=== PATIENT | female | born 1945 | race Caucasian/White ===

== ENCOUNTER 2017-07-29 21:57 | Inpatient (IN) | payer MEDICARE, OTHER ==
[~2017-07-29] VITALS: Ht 162.6 cm; Wt 73.0 kg
[~2017-07-29 21:57] MED LIST: BACT2OIN TOP; HUMALOG 70/30 SQ; SULF-154 PO
[2017-07-29 21:59] VITALS: BP 147/80; PULSE 62; RESP 18
[2017-07-29 22:10] VITALS: O2SAT 94
[2017-07-29 22:11] VITALS: TEMP 97
[2017-07-29] MEDS ORDERED: DEXT 5%-NACL 0.9% 1000 ML INJ 1,000 ML IV SCH (22:16)
--- NOTE | 2017-07-29 22:16 | PD ---
HPI Chief Complaint: Respiratory Distress Time Seen by Provider: 22:07 Travel History International Travel<30 days: No Contact w/Intl Traveler<30days: No Traveled to known affect area: No History of Present Illness HPI The patient is a 72 year old female who presents to the [facility] emergency department with a history of having a decreased level of consciousness at her local half-way prior to arrival. The patient on ambulance services arrival was noted to have an O2 saturation on nasal cannula in the 60s, rales audible bilaterally, and a blood sugar of 20. IV access was obtained and the patient was given D10 IV, the patient's blood sugar came up to 173. The patient's level of consciousness improved. The patient was placed on CPAP and her oxygenation improved into the 90s. No Lasix was administered prior to arrival. 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 The patient on arrival is awake and alert. The patient denies having any chest pain or shortness of breath currently. The patient reports that she has had a diminished appetite. She reports that her insulin was administered today, however she is unsure of the time. She denies having any abdominal pain, nausea, vomiting, or diarrhea. The patient was briefly placed on oximetry well CPAP was changed to BiPAP and was noted to have a room air oxygen in the upper 70s. She denies having any worsening lower extremity edema. She denies having any known fevers. The patient reports that she has had a nonproductive cough and congestion over the last 2 days. I review systems otherwise she denies having any neck pain, urinary symptoms, or new neurologic symptoms. 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 Cardiovascular Problems: Yes Diabetes: Yes ?: Not Menopausal: Yes Past Surgical History Narrative Surgical The patient's past surgical history is significant for three-vessel coronary artery bypass grafting. Cholecystectomy: Yes Social History Alcohol Use: No Tobacco Use: No Substance Use: No Allergies-Medications (Allergen,Severity, Reaction): Coded Allergies: No Known Allergies (Verified , 07/29/17) Reported Meds & Prescriptions Reported Meds & Active Scripts Active Reported [Skin Cream] TP BID Tylenol (Acetaminophen) 325 Mg Tab 650 Mg PO Q6H PRN Tussin Cough Liq (Dextromethorphan HBr) 15 Mg/5 Ml Syp 10 Ml PO Q8H PRN Humalog Inj (Insulin Human Lispro) 1,000 Unit/10 Ml Vial 4-10 Units SQ QID Max dose at bedtime:( )units; sugars < 70,(0)units; sugars 150-199,(2)units; sugars 200-249,(4)units; sugars 250-299,(7)units; sugars 300-349,(10)units; sugars more than 349,(12)units. Humalog Inj (Insulin Human Lispro) 1,000 Unit/10 Ml Vial 4-10 Units SQ ACHS Max dose at bedtime:( )units; sugars < 70,(0)units; sugars 150-199,(2)units; sugars 200-249,(4)units; sugars 250-299,(7)units; sugars 300-349,(10)units; sugars more than 349,(12)units. Duoneb (Ipratropium-Albuterol Neb) 0.5-2.5 Mg/3 Ml Neb 1 Nebule INH Q6HR NEB Carvedilol 12.5 Mg Tab 12.5 Mg PO BID Losartan (Losartan Potassium) 25 Mg Tab 25 Mg PO DAILY Lasix (Furosemide) 20 Mg Tab 20 Mg PO DAILY Lantus Inj (Insulin Glargine) 1,000 Unit/10 Ml Vial 40 Units SQ DAILY Famotidine 20 Mg Tab 20 Mg PO HS Docusate Sodium 100 Mg Cap 100 Mg PO HS Atorvastatin (Atorvastatin Calcium) 40 Mg Tab 40 Mg PO HS Aspirin Low Dose (Aspirin) 81 Mg Chew 81 Mg CHEW DAILY Amlodipine (Amlodipine Besylate) 2.5 Mg Tab 2.5 Mg PO DAILY Review of Systems Except as stated in HPI: all other systems reviewed are Neg General / Constitutional: No: Fever Eyes: No: Visual changes HENT: Positive: Congestion, No: Headaches Cardiovascular: No: Chest Pain or Discomfort Respiratory: Positive: Cough, Shortness of Breath Gastrointestinal: Positive: Loss of Appetite, No: Nausea, Vomiting, Diarrhea, Abdominal Pain Genitourinary: No: Dysuria Musculoskeletal: No: Pain Skin: No Rash Neurologic: Positive: Change in Mentation, No: Weakness, Focal Abnormalities, Slurred Speech, Sensory Disturbance Psychiatric: No: Depression Endocrine: No: Polydipsia Hematologic/Lymphatic: No: Easy Bruising Physical Exam Narrative General: The patient is a well-developed well-nourished female, in no acute distress, intermittent productive sounding cough on examination. Head and Neck exam: Head is normocephalic atraumatic. Eyes: EOMI, pupils are equal round and reactive to light. Nose: Midline septum with pink mucous membranes Mouth: Dentition unremarkable. Moist mucus membranes. Posterior oropharynx is not erythematous. No tonsillar hypertrophy. Uvula midline. Airway patent. Neck: No palpable lymphadenopathy. No nuchal rigidity. No thyromegaly. Cardiovascular: Regular rate and rhythm without murmurs, gallops, or rubs. No pulse deficit to the extremities on simultaneous auscultation and palpation of her radial artery. Lungs: The patient is noted to have crackles in bilateral bases, soft expiratory wheezes audible posteriorly, crackles audible anteriorly. No accessory muscle use. No paroxysmal abdominal breathing. Abdomen: Soft, without tenderness to palpation in all 4 quadrants of the abdomen. No guarding, rebound, or rigidity. Normal bowel sounds are audible. No tenderness on palpation of McBurney's point. Negative Londono's sign. Extremities: No clubbing, cyanosis, or edema. 2+ pulses in all 4 extremities. No calf tenderness on palpation. Back: No spinous process tenderness to palpation. No costovertebral angle tenderness to palpation. Neurologic Exam: Grossly nonfocal. Skin Exam: No rash noted. Intact skin that is warm and dry. Data Data Last Documented VS Vital Signs Date Time Temp Pulse Resp B/P (MAP) Pulse Ox O2 Delivery O2 Flow Rate FiO2 07/29/17 23:49 93 Nasal Cannula 4.00 07/29/17 23:46 63 20 124/59 (80) 07/29/17 22:13 100 07/29/17 22:11 97.0 Orders Orders Resp Request For Service (07/29/17 22:07) Electrocardiogram (07/29/17 22:07) Complete Blood Count With Diff (07/29/17 22:07) Comprehensive Metabolic Panel (07/29/17 22:07) Creatine Kinase (Cpk) (07/29/17 22:07) Ckmb (Isoenzyme) Profile (07/29/17 22:07) Troponin I (07/29/17 22:07) B-Type Natriuretic Peptide (07/29/17 22:07) Prothrombin Time / Inr (Pt) (07/29/17:) Act Partial Throm Time (Ptt) (07/29/17 22:07) Arterial Blood Gas (Abg) (07/29/17 22:07) C-Reactive Protein (Crp) (07/29/17 22:07) Lipase (07/29/17:) Urinalysis - C+S If Indicated (07/29/17 22:) Magnesium (Mg) (07/29/17 22:07) Chest, Single Ap (07/29/17:) Iv Access Insert/Monitor (07/29/17:) Ecg Monitoring (07/29/17:) Oximetry (07/29/17:) Urinary Catheter Insert/Apply (07/29/17:) Bedside Glucose Q15M (07/29/17 22:16) Hypoglycemia 70 Mg/Dl Or < (07/29/17 22:16) Dextrose 50% In [place] (Vial) Inj (D50w (Vi (07/29/17 22:30) Dext 5%-Nacl 0.9% 1000 Ml Inj (D5w-Ns 10 (07/29/17 22:16) Furosemide Inj (Lasix Inj) (07/29/17 22:30) Sodium Chloride 0.9% Flush (Ns Flush) (07/29/17 22:30) Methylprednisolone So Succ Inj (Solumedr (07/29/17 22:30) Albuterol-Ipratropium Neb (Duoneb Neb) (07/29/17 22:30) Lactic Acid Sepsis Protocol (07/29/17 22:17) Blood Culture (07/29/17 22:17) Urine Culture (07/29/17 22:15) Dextrose 50% In [place] (Syr) Inj (D50w (Syr (07/29/17 23:05) CKMB (07/29/17 22:15) CKMB% (07/29/17 22:15) Ceftriaxone Inj (Rocephin Inj) (07/30/17 00:00) Azithromycin Inj (Zithromax Inj) (07/30/17 00:00) Admit Order (Ed Use Only) (07/30/17 00:08) Labs Laboratory Tests Test 07/29/17 22:15 07/29/17 22:19 07/29/17 22:25 White Blood Count 13.8 TH/MM3 Red Blood Count 4.20 MIL/MM3 Hemoglobin 12.5 GM/DL Hematocrit 38.3 % Mean Corpuscular Volume 91.3 FL Mean Corpuscular Hemoglobin 29.9 PG Mean Corpuscular Hemoglobin Concent 32.7 % Red Cell Distribution Width 14.4 % Platelet Count 176 TH/MM3 Mean Platelet Volume 8.5 FL Neutrophils (%) (Auto) 83.7 % Lymphocytes (%) (Auto) 8.1 % Monocytes (%) (Auto) 6.4 % Eosinophils (%) (Auto) 1.5 % Basophils (%) (Auto) 0.3 % Neutrophils # (Auto) 11.6 TH/MM3 Lymphocytes # (Auto) 1.1 TH/MM3 Monocytes # (Auto) 0.9 TH/MM3 Eosinophils # (Auto) 0.2 TH/MM3 Basophils # (Auto) 0.0 TH/MM3 CBC Comment DIFF FINAL Differential Comment Prothrombin Time 9.7 SEC Prothromb Time International Ratio 0.9 RATIO Activated Partial Thromboplast Time 21.3 SEC Urine Color LIGHT-YELLOW Urine Turbidity CLEAR Urine pH 5.0 Urine Specific [place] 1.009 Urine Protein 30 mg/dL Urine Glucose (UA) TRACE mg/dL Urine Ketones NEG mg/dL Urine Occult Blood NEG Urine Nitrite NEG Urine Bilirubin NEG Urine Urobilinogen LESS THAN 2.0 MG/DL Urine Leukocyte Esterase NEG Urine RBC 1 /hpf Urine WBC LESS THAN 1 /hpf Urine Squamous Epithelial Cells <1 /hpf Urine Bacteria MANY /hpf Urine Hyaline Casts 3 /lpf Urine Mucus FEW /lpf Microscopic Urinalysis Comment CULTURE INDICATED Blood Urea Nitrogen 38 MG/DL Creatinine 1.77 MG/DL Random Glucose 58 MG/DL Total Protein 7.1 GM/DL Albumin 2.7 GM/DL Calcium Level 9.1 MG/DL Magnesium Level 2.4 MG/DL Alkaline Phosphatase 102 U/L Aspartate Amino Transf (AST/SGOT) 40 U/L Alanine Aminotransferase (ALT/SGPT) 26 U/L Total Bilirubin 0.6 MG/DL Sodium Level 141 MEQ/L Potassium Level 4.5 MEQ/L Chloride Level 109 MEQ/L Carbon Dioxide Level 26.5 MEQ/L Anion Gap 6 MEQ/L Estimat Glomerular Filtration Rate 28 ML/MIN Total Creatine Kinase 155 U/L Creatine Kinase MB 1.4 NG/ML Troponin I LESS THAN 0.02 NG/ML C-Reactive Protein 6.98 MG/DL B-Type Natriuretic Peptide 510 PG/ML Lipase 128 U/L Blood Gas Puncture Site LT RADIAL Blood Gas Patient Temperature 98.6 Blood Gas HCO3 26 mmol/L Blood Gas Base Excess 2.4 mmol/L Blood Gas Oxygen Saturation 94 % Arterial Blood pH 7.44 Arterial Blood Partial Pressure CO2 39 mmHg Arterial Blood Partial Pressure O2 76 mmHG Arterial Blood Oxygen Content 15.6 Vol % Arterial Blood Carboxyhemoglobin 1.0 % Arterial Blood Methemoglobin 0.7 % Blood Gas Hemoglobin 11.7 G/DL Oxygen Delivery Device BiPAP Blood Gas Ventilator Setting IPAP 12/EPAP 6 Blood Gas Inspired Oxygen 50 % Lactic Acid Level 1.5 mmol/L [facility] Medical Decision Making Medical Screen Exam Complete: Yes Emergency Medical Condition: Yes Medical Record Reviewed: Yes Interpretation(s) Last Impressions Chest X-Ray 07/29/172206 Signed Impressions: Service Date/Time: Saturday, July 29, 2017 22:54 - CONCLUSION: 1. Patchy basilar airspace disease without significant effusion. Postop CABG and pacer lead placement. Meliton Jones MD Differential Diagnosis Congestive heart failure exacerbation, versus pneumonia, versus poor respiratory effort related to hypoglycemia and metabolic encephalopathy, versus acute coronary syndrome Narrative Course During the course of the patients emergency department visit, the patients history, examination, and differential diagnosis were reviewed with the patient. The patient had the patient was placed on a monitoring analyst with oximetry and blood pressure monitoring. An ECG was done on arrival. The patient's ECG reveals an electronic atrial paced rhythm heart rate of 63, no acute ST segment elevation or depression is noted. QRS duration is 100 ms, QTC 446 ms. IV access obtained and blood work sent for analysis. The patient was placed on BiPAP by respiratory therapy. An ABG will be done. The patient was initially provided DuoNeb 3, Lasix 40 mg IV. A Velasquez catheter will be placed to gravity. The patient's laboratory studies were reviewed and remarkable for white count of 13.8, hemoglobin 12.5, platelets 176 with 83.7 neutrophils, lymphocytes 8.1, CMP is remarkable for chloride of 109, BUN 38, creatinine 1.77, glucose 58. The patient did have a drop in her blood sugar again during initial evaluation. The patient was given 1 amp of D50. The patient was started on D5 normal saline IV fluid drip. To be K was 155, troponin I less than 0.02, C-reactive protein was 6.98 and given the patient's elevated white blood cell count the patient was treated for possible pneumonia with Rocephin 1 g IV, azithromycin 500 IV, BNP is remarkable for being elevated at 510 suggesting a component of fluid overload and pulmonary edema, albumin 2.7, lipase 128, lactic acid 1.5, PT 9.7, PTT 21.3, urinalysis shows 30 protein many bacteria, culture indicated. Radiologic studies were reviewed and remarkable for a chest x-ray that shows patchy bibasilar airspace disease without significant effusion, postop CABG and pacer lead placement. The patients results were discussed with the patient, including the plan of care. I explained that further testing and/ or monitoring is indicated based on the patients history, examination, and/ or laboratory findings. Therefore, I recommended admission for additional evaluation. The patient expressed understanding and was agreeable with this plan. The patient was admitted to the hospital in guarded condition and [facility] Critical Care Narrative Aggregate critical care time was 35 minutes. Time to perform other separately billable procedures was not included in the critical care time. My time did not include minutes spent treating any other patients simultaneously or on activities that did not directly contribute to the patient's treatment. The services I provided to this patient were to treat and/or prevent clinically significant deterioration that could result in: Hypoxemic encephalopathy, versus respiratory failure, versus cardiovascular collapse from sepsis. I provided critical care services requiring my management, as noted below: Chart data review, documentation time, medication orders and management, vital sign assessments/reviewing monitor data, ordering and reviewing lab tests, ordering and interpreting/reviewing x-rays and diagnostic studies, care of the patient and discussion of the patient with the admitting physicians. Sepsis Criteria SIRS Criteria (2 or more): WBC > 64124, < 4000 or > 10% bands Physician Communication Physician Communication The patient's case was discussed with Dr. Amador who did agree to admit the patient for further evaluation and treatment at this time. Diagnosis Primary Impression: CHF exacerbation Qualified Codes: I50.9 - Heart failure, unspecified Additional Impressions: Hypoglycemia UTI (urinary tract infection) Qualified Codes: N39.0 - Urinary tract infection, site not specified Hypoxemia Admitting Information Admitting Physician Requests: it Mirian Lares MD Jul 29, 2017 22:16
[2017-07-29] MEDS ORDERED: FUROSEMIDE 40 MG/4 ML VIAL IV PUSH ONE (22:30)
[2017-07-29] MEDS ORDERED: methylPREDNISolone SOD SUCC 125 MG/2 ML VIAL IVP ONE (22:30)
[2017-07-29] MEDS ORDERED: SODIUM CHLORIDE 0.9% FLUSH 10 ML FLUSH IVF PRN (22:30)
[2017-07-29] MEDS ORDERED: DEXTROSE 50% IN WATER 50 ML VIAL(D50) IV PRN (22:30)
[2017-07-29 22:35] LABS: BACTERIA, URINE MANY /hpf; BLOOD, URINE NEG (NEG); COMMENT (UR) CULTURE INDICATED; CULTURE IF INDICATED CULTURE INDICATED; GLUCOSE,URINE TRACE mg/dL (NEG); HYALINE CAST, URINE 3 /lpf (RARE); KETONE, URINE NEG (NEG); MUCUS URINE FEW /lpf (OCC); NITRITE,URINE NEG (NEG); SQUAMOUS EPITHELIAL CELL URINE <1 /hpf (0-5); URINE COLOR LIGHT-YELLOW (YELLW/STRAW)
[2017-07-29 22:37] LABS: AUTOMATED NEUTROPHIL # 11.6 TH/MM3 (1.8-7.7); BASOPHIL % 0.3 % (0.0-2.0); EOSINOPHIL # 0.2 TH/MM3 (0-0.4); EOSINOPHIL % 1.5 % (0.0-4.0); HEMATOCRIT 38.3 % (35.0-46.0); HEMO FLAGS DIFF FINAL; LYMPH % 8.1 % (9.0-44.0); LYMPHOCYTE # 1.1 TH/MM3 (1.0-4.8); MEAN CELL VOLUME 91.3 FL (80.0-100.0); MEAN CORPUSCULAR HEMOGLOBIN 29.9 PG (27.0-34.0); MEAN CORPUSCULAR HGB CONC 32.7 % (32.0-36.0); MONO % 6.4 % (0.0-8.0); NEUT % 83.7 % (16.0-70.0); PLATELET COUNT 176 TH/MM3 (150-450); RED CELL DISTRIBUTION WIDTH 14.4 % (11.6-17.2); WHITE BLOOD COUNT 13.8 TH/MM3 (4.0-11.0)
[2017-07-29 22:39] LABS: BLOOD GAS BASE EXCESS 2.4 mmol/L (-2-2); BLOOD GAS HCO3 26 mmol/L (22-26); BLOOD GAS METHEMOGLOBIN 0.7 % (0-2); BLOOD GAS O2 HGB SATURATION 94 % (90-100); BLOOD GAS OXYGEN CONTENT 15.6 Vol % (12.0-20.0); BLOOD GAS PCO2 39 mmHg (38-42); BLOOD GAS PO2 76 mmHG (61-120); BLOOD GAS TOTAL HGB 11.7 G/DL (12.0-16.0); CRITICAL VALUE NO; TEMP CORR TO 98.6
[2017-07-29 22:40] LABS: DRAW SITE LT RADIAL; FIO2 50 %; NUMBER OF ARTERIAL PUNCTURES 1; OXYGEN DEVICE BiPAP; STAT YES; ULNAR PULSE PRESENT; VENT SETTINGS IPAP 12/EPAP 6
[2017-07-29 22:49] LABS: APTT (PATIENT) 21.3 SEC (24.3-30.1); INTERNATIONAL NORMALIZED RATIO 0.9 RATIO; PROTHROMBIN TIME - PATIENT 9.7 SEC (9.8-11.6)
[2017-07-29] MEDS ORDERED: LANTUS2P SQ (22:56)
[2017-07-29] MEDS ORDERED: ATOR40TA16 PO (22:56)
[2017-07-29] MEDS ORDERED: AMLO2.5T PO (22:56)
[2017-07-29] MEDS ORDERED: FURO1TAB62 PO (22:56)
[2017-07-29] MEDS ORDERED: ASPI81CH37 CHEW (22:56)
[2017-07-29] MEDS ORDERED: LOSA25TA PO (22:56)
[2017-07-29] MEDS ORDERED: DOCU100C PO (22:56)
[2017-07-29] MEDS ORDERED: FAMO20TA2 PO (22:56)
[2017-07-29] MEDS: RESP: ALBUTEROL 2.5 MG/IPRATROPIUM 0.5 MG NEB (SCH) INH ×2 (22:58→22:59)
[2017-07-29] MEDS ORDERED: IPRASOL INH (22:59)
[2017-07-29] MEDS ORDERED: CARV12.52 PO (22:59)
[2017-07-29] MEDS ORDERED: DEXTROSE 50% IN WATER 50 ML SYRINGE ONE (23:05)
[2017-07-29 23:10] LABS: ALKALINE PHOSPHATASE 102 U/L (45-117); ALT (GPT) 26 U/L (10-53); ANION GAP 6 MEQ/L (5-15); AST (GOT) 40 U/L (15-37); BICARBONATE 26.5 MEQ/L (21.0-32.0); BLOOD UREA NITROGEN 38 MG/DL (7-18); CHLORIDE 109 MEQ/L (98-107); CREATINE KINASE 155 U/L (26-192); GLOMERULAR FILTRATION RATE 28 ML/MIN (>89); MAGNESIUM 2.4 MG/DL (1.5-2.5); SODIUM (NA) 141 MEQ/L (136-145); TOTAL BILIRUBIN ADULT 0.6 MG/DL (0.2-1.0)
[2017-07-29 23:11] LABS: POTASSIUM 4.5 MEQ/L (3.5-5.1)
--- NOTE | 2017-07-29 23:17 | RADRPT ---
EXAM DATE/TIME: 07/29/2017 22:54 [place] COMPARISON: No previous studies available for comparison. INDICATIONS : Shortness of breath. MEDICAL HISTORY : Congestive heart failure. Hypertension Hypercholesterolemia. GERD. SURGICAL HISTORY : Pacemaker. CABG. ENCOUNTER: Initial ACUITY: 1 day PAIN SCORE: Non-responsive. LOCATION: Bilateral chest FINDINGS: There is a single airspace disease at the lung bases. No effusion. No pneumothorax. Heart size within normal limits. Postop CABG and pacer lead placement. CONCLUSION: 1. Patchy basilar airspace disease without significant effusion. Postop CABG and pacer lead placement . Meliton Jones MD on July 29, 2017 at 23:14 Board Certified Radiologist. This report was verified electronically.
[2017-07-29 23:23] LABS: CKMB 1.4 NG/ML (0.5-3.6)
[2017-07-29 23:46] VITALS: BP 124/59; PULSE 63; RESP 20; O2SAT 91
[2017-07-29 23:49] VITALS: O2SAT 93
[2017-07-30] VITALS (29 sets, daily range): BP systolic 125–154; BP diastolic 58–88; PULSE 60–87; RESP 18–20; TEMP 97.8–101.7; O2SAT 63–97
[2017-07-30] MEDS ORDERED: cefTRIAXone INJ 1,000 MG in SODIUM CHLORIDE 0.9% INJ 100 ML IV ONE ×2
[2017-07-30] MEDS ORDERED: AZITHROMYCIN INJ 500 MG in SODIUM CHLOR 0.9% 250 ML INJ 250 ML IV ONE ×2
[2017-07-30] MEDS ORDERED: GLUCAGON 1 MG/ML VIAL OTHER PRN ×2 (00:15→13:45)
[2017-07-30] MEDS ORDERED: NALOXONE HCL 0.4 MG/ML AMP IV PRN (00:15)
[2017-07-30] MEDS ORDERED: RESP: ALBUTEROL 2.5 MG/IPRATROPIUM 0.5 MG NEB (PRN) NEB (00:15)
[2017-07-30] MEDS ORDERED: SODIUM CHLORIDE 0.9% FLUSH 10 ML FLUSH IV FLUSH PRN (00:15)
[2017-07-30] MEDS ORDERED: DEXTROSE 50% IN WATER 50 ML VIAL(D50) IV PRN ×2 (00:15→13:45)
[2017-07-30] MEDS ORDERED: TYLE325T PO (00:21)
[2017-07-30] MEDS ORDERED: TUSS15SY PO (00:21)
[2017-07-30] MEDS ORDERED: HUMALOG SQ ×2 (00:21)
[2017-07-30] MEDS ORDERED: SKIN CREAM TP (00:21)
[2017-07-30] MEDS ORDERED: DEXTROSE 10% INJ 500 ML IV SCH (00:30)
--- NOTE | 2017-07-30 01:02 | HHI.HP ---
HPI Service [facility] Primary Care Physician No Primary Care Physician Admission Diagnosis hypoglycemia, chf exacerbation, pneumonia Diagnoses: Travel History International Travel<30 Days: No Contact w/Intl Traveler <30 Da: No Traveled to Known Affected Are: No History of Present Illness History from patient, ER physician communication, and review of alf notes. Patient reported that she actually does not remember anything. She does not know why she is in hospital. She thinks that she might have passed out. Per EMS communication and ER communication, patient was brought in from the alf because of altered mental status/unresponsiveness. Patient was found to have blood sugars in the 20s upon EMS arrival. She was also in respiratory distress for which they had to put her on nebulizer treatments and on BiPAP upon transport. By the time patient arrives ER, patient's blood sugars were improving initially. Patient also reports of one week of coughing. She denies shortness of breath associated with it. Also denies fever. She states that her cough was productive of whitish phlegm and that it has changed her voice. She denies any nausea or vomiting. Denies diarrhea. Denies any chest pains or abdominal pains. Denies any history of burning or pain on urination. She states that she is diabetic and takes pills. She also takes some insulin as needed. In the emergency room, patient's workup revealed elevated BNP for which Lasix 40 mg IV was given as well. She was then placed on Velasquez catheter and currently the Velasquez bag has 1400 cc of urine. Patient was also off BiPAP by the time I see her. She was saturating about 95% on 2 L nasal cannula I then after this Lasix treatment. Review of Systems Except as stated in HPI: all other systems reviewed are Neg Past Family Social History Past Medical History htn dm chf ppm Past Surgical History ppm Allergies: Coded Allergies: No Known Allergies (Verified , 07/29/17) Family History mother- dm Social History denies smoking/ etoh abuse/ drug abuse Physical Exam Vital Signs Vital Signs Date Time Temp Pulse Resp B/P (MAP) Pulse Ox O2 Delivery O2 Flow Rate FiO2 07/29/17 23:49 93 Nasal Cannula 4.00 9/11/17 23:46 63 20 124/59 (80) 91 Nasal Cannula 4.00 07/29/17 22:13 BiPAP 100 07/29/17 22:11 97.0 07/29/17 22:10 94 100 07/29/17 21:59 62 18 147/80 (102) Physical Exam GENERAL: This is a well-nourished, well-developed patient, in no apparent distress. SKIN: No rashes, ecchymoses or lesions. Cool and dry. HEAD: Atraumatic. Normocephalic. No temporal or scalp tenderness. EYES: . No scleral icterus. No injection or drainage. ENT: Nose without bleeding, purulent drainage or septal hematoma. Airway patent. NECK: Trachea midline. No JVD CARDIO: no JVD, regular rate and rhythm, no murmur appreciated RESPIRATORY: Clear to auscultation. Breath sounds equal bilaterally. No wheezes , rales, or rhonchi. GASTROINTESTINAL: Abdomen soft, non-tender, nondistended. No guarding. MUSCULOSKELETAL: Extremities without clubbing, cyanosis, or edema. . No calf tenderness. NEUROLOGICAL: Awake and alert. Motor and sensory grossly within normal limits. Normal speech. Laboratory Laboratory Tests Test 07/29/17 22:15 07/29/17 22:19 07/29/17 22:25 White Blood Count 13.8 Red Blood Count 4.20 Hemoglobin 12.5 Hematocrit 38.3 Mean Corpuscular Volume 91.3 Mean Corpuscular Hemoglobin 29.9 Mean Corpuscular Hemoglobin Concent 32.7 Red Cell Distribution Width 14.4 Platelet Count 176 Mean Platelet Volume 8.5 Neutrophils (%) (Auto) 83.7 Lymphocytes (%) (Auto) 8.1 Monocytes (%) (Auto) 6.4 Eosinophils (%) (Auto) 1.5 Basophils (%) (Auto) 0.3 Neutrophils # (Auto) 11.6 Lymphocytes # (Auto) 1.1 Monocytes # (Auto) 0.9 Eosinophils # (Auto) 0.2 Basophils # (Auto) 0.0 CBC Comment DIFF FINAL Differential Comment Prothrombin Time 9.7 Prothromb Time International Ratio 0.9 Activated Partial Thromboplast Time 21.3 Urine Color LIGHT-YELLOW Urine Turbidity CLEAR Urine pH 5.0 Urine Specific [place] 1.009 Urine Protein 30 Urine Glucose (UA) TRACE Urine Ketones NEG Urine Occult Blood NEG Urine Nitrite NEG Urine Bilirubin NEG Urine Urobilinogen LESS THAN 2.0 Urine Leukocyte Esterase NEG Urine RBC 1 Urine WBC LESS THAN 1 Urine Squamous Epithelial Cells <1 Urine Bacteria MANY Urine Hyaline Casts 3 Urine Mucus FEW Microscopic Urinalysis Comment CULTURE INDICATED Blood Urea Nitrogen 38 Creatinine 1.77 Random Glucose 58 Total Protein 7.1 Albumin 2.7 Calcium Level 9.1 Magnesium Level 2.4 Alkaline Phosphatase 102 Aspartate Amino Transf (AST/SGOT) 40 Alanine Aminotransferase (ALT/SGPT) 26 Total Bilirubin 0.6 Sodium Level 141 Potassium Level 4.5 Chloride Level 109 Carbon Dioxide Level 26.5 Anion Gap 6 Estimat Glomerular Filtration Rate 28 Total Creatine Kinase 155 Creatine Kinase MB 1.4 Troponin I LESS THAN 0.02 C-Reactive Protein 6.98 B-Type Natriuretic Peptide 510 Lipase 128 Blood Gas Puncture Site LT RADIAL Blood Gas Patient Temperature 98.6 Blood Gas HCO3 26 Blood Gas Base Excess 2.4 Blood Gas Oxygen Saturation 94 Arterial Blood pH 7.44 Arterial Blood Partial Pressure CO2 39 Arterial Blood Partial Pressure O2 76 Arterial Blood Oxygen Content 15.6 Arterial Blood Carboxyhemoglobin 1.0 Arterial Blood Methemoglobin 0.7 Blood Gas Hemoglobin 11.7 Oxygen Delivery Device BiPAP Blood Gas Ventilator Setting IPAP 12/EPAP 6 Blood Gas Inspired Oxygen 50 Lactic Acid Level 1.5 Date/Time Source Procedure Growth Status 07/29/17 22:33 Blood Peripheral Aerobic Blood Culture Pending Received 07/29/17 22:33 Blood Peripheral Anaerobic Blood Culture Pending Received 07/29/17 22:15 Urine Clean Catch Urine Culture Pending Worksheet Result Diagram: 07/29/17221407/29/172214 Imaging Last 48 hours Impressions Chest X-Ray 07/29/172206 Signed Impressions: Service Date/Time: Saturday, July 29, 2017 22:54 - CONCLUSION: 1. Patchy basilar airspace disease without significant effusion. Postop CABG and pacer lead placement. Meliton Jones MD Caprini VTE Risk Assessment Caprini VTE Risk Assessment: Mod/High Risk (score >= 2) Caprini Risk Assessment Model Point Value = 1 Point Value = 2 Point Value = 3 Point Value = 5 Age 41-60 Minor surgery BMI > 25 kg/m2 Swollen legs Varicose veins or History of unexplained or recurrent spontaneous Oral contraceptives or hormone replacement Sepsis (< 1 month) Serious lung disease, including pneumonia (< 1 month) Abnormal pulmonary function Acute myocardial infarction Congestive heart failure (< 1 month) History of inflammatory bowel disease Medical patient at bed rest Age 61-74 Arthroscopic surgery Major open surgery (> 45 min) Laparoscopic surgery (> 45 min) Malignancy Confined to bed (> 72 hours) Immobilizing plaster cast Central venous access Age >= 75 History of VTE Family history of VTE Factor V Leiden Prothrombin [id number] Lupus anticoagulant Anticardiolipin antibodies Elevated serum homocysteine Heparin-induced thrombocytopenia Other congenital or acquired thrombophilia Stroke (< 1 month) Elective arthroplasty Hip, pelvis, or leg fracture Acute spinal cord injury (< 1 month) Prophylaxis Regimen Total Risk Factor Score Risk Level Prophylaxis Regimen 0-1 Low Early ambulation 2 Moderate Order ONE of the following: *Sequential Compression Device (SCD) *Heparin 5000 units SQ BID 3-4 Higher Order ONE of the following medications: *Heparin 5000 units SQ TID *Enoxaparin/Lovenox 40 mg SQ daily (WT < 150 kg, CrCl > 30 mL/min) *Enoxaparin/Lovenox 30 mg SQ daily (WT < 150 kg, CrCl > 10-29 mL/min) *Enoxaparin/Lovenox 30 mg SQ BID (WT < 150 kg, CrCl > 30 mL/min) AND/OR *Sequential Compression Device (SCD) 5 or more Highest Order ONE of the following medications: *Heparin 5000 units SQ TID (Preferred with Epidurals) *Enoxaparin/Lovenox 40 mg SQ daily (WT < 150 kg, CrCl > 30 mL/min) *Enoxaparin/Lovenox 30 mg SQ daily (WT < 150 kg, CrCl > 10-29 mL/min) *Enoxaparin/Lovenox 30 mg SQ BID (WT < 150 kg, CrCl > 30 mL/min) AND *Sequential Compression Device (SCD) Assessment and Plan Assessment and Plan Impression: Unresponsiveness- secondary to severe life-threatening hypoglycemia Acute on chronic CHF exacerbation Leukocytosis with left shift Acute renal failure- secondary to previous labs from 2008. UTI. Plan: Patient was initially placed on D5 IV fluids. However given that she does have CHF exacerbation, and her blood sugars somewhat continued to drop despite administration of D5, I have switched her to D10 at 42 cc per hour. Fingersticks every 3 hours. We'll follow culture results. We'll monitor for evidence of infection as the cause of persistent hypoglycemia. Watch for fluid overload. Start patient on Lasix 40 mg IV every 12 hours. Patient received 1 dose in ER. Give another Lasix 40 mg IV 1 dose now. Serial cardiac enzymes and EKGs. We'll follow culture results. For now, would continue Rocephin. Resume home meds. DVT Prophylaxiswith heparin. GI prophylaxis on pantoprazole. Code Status DNR status to [facility]. Per alf. Discussed Condition With Patient, nursing staff, ER physician Physician Certification 2 Midnight Certification Type: Admission for Inpatient Services Order for Inpatient Services The services are ordered in accordance with Medicare regulations or non- Medicare payer requirements, as applicable. In the case of services not specified as inpatient-only, they are appropriately provided as inpatient services in accordance with the 2-midnight benchmark. Estimated LOS (days): 3 days is the estimated time the patient will need to remain in the hospital, assuming treatment plan goals are met and no additional complications. Post-Hospital Plan: SNF Chester Amador MD Jul 30, 2017 01:02
[2017-07-30] MEDS: RESP: ALBUTEROL 2.5 MG/IPRATROPIUM 0.5 MG NEB (SCH) NEB ×4 (04:00→21:36)
[2017-07-30] MEDS: SODIUM CHLORIDE 0.9% FLUSH 10 ML FLUSH IV FLUSH SCH ×2 (08:18→21:00)
[2017-07-30] MEDS ORDERED: FUROSEMIDE 40 MG/4 ML VIAL IV PUSH ONE (11:15)
--- NOTE | 2017-07-30 13:40 | HHI.PR ---
Subjective Remarks Follow up hypoglycemia, CHF. Patient is sleepy, but awakens and answers a few questions. Denies dyspnea, chest pain. Objective Vitals Vital Signs Date Time Temp Pulse Resp B/P (MAP) Pulse Ox O2 Delivery O2 Flow Rate FiO2 07/30/17 12:00 62 07/30/17 11:30 101.7 77 18 149/71 (97) 89 07/30/17 11:00 72 07/30/17 10:00 68 07/30/17 09:40 92 Nasal Cannula 5.00 07/30/17 09:00 62 07/30/17 08:00 62 07/30/17 07:45 100.1 76 18 132/67 (88) 87 07/30/17 07:00 65 07/30/17 06:00 62 07/30/17 05:00 80 07/30/17 03:00 75 07/30/17 03:00 97.8 75 18 154/88 (110) 93 07/30/17 02:25 07/30/17 01:27 61 20 125/58 (80) 90 Nasal Cannula 6.00 07/29/17 23:49 93 Nasal Cannula 4.00 07/29/17 23:46 63 20 124/59 (80) 91 Nasal Cannula 4.00 07/29/17 22:13 BiPAP 100 07/29/17 22:11 97.0 07/29/17 22:10 94 100 07/29/17 21:59 62 18 147/80 (102) I/O 07/29/17 07/29/17 07/29/17 07/30/17 07/30/17 07/30/17 07:00 15:00 23:00 07:00 15:00 23:00 Intake Total 549 ml Output Total 600 ml 450 ml Balance -600 ml 99 ml Intake Oral 0 ml IV Total 549 ml Output Urine Total 600 ml 450 ml # Bowel Movements 0 Result Diagram: 07/29/17221407/29/172214 Imaging Last Impressions Chest X-Ray 07/29/172206 Signed Impressions: Service Date/Time: Saturday, July 29, 2017 22:54 - CONCLUSION: 1. Patchy basilar airspace disease without significant effusion. Postop CABG and pacer lead placement. Meliton Jones MD Objective Remarks General: Elderly female in no acute distress. Heart: Regular rate and rhythm. No murmur. Lungs: Clear to auscultation bilaterally. No wheezes, rales, or rhonchi. Breathing is nonlabored. Abdomen: Soft, nontender, nondistended. Extremities: No lower extremity edema. Psych: Sleeping, but awakens and answers questions. Procedures None Urinary Catheter: Yes Assessment to: Continue Velasquez insert reason: Measure Accurate Output Vascular Central Line Catheter: No A/P Problem List: (1) Chronic systolic CHF (congestive heart failure) ICD Code: I50.22 - Chronic systolic (congestive) heart failure (2) CHF exacerbation ICD Code: I50.9 - Heart failure, unspecified (3) Hypoglycemia ICD Code: E16.2 - Hypoglycemia, unspecified (4) UTI (urinary tract infection) ICD Code: N39.0 - Urinary tract infection, site not specified (5) Acute renal failure ICD Code: N17.9 - Acute kidney failure, unspecified Assessment and Plan 1. Unresponsiveness: Secondary to severe hypoglycemia: Glucose has improved. Adjust IV fluids. Add sliding scale insulin coverage. 2. Acute exacerbation of chronic systolic congestive heart failure: Continue diuresis with Lasix. Caution with IV fluids. Check serial cardiac enzymes and EKGs, which are negative so far 3. UTI: Continue antibiotics. 4. Acute renal failure: Monitor BUN and creatinine. 5. DVT prophylaxis: Heparin. 6. GI prophylaxis: Protonix. 7. CODE STATUS: DO NOT RESUSCITATE. Vincenzo Vazquez MD Jul 30, 2017 13:40
[2017-07-30] MEDS ORDERED: DEXT 5%-NACL 0.9% 1000 ML INJ 1,000 ML IV SCH (13:45)
--- NOTE | 2017-07-30 14:07 | EKG ---
Date Performed: 07/29/2017 Time Performed: 22:03:57 PTAGE: 72 years EKG: ELECTRONIC ATRIAL PACEMAKER POSSIBLE INFERIOR MYOCARDIAL INFARCTION ABNORMAL RHYTHM ECG NO PREVIOUS TRACING DOCTOR: Letitia Rai Interpretating Date/Time 07/30/2017 14:05:42
[2017-07-30] MEDS: INSULIN ASPART SUPPLEMENTAL SCALE SQ SCH ×2 (16:00→21:18)
[2017-07-30] MEDS: ACETAMINOPHEN 500 MG CPLT PO PRN (16:25)
[2017-07-30] MEDS: FUROSEMIDE 40 MG/4 ML VIAL IV PUSH SCH (16:52)
[2017-07-30] MEDS: cefTRIAXone INJ 1,000 MG in SODIUM CHLORIDE 0.9% INJ 100 ML IV SCH (21:06)
[2017-07-31] VITALS (30 sets, daily range): BP systolic 121–142; BP diastolic 48–68; PULSE 60–87; RESP 18–20; TEMP 98.2–99.5; O2SAT 88–93
[2017-07-31] MEDS: RESP: ALBUTEROL 2.5 MG/IPRATROPIUM 0.5 MG NEB (SCH) NEB ×3 (03:42→21:39)
[2017-07-31 05:53] LABS: AUTOMATED NEUTROPHIL # 18.5 TH/MM3 (1.8-7.7); BASOPHIL % 0.1 % (0.0-2.0); HEMATOCRIT 30.5 % (35.0-46.0); HEMO FLAGS DIFF FINAL; LYMPH % 2.7 % (9.0-44.0); LYMPHOCYTE # 0.5 TH/MM3 (1.0-4.8); MEAN CELL VOLUME 89.8 FL (80.0-100.0); MEAN CORPUSCULAR HGB CONC 33.5 % (32.0-36.0); MONO % 3.5 % (0.0-8.0); NEUT % 93.7 % (16.0-70.0); PLATELET COUNT 159 TH/MM3 (150-450); RED CELL DISTRIBUTION WIDTH 14.3 % (11.6-17.2); WHITE BLOOD COUNT 19.8 TH/MM3 (4.0-11.0)
[2017-07-31] MEDS: INSULIN ASPART SUPPLEMENTAL SCALE SQ SCH ×5 (06:14→21:00)
[2017-07-31 06:39] LABS: BICARBONATE 26.5 MEQ/L (21.0-32.0); POTASSIUM 3.6 MEQ/L (3.5-5.1)
[2017-07-31] MEDS: SODIUM CHLORIDE 0.9% FLUSH 10 ML FLUSH IV FLUSH SCH ×2 (09:00→21:00)
[2017-07-31] MEDS: AZITHROMYCIN 250 MG TAB PO SCH (09:00)
[2017-07-31] MEDS: FUROSEMIDE 40 MG/4 ML VIAL IV PUSH SCH ×2 (09:00→17:15)
[2017-07-31] MEDS ORDERED: NS + KCL 20 MEQ INJ 1,000 ML IV SCH (09:45)
--- NOTE | 2017-07-31 09:58 | HHI.PR ---
Subjective Remarks Follow up pneumonia, CHF. States that she feels better today. She is much more alert. Denies chest pain or dyspnea. No nausea or vomiting. She does have a cough still. Objective Vitals Vital Signs Date Time Temp Pulse Resp B/P (MAP) Pulse Ox O2 Delivery O2 Flow Rate FiO2 07/31/17 07:34 99.5 62 18 121/48 (72) 90 07/31/17 06:00 81 07/31/17 05:00 60 07/31/17 04:00 67 07/31/17 03:43 98.8 78 141/67 (91) 90 07/31/17 03:07 67 07/31/17 02:00 68 07/31/17 01:00 67 07/31/17 00:00 60 07/30/17 23:24 99.3 66 135/66 (89) 92 07/30/17 23:00 67 07/30/17 22:54 60 07/30/17 21:36 92 Nasal Cannula 5.00 07/30/17 21:00 98.6 63 133/62 (85) 63 07/30/17 21:00 60 07/30/17 20:00 62 07/30/17 19:00 64 07/30/17 18:00 68 07/30/17 17:36 99.5 07/30/17 17:00 63 07/30/17 16:06 97 Nasal Cannula 5.00 07/30/17 16:00 85 07/30/17 15:20 101.0 82 18 142/69 (93) 85 07/30/17 15:00 66 07/30/17 14:00 87 07/30/17 13:00 76 07/30/17 12:00 62 07/30/17 11:30 101.7 77 18 149/71 (97) 89 07/30/17 11:00 72 07/30/17 10:00 68 I/O 07/30/17 07/30/17 07/30/17 07/31/17 07/31/17 07/31/17 07:00 15:00 23:00 07:00 15:00 23:00 Intake Total 549 ml 475 ml 240 ml 240 ml Output Total 450 ml 500 ml 500 ml Balance 99 ml 475 ml -260 ml -260 ml Intake Oral 0 ml 240 ml 240 ml IV Total 549 ml 475 ml Output Urine Total 450 ml 500 ml 500 ml # Bowel Movements 0 Result Diagram: 07/31/17 0530 07/31/17 0530 Imaging Last Impressions Chest X-Ray 07/29/172206 Signed Impressions: Service Date/Time: Saturday, July 29, 2017 22:54 - CONCLUSION: 1. Patchy basilar airspace disease without significant effusion. Postop CABG and pacer lead placement. Meliton Jones MD Objective Remarks General: Elderly female in no acute distress. Sitting up in a chair. Heart: Regular rate and rhythm. No murmur. Lungs: Scattered rhonchi. Breathing is nonlabored. Abdomen: Soft, nontender, nondistended. Extremities: No lower extremity edema. Psych: Alert, answers questions appropriately. Procedures None Urinary Catheter: Yes Assessment to: Remove Vascular Central Line Catheter: No A/P Problem List: (1) Chronic systolic CHF (congestive heart failure) ICD Code: I50.22 - Chronic systolic (congestive) heart failure (2) CHF exacerbation ICD Code: I50.9 - Heart failure, unspecified (3) Hypoglycemia ICD Code: E16.2 - Hypoglycemia, unspecified (4) UTI (urinary tract infection) ICD Code: N39.0 - Urinary tract infection, site not specified (5) Acute renal failure ICD Code: N17.9 - Acute kidney failure, unspecified Assessment and Plan 1. Unresponsiveness: Secondary to severe hypoglycemia: Glucose has improved. Adjust IV fluids. Add sliding scale insulin coverage. 2. Acute exacerbation of chronic systolic congestive heart failure: Continue diuresis with Lasix. Caution with IV fluids. Check serial cardiac enzymes and EKGs. 3. UTI: Continue antibiotics. 4. Acute renal failure: BUN and creatinine are increasing. Add gentle IV fluid hydration, using caution secondary to CHF. 5. DVT prophylaxis: Heparin. 6. GI prophylaxis: Protonix. 7. CODE STATUS: DO NOT RESUSCITATE. Vincenzo Vazquez MD Jul 31, 2017 09:58
[2017-07-31] MEDS: cefTRIAXone INJ 1,000 MG in SODIUM CHLORIDE 0.9% INJ 100 ML IV SCH (21:23)
[2017-08-01] VITALS (23 sets, daily range): BP systolic 130–157; BP diastolic 65–79; PULSE 55–76; RESP 17–22; TEMP 98.4–101.5; O2SAT 84–95
[2017-08-01] MEDS: RESP: ALBUTEROL 2.5 MG/IPRATROPIUM 0.5 MG NEB (SCH) NEB ×4 (03:10→20:32)
[2017-08-01 06:50] LABS: AUTOMATED NEUTROPHIL # 19.8 TH/MM3 (1.8-7.7); BASOPHIL % 0.1 % (0.0-2.0); EOSINOPHIL # 0.1 TH/MM3 (0-0.4); EOSINOPHIL % 0.7 % (0.0-4.0); HEMATOCRIT 29.4 % (35.0-46.0); HEMO FLAGS DIFF FINAL; LYMPH % 3.4 % (9.0-44.0); LYMPHOCYTE # 0.7 TH/MM3 (1.0-4.8); MEAN CELL VOLUME 89.7 FL (80.0-100.0); MEAN CORPUSCULAR HEMOGLOBIN 30.1 PG (27.0-34.0); MEAN CORPUSCULAR HGB CONC 33.6 % (32.0-36.0); MONO % 2.5 % (0.0-8.0); NEUT % 93.3 % (16.0-70.0); PLATELET COUNT 164 TH/MM3 (150-450); RED BLOOD COUNT 3.27 MIL/MM3 (4.00-5.30); RED CELL DISTRIBUTION WIDTH 14.4 % (11.6-17.2); WHITE BLOOD COUNT 21.2 TH/MM3 (4.0-11.0)
[2017-08-01 07:11] LABS: BICARBONATE 26.3 MEQ/L (21.0-32.0); POTASSIUM 3.5 MEQ/L (3.5-5.1)
[2017-08-01] MEDS: INSULIN ASPART SUPPLEMENTAL SCALE SQ SCH ×4 (08:00→20:35)
[2017-08-01] MEDS: FUROSEMIDE 40 MG/4 ML VIAL IV PUSH SCH ×2 (09:28→17:42)
[2017-08-01] MEDS: SODIUM CHLORIDE 0.9% FLUSH 10 ML FLUSH IV FLUSH SCH ×2 (09:29→20:35)
[2017-08-01] MEDS: AZITHROMYCIN 250 MG TAB PO SCH (09:29)
--- NOTE | 2017-08-01 10:46 | HHI.PR ---
Subjective Remarks Follow-up pneumonia, CHF. The patient denies shortness of breath or chest pain. She does have significant cough. No nausea or vomiting. Objective Vitals Vital Signs Date Time Temp Pulse Resp B/P (MAP) Pulse Ox O2 Delivery O2 Flow Rate FiO2 08/01/17 10:00 71 08/01/17 08:00 63 08/01/17 07:59 92 Nasal Cannula 5.00 08/01/17 07:15 70 21 137/65 (89) 86 08/01/17 07:15 86 Nasal Cannula 6.00 Humidified 08/01/17 07:15 70 08/01/17 06:00 72 08/01/17 05:00 64 08/01/17 04:00 64 08/01/17 03:00 70 08/01/17 03:00 99.2 67 18 151/79 (103) 92 08/01/17 02:00 65 08/01/17 01:00 64 08/01/17 00:00 64 07/31/17 23:00 81 07/31/17 23:00 99.1 70 18 142/67 (92) 90 07/31/17 22:00 66 07/31/17 21:00 60 07/31/17 20:00 74 07/31/17 19:00 98.2 69 20 139/63 (88) 92 07/31/17 19:00 64 07/31/17 18:00 63 07/31/17 17:00 65 07/31/17 16:00 68 07/31/17 15:32 93 Nasal Cannula 5.00 07/31/17 15:15 98.5 64 18 124/68 (86) 91 07/31/17 15:00 65 07/31/17 14:00 73 07/31/17 13:00 77 07/31/17 12:00 87 07/31/17 11:09 98.3 70 18 127/60 (82) 90 07/31/17 11:00 69 I/O 07/31/17 07/31/17 07/31/17 08/01/17 08/01/17 08/01/17 07:00 15:00 23:00 07:00 15:00 23:00 Intake Total 240 ml 650 ml 240 ml Output Total 500 ml 400 ml 850 ml Balance -260 ml 250 ml -610 ml Intake Oral 240 ml 650 ml 240 ml Output Urine Total 500 ml 400 ml 850 ml Result Diagram: 08/01/17 0540 08/01/17 0540 Imaging Last Impressions Chest X-Ray 07/29/172206 Signed Impressions: Service Date/Time: Saturday, July 29, 2017 22:54 - CONCLUSION: 1. Patchy basilar airspace disease without significant effusion. Postop CABG and pacer lead placement. Meliton Jones MD Objective Remarks General: Elderly female in no acute distress. Heart: Regular rate and rhythm. No murmur. Lungs: Scattered rhonchi. Breathing is nonlabored. Abdomen: Soft, nontender, nondistended. Extremities: No lower extremity edema. Psych: Alert, answers questions appropriately. Procedures None Urinary Catheter: Yes Assessment to: Remove Vascular Central Line Catheter: No A/P Problem List: (1) Chronic systolic CHF (congestive heart failure) ICD Code: I50.22 - Chronic systolic (congestive) heart failure (2) CHF exacerbation ICD Code: I50.9 - Heart failure, unspecified (3) Hypoglycemia ICD Code: E16.2 - Hypoglycemia, unspecified (4) UTI (urinary tract infection) ICD Code: N39.0 - Urinary tract infection, site not specified (5) Acute renal failure ICD Code: N17.9 - Acute kidney failure, unspecified Assessment and Plan 1. Unresponsiveness: Secondary to severe hypoglycemia. Glucose has improved. Continue sliding scale insulin coverage. 2. Acute exacerbation of chronic systolic congestive heart failure: Continue diuresis with Lasix. Caution with IV fluids. Recheck chest x-ray. 3. UTI: Continue antibiotics. 4. Acute renal failure: BUN and creatinine are stable. Monitor labs. 5. DVT prophylaxis: Heparin. 6. GI prophylaxis: Protonix. 7. Leukocytosis: WBCs increasing. Questionable pneumonia. Continue antibiotics. 8. CODE STATUS: DO NOT RESUSCITATE. Vincenzo Vazquez MD Aug 01, 2017 10:45
--- NOTE | 2017-08-01 12:45 | RADRPT ---
EXAM DATE/TIME: 08/01/2017 11:13 [place] COMPARISON: CHEST SINGLE AP, July 29, 2017, 22:54. INDICATIONS : Shortness of breath. MEDICAL HISTORY : Congestive heart failure. Hypertension Hypercholesterolemia. GERD SURGICAL HISTORY : CABG. Pacemaker. ENCOUNTER: Subsequent ACUITY: 4 - 6 days PAIN SCORE: 0/10 LOCATION: Bilateral upper chest FINDINGS: Median sternotomy wires are noted status-post cardiac surgery. A left subclavian dual lead pacemaker has its tips in the right atrium and right ventricle. No pneumothorax is noted. Bibasilar infiltra gamaliel are noted consistent with atelectasis and/or pneumonia. Clinical correlation is recommended. CONCLUSION: 1. Bibasilar infiltrates consistent with atelectasis and/or pneumonia. Clinical correlation is lupis mmended. Jack Todd MD on August 01, 2017 at 12:33 Board Certified Radiologist. This report was verified electronically.
[2017-08-01] MEDS: ACETAMINOPHEN 500 MG CPLT PO PRN (14:42)
--- NOTE | 2017-08-01 15:33 | PD.CONS ---
HPI Service Nephrology Consult Requested By Dr. Vazquez Reason for Consult Acute renal failure Primary Care Physician No Primary Care Physician History of Present Illness Patient is a 72-year-old white female with history of diabetes, hypertension, confusion is in a half-way she was found to have hypoglycemia altered mental status and she stated she thinks she passed out but did not recall the exact events, all she remembers she was told to go to the hospital, she cries frequently during the interview, she is forgetful and has underlying dementia, she did do not recall any history of kidney problems in the past, she does have a history of congestive heart failure. Review of Systems ROS Limitations: Clinical Condition Past Family Social History Allergies: Coded Allergies: No Known Allergies (Verified , 07/29/17) Past Medical History Diabetes Hypertension Congestive heart failure History of pneumonia Hypoglycemia Dementia Blindness Past Surgical History Pacemaker inserted CABG Eye surgery Reported Medications Reported Meds & Active Scripts Active Reported [Skin Cream] TP BID Tylenol (Acetaminophen) 325 Mg Tab 650 Mg PO Q6H PRN Tussin Cough Liq (Dextromethorphan HBr) 15 Mg/5 Ml Syp 10 Ml PO Q8H PRN Humalog Inj (Insulin Human Lispro) 1,000 Unit/10 Ml Vial 4-10 Units SQ QID Max dose at bedtime:( )units; sugars < 70,(0)units; sugars 150-199,(2)units; sugars 200-249,(4)units; sugars 250-299,(7)units; sugars 300-349,(10)units; sugars more than 349,(12)units. Humalog Inj (Insulin Human Lispro) 1,000 Unit/10 Ml Vial 4-10 Units SQ ACHS Max dose at bedtime:( )units; sugars < 70,(0)units; sugars 150-199,(2)units; sugars 200-249,(4)units; sugars 250-299,(7)units; sugars 300-349,(10)units; sugars more than 349,(12)units. Duoneb (Ipratropium-Albuterol Neb) 0.5-2.5 Mg/3 Ml Neb 1 Nebule INH Q6HR NEB Carvedilol 12.5 Mg Tab 12.5 Mg PO BID Losartan (Losartan Potassium) 25 Mg Tab 25 Mg PO DAILY Lasix (Furosemide) 20 Mg Tab 20 Mg PO DAILY Lantus Inj (Insulin Glargine) 1,000 Unit/10 Ml Vial 40 Units SQ DAILY Famotidine 20 Mg Tab 20 Mg PO HS Docusate Sodium 100 Mg Cap 100 Mg PO HS Atorvastatin (Atorvastatin Calcium) 40 Mg Tab 40 Mg PO HS Aspirin Low Dose (Aspirin) 81 Mg Chew 81 Mg CHEW DAILY Amlodipine (Amlodipine Besylate) 2.5 Mg Tab 2.5 Mg PO DAILY Active Ordered Medications Current Medications Medications (Trade) Dose Ordered Sig/Celi Route Start Time Stop Time Status Last Admin (NS Flush) 2 ml UNSCH PRN IV FLUSH 07/30/17 00:15 07/30/17 16:52 (NS Flush) 2 ml BID IV FLUSH 07/30/17 09:00 08/01/17 09:29 (Narcan Inj) 0.4 mg UNSCH PRN IV 07/30/17 00:15 (Duoneb Neb) 1 ampule Q6HR NEB NEB 07/30/17 04:00 08/01/17 03:10 (Duoneb Neb) 1 ampule Q2HR NEB PRN NEB 07/30/17 00:15 (Lasix Inj) 40 mg BID@09,18 IV PUSH 07/30/17 18:00 08/01/17 09:28 Ceftriaxone Sodium 1000 mg/ Sodium Chloride 100 ml @ 200 mls/hr Q24H IV 07/30/17 22:00 07/31/17 21:23 (NovoLOG SUPPLEMENTAL SCALE) 1 ACHS SLIDING SCALE SQ 07/30/17 16:00 07/31/17 21:00 (D50w (Vial) Inj) 50 ml UNSCH PRN IV 07/30/17 13:45 (Glucagon Inj) 1 mg UNSCH PRN OTHER 07/30/17 13:45 (Tylenol) 500 mg Q4H PRN PO 07/30/17 16:15 08/01/17 14:42 (Zithromax) 500 mg DAILY PO 07/31/17 09:00 08/01/17 09:29 Family History Noncontributory Social History Denies smoking or alcohol use Physical Exam Vital Signs Vital Signs Date Time Temp Pulse Resp B/P (MAP) Pulse Ox O2 Delivery O2 Flow Rate FiO2 08/01/17 15:00 101.5 63 17 154/74 (100) 85 08/01/17 15:00 63 08/01/17 14:01 64 08/01/17 13:00 61 08/01/17 12:00 64 08/01/17 11:00 99.4 65 20 130/66 (87) 84 08/01/17 11:00 72 08/01/17 10:00 71 08/01/17 08:00 63 08/01/17 07:59 92 Nasal Cannula 5.00 08/01/17 07:15 70 21 137/65 (89) 86 08/01/17 07:15 86 Nasal Cannula 6.00 Humidified 08/01/17 07:15 70 08/01/17 06:00 72 08/01/17 05:00 64 08/01/17 04:00 64 08/01/17 03:00 70 08/01/17 03:00 99.2 67 18 151/79 (103) 92 08/01/17 02:00 65 08/01/17 01:00 64 08/01/17 00:00 64 07/31/17 23:00 81 07/31/17 23:00 99.1 70 18 142/67 (92) 90 07/31/17 22:00 66 07/31/17 21:00 60 07/31/17 20:00 74 07/31/17 19:00 98.2 69 20 139/63 (88) 92 07/31/17 19:00 64 07/31/17 18:00 63 07/31/17 17:00 65 07/31/17 16:00 68 07/31/17 15:32 93 Nasal Cannula 5.00 Physical Exam GENERAL: Well-nourished, well-developed patient. SKIN: Warm and dry. HEAD: Normocephalic. EYES: Blindness NECK: Supple, trachea midline. No JVD or lymphadenopathy. CARDIOVASCULAR: S1 and S2 diminished in intensity RESPIRATORY: Breath sounds decreased in bases GASTROINTESTINAL: Abdomen soft, non-tender, nondistended. EXTREMITIES: No cyanosis, or edema. NEUROLOGICAL: Awake, alert, but confused Laboratory Laboratory Tests Test 08/01/17 05:40 White Blood Count 21.2 Red Blood Count 3.27 Hemoglobin 9.9 Hematocrit 29.4 Mean Corpuscular Volume 89.7 Mean Corpuscular Hemoglobin 30.1 Mean Corpuscular Hemoglobin Concent 33.6 Red Cell Distribution Width 14.4 Platelet Count 164 Mean Platelet Volume 8.7 Neutrophils (%) (Auto) 93.3 Lymphocytes (%) (Auto) 3.4 Monocytes (%) (Auto) 2.5 Eosinophils (%) (Auto) 0.7 Basophils (%) (Auto) 0.1 Neutrophils # (Auto) 19.8 Lymphocytes # (Auto) 0.7 Monocytes # (Auto) 0.5 Eosinophils # (Auto) 0.1 Basophils # (Auto) 0.0 CBC Comment DIFF FINAL Differential Comment Blood Urea Nitrogen 52 Creatinine 2.01 Random Glucose 128 Calcium Level 8.4 Sodium Level 143 Potassium Level 3.5 Chloride Level 107 Carbon Dioxide Level 26.3 Anion Gap 10 Estimat Glomerular Filtration Rate 24 Date/Time Source Procedure Growth Status 07/29/17 22:33 Blood Peripheral Aerobic Blood Culture - Preliminary NO GROWTH IN 3 DAYS Resulted 07/29/17 22:33 Blood Peripheral Anaerobic Blood Culture - Preliminary NO GROWTH IN 3 DAYS Resulted 07/29/17 22:15 Urine Clean Catch Urine Culture - Final Lactobacillus Species Complete Result Diagram: 08/01/17 0540 08/01/17 0540 Imaging Last 24 hours Impressions Chest X-Ray 08/01/17 0000 Signed Impressions: Service Date/Time: July 11:13 - CONCLUSION: 1. Bibasilar infiltrates consistent with atelectasis and/or pneumonia. Clinical correlation is recommended. Jack Todd MD Assessment and Plan Problem List: (1) Acute renal failure ICD Codes: N17.9 - Acute kidney failure, unspecified Plan: Creatinine trended upwards and I agree with hydration, patient appears to be dehydrated at this point Ultrasound kidney will be obtaining Continue to monitor she may have underlying chronic kidney disease as well Avoid nephrotoxic agents (2) UTI (urinary tract infection) ICD Codes: N39.0 - Urinary tract infection, site not specified Plan: Her urine culture negative (3) Chronic systolic CHF (congestive heart failure) ICD Codes: I50.22 - Chronic systolic (congestive) heart failure Plan: Echocardiogram is ordered (4) Hypoglycemia ICD Codes: E16.2 - Hypoglycemia, unspecified Plan: Continue to monitor Sam Pike MD Aug 01, 2017 15:33
[2017-08-01] MEDS ORDERED: NS + KCL 20 MEQ INJ 1,000 ML IV SCH (16:15)
[2017-08-01] MEDS: cefTRIAXone INJ 1,000 MG in SODIUM CHLORIDE 0.9% INJ 100 ML IV SCH (20:35)
[2017-08-01] MEDS: methylPREDNISolone SOD SUCC 40 MG/1 ML VIAL IV SCH (20:35)
--- NOTE | 2017-08-01 21:37 | RADRPT ---
EXAM DATE/TIME: 08/01/2017 21:11 [facility] COMPARISON: No previous studies available for comparison. INDICATIONS : Shortness of breath. RADIATION DOSE: 4.56 CTDIvol (mGy) MEDICAL HISTORY : Congestive hearrt failure. Hypertension. Diabetes mellitus type 2. SURGICAL HISTORY : CABG ENCOUNTER: Initial ACUITY: 1 day PAIN SCALE: 0/10 LOCATION: chest TECHNIQUE: Volumetric scanning of the chest was performed. Using automated exposure control and adjustment of t he mA and/or kV according to patient size, radiation dose was kept as low as reasonably achievable to obtain optimal diagnostic quality images. DICOM format image data is available electronically for r eview and comparison. Follow-up recommendations for detected pulmonary nodules are based at a minimum on nodule size and pa tient risk factors according to Fleischner Society Guidelines. FINDINGS: Right perihilar and bilateral lower lobe consolidation noted. Mild consolidative change is seen poste riorly of the lingula as well. No effusion. No pneumothorax. Previous median sternotomy with chronic-appearing nonunion. No pericardial effusion. Cardiac pacer pr esent. CONCLUSION: Right perihilar and bibasilar pneumonia. Micheal Oliva MD on August 01, 2017 at 21:34 Board Certified Radiologist. This report was verified electronically.
--- NOTE | 2017-08-01 22:06 | RADRPT ---
EXAM DATE/TIME: 08/01/2017 19:59 [facility] COMPARISON: No previous studies available for comparison. INDICATIONS : Increased BUN/creatinine. MEDICAL HISTORY : Congestive heart failure. Hypercholesterolemia. Blindness. CAD. Hypertension. GERD. Renal failure. Arthritis. Diabetes. SURGICAL HISTORY : Cholecystectomy. Pacemaker. CABG. ENCOUNTER: Initial ACUITY: 1 day PAIN SCORE: 0/10 LOCATION: Bilateral flank MEASUREMENTS: RIGHT KIDNEY: 11.1 x 5.3 x 5.6 cm LEFT KIDNEY: 10.4 x 5.2 x 5.5 cm FINDINGS: RIGHT KIDNEY: Renal cortex is normal in thickness and echotexture. 16 mm lower pole cyst. No hydronephrosis, stone , or solid mass. LEFT KIDNEY: Renal cortex is normal in thickness and echotexture. 16 mm upper pole and 18 mm lower pole cysts. No hydronephrosis, stone, or solid mass. BLADDER: Within normal limits. CONCLUSION: No acute abnormality demonstrated. Benign-appearing bilateral renal cysts. Micheal Oliva MD on August 01, 2017 at 22:02 Board Certified Radiologist. This report was verified electronically.
[2017-08-02] VITALS (17 sets, daily range): BP systolic 122–171; BP diastolic 69–89; PULSE 63–79; RESP 16–20; TEMP 97.8–98.7; O2SAT 88–97
[2017-08-02] MEDS: RESP: ALBUTEROL 2.5 MG/IPRATROPIUM 0.5 MG NEB (SCH) NEB ×4 (04:52→21:01)
[2017-08-02] MEDS: INSULIN ASPART SUPPLEMENTAL SCALE SQ SCH ×4 (08:00→21:11)
[2017-08-02 08:03] LABS: POTASSIUM 4.1 MEQ/L (3.5-5.1)
[2017-08-02 08:07] LABS: AUTOMATED NEUTROPHIL # 12.3 TH/MM3 (1.8-7.7); BASOPHIL % 0.1 % (0.0-2.0); EOSINOPHIL % 0.1 % (0.0-4.0); HEMATOCRIT 33.4 % (35.0-46.0); HEMO FLAGS DIFF FINAL; LYMPH % 3.6 % (9.0-44.0); LYMPHOCYTE # 0.5 TH/MM3 (1.0-4.8); MEAN CELL VOLUME 90.3 FL (80.0-100.0); MEAN CORPUSCULAR HEMOGLOBIN 29.9 PG (27.0-34.0); MEAN CORPUSCULAR HGB CONC 33.1 % (32.0-36.0); MONO % 0.8 % (0.0-8.0); NEUT % 95.4 % (16.0-70.0); PLATELET COUNT 167 TH/MM3 (150-450); RED CELL DISTRIBUTION WIDTH 14.4 % (11.6-17.2); WHITE BLOOD COUNT 12.9 TH/MM3 (4.0-11.0)
--- NOTE | 2017-08-02 08:24 | ECHRPT ---
Indication: CONCLUSIONS The left ventricular systolic function is aswrywbv-fl-ldmcxzl reduced with an estimated ejection fra ction in the range of 35-40%. Normal left ventricular size. Wall thickness is normal. Hypokinetic apical anterior wall. Trace mitral valve regurgitation. Trace aortic valve regurgitation. There is trace tricuspid valve regurgitation. Echolinear structure in the RV suggestive of PPM/AICD please correlate clinically Normal estimated pulmonary pressures. Mild pulmonary valve regurgitation. BP: / HR: Rhythm: Sinus MEASUREMENTS (Male / Female) Normal Values Technical Quality:Fair 2D ECHO LV Diastolic Diameter PLAX 4.6 cm 4.2 - 5.9 / 3.9 - 5.3 cm LV Systolic Diameter PLAX 3.7 cm IVS Diastolic Thickness 1.0 cm 0.6 - 1.0 / 0.6 - 0.9 cm LVPW Diastolic Thickness 1.0 cm 0.6 - 1.0 / 0.6 - 0.9 cm LV Relative Wall Thickness 0.4 RV Internal Dim ED PLAX 2.1 cm LVOT Diameter 1.5 cm LA Systolic Diameter LX 3.7 cm 3.0 - 4.0 / 2.7 - 3.8 cm LV Ejection Fraction MOD 4C 40.2 % LV Ejection Fraction 4C AL 41.4 % M-MODE Aortic Root Diameter MM 2.9 cm AV Cusp Separation MM 1.7 cm DOPPLER AV Peak Velocity 147.0 cm/s AV Peak Gradient 8.6 mmHg LVOT Peak Velocity 108.0 cm/s LVOT Peak Gradient 4.7 mmHg AV Area Cont Eq pk 1.3 cm MV Area PHT 3.9 cm Mitral E Point Velocity 97.2 cm/s Mitral A Point Velocity 77.0 cm/s Mitral E to A Ratio 1.3 LV E' Lateral Velocity 10.1 cm/s Mitral E to LV E' Lateral Ratio 9.6 LV E' Septal Velocity 5.3 cm/s Mitral E to LV E' Septal Ratio 18.5 TR Peak Velocity 202.0 cm/s TR Peak Gradient 16.3 mmHg PV Peak Velocity 85.5 cm/s PV Peak Gradient 2.9 mmHg FINDINGS LEFT VENTRICLE The left ventricular systolic function is diiksclv-ff-vajwowv reduced with an estimated ejection fra ction in the range of 35-40%. Normal left ventricular size. Wall thickness is normal. Hypokinetic apical anterior wall. RIGHT VENTRICLE Normal right ventricular size and systolic function. LEFT ATRIUM The left atrial size is normal. RIGHT ATRIUM The right atrial size is normal. ATRIAL SEPTUM Normal atrial septal thickness without atrial level shunting by limited color doppler interrogation. AORTA The aortic root and proximal ascending aorta are normal in size on limited imaging. MITRAL VALVE Trace mitral valve regurgitation. AORTIC VALVE Trace aortic valve regurgitation. TRICUSPID VALVE There is trace tricuspid valve regurgitation. Normal estimated pulmonary pressures. PULMONARY VALVE Mild pulmonary valve regurgitation. VESSELS The inferior vena cava is normal in size. PERICARDIUM No pericardial effusion. Robi Self MD (Electronically Signed) Final Date:02 August 2017 08:23
[2017-08-02] MEDS: methylPREDNISolone SOD SUCC 40 MG/1 ML VIAL IV SCH ×2 (08:51→20:44)
[2017-08-02] MEDS: FUROSEMIDE 40 MG/4 ML VIAL IV PUSH SCH ×2 (08:51→18:28)
[2017-08-02] MEDS: SODIUM CHLORIDE 0.9% FLUSH 10 ML FLUSH IV FLUSH SCH ×2 (08:52→20:44)
[2017-08-02] MEDS: AZITHROMYCIN 250 MG TAB PO SCH (08:52)
--- NOTE | 2017-08-02 10:50 | HHI.PR ---
Subjective Remarks Follow up pneumonia, CHF. Patient thinks her breathing is a little better today. Denies chest pain. No events reported by nursing. Objective Vitals Vital Signs Date Time Temp Pulse Resp B/P (MAP) Pulse Ox O2 Delivery O2 Flow Rate FiO2 08/02/17 10:05 94 Non-Rebreather 15.00 08/02/17 05:57 Venturi Mask 50 08/02/17 04:56 94 BiPAP 45 08/02/17 04:51 94 45 08/02/17 04:00 97.8 67 18 151/69 (96) 97 08/02/17 04:00 Bi-Pap 45 08/02/17 04:00 79 08/02/17 00:00 Bi-Pap 45 08/02/17 00:00 63 08/02/17 00:00 98.3 68 16 165/81 (109) 91 08/01/17 23:02 93 40 08/01/17 20:00 Venturi Mask 50 08/01/17 20:00 68 08/01/17 20:00 98.4 55 22 157/76 (103) 86 08/01/17 18:00 67 08/01/17 17:00 60 08/01/17 16:34 95 Non-Rebreather 15.00 08/01/17 16:30 95 Non-Rebreather 15.00 08/01/17 16:07 19 08/01/17 16:07 90 Venturi Mask 6.00 08/01/17 16:00 76 08/01/17 15:00 101.5 63 17 154/74 (100) 85 08/01/17 15:00 63 08/01/17 14:01 64 08/01/17 13:00 61 08/01/17 12:00 64 08/01/17 11:00 99.4 65 20 130/66 (87) 84 08/01/17 11:00 72 I/O 08/01/17 08/01/17 08/01/17 08/02/17 08/02/17 08/02/17 07:00 15:00 23:00 07:00 15:00 23:00 Intake Total 240 ml 240 ml 669 ml Output Total 850 ml 850 ml 600 ml Balance -610 ml -610 ml 69 ml Intake Oral 240 ml 240 ml 240 ml IV Total 429 ml Output Urine Total 850 ml 850 ml 600 ml # Bowel Movements 0 Result Diagram: 08/02/17 0642 08/02/17 0642 Imaging Last Impressions Chest CT 08/01/17 1916 Signed Impressions: Service Date/Time: July 21:11 - CONCLUSION: Right perihilar and bibasilar pneumonia. Micheal Oliva MD Renal Ultrasound 08/01/17 0000 Signed Impressions: Service Date/Time: July 19:59 - CONCLUSION: No acute abnormality demonstrated. Benign-appearing bilateral renal cysts. Micheal Oliva MD Chest X-Ray 08/01/17 0000 Signed Impressions: Service Date/Time: July 11:13 - CONCLUSION: 1. Bibasilar infiltrates consistent with atelectasis and/or pneumonia. Clinical correlation is recommended. Jack Todd MD Objective Remarks General: Elderly female in no acute distress. On oxygen per mask. Heart: Regular rate and rhythm. No murmur. Lungs: Scattered rhonchi. Breathing is nonlabored. Abdomen: Soft, nontender, nondistended. Extremities: No lower extremity edema. Psych: Alert, answers questions appropriately. Procedures None Urinary Catheter: No Vascular Central Line Catheter: No A/P Problem List: (1) Chronic systolic CHF (congestive heart failure) ICD Code: I50.22 - Chronic systolic (congestive) heart failure (2) CHF exacerbation ICD Code: I50.9 - Heart failure, unspecified (3) Hypoglycemia ICD Code: E16.2 - Hypoglycemia, unspecified (4) UTI (urinary tract infection) ICD Code: N39.0 - Urinary tract infection, site not specified (5) Acute renal failure ICD Code: N17.9 - Acute kidney failure, unspecified Assessment and Plan 1. Unresponsiveness: Secondary to severe hypoglycemia. Glucose has improved. Continue sliding scale insulin coverage. 2. Acute exacerbation of chronic systolic congestive heart failure: Continue diuresis with Lasix. Caution with IV fluids. 3. UTI: Continue antibiotics. 4. Acute renal failure: Creatinine slightly better today. Monitor labs. Renal ultrasound noted. Appreciate nephrology recommendations. 5. DVT prophylaxis: Heparin. 6. GI prophylaxis: Protonix. 7. Leukocytosis: WBCs improving. Likely secondary to pneumonia. Continue antibiotics. 8. CODE STATUS: DO NOT RESUSCITATE. 9. Palliative care consult pending. 10. Pneumonia: Continue antibiotics, oxygen. Appreciate pulmonology recommendations. Vincenzo Vazquez MD Aug 02, 2017 10:50
--- NOTE | 2017-08-02 12:19 | HHI.NPPN ---
Subjective History of Present Illness 72-year-old with history of confusion, pneumonia and chronic kidney disease with MARTINA Additional Remarks has been on NRBFM as o2 sats low Review of Systems General Constitutional: Fatigue Objective Data Data Vital Signs Date Time Temp Pulse Resp B/P (MAP) Pulse Ox O2 Delivery O2 Flow Rate FiO2 08/02/17 10:05 94 Non-Rebreather 15.00 08/02/17 05:57 Venturi Mask 50 08/02/17 04:56 94 BiPAP 45 08/02/17 04:51 94 45 08/02/17 04:00 97.8 67 18 151/69 (96) 97 08/02/17 04:00 Bi-Pap 45 08/02/17 04:00 79 08/02/17 00:00 Bi-Pap 45 08/02/17 00:00 63 08/02/17 00:00 98.3 68 16 165/81 (109) 91 08/01/17 23:02 93 40 08/01/17 20:00 Venturi Mask 50 08/01/17 20:00 68 08/01/17 20:00 98.4 55 22 157/76 (103) 86 08/01/17 18:00 67 08/01/17 17:00 60 08/01/17 16:34 95 Non-Rebreather 15.00 08/01/17 16:30 95 Non-Rebreather 15.00 08/01/17 16:07 19 08/01/17 16:07 90 Venturi Mask 6.00 08/01/17 16:00 76 08/01/17 15:00 101.5 63 17 154/74 (100) 85 08/01/17 15:00 63 08/01/17 14:01 64 08/01/17 13:00 61 -: 08/02/17 0642 08/02/17 0642 Microbiology 08/01/17 Aerobic Blood Culture, Received Pending 08/01/17 Anaerobic Blood Culture, Received Pending 08/01/17 Aerobic Blood Culture, Received Pending 08/01/17 Anaerobic Blood Culture, Received Pending Physical Exam General Appearance: Well Developed Neck Neck Exam: Neck Supple Pulmonary Resp Exam: Decreased Bases Cardiology CV Exam: Regular Gastrointestinal/Abdomen GI Exam: Soft, Non-Tender Extremeties Extremities Exam: No Edema Neurologic Neuro Exam: Alert Assessment/Plan Problem List: (1) Acute renal failure ICD Codes: N17.9 - Acute kidney failure, unspecified Plan: Creatinine is trending downwards ultrasound showed chronic kidney disease with bilateral renal cysts decrease IVF as SOB Lasix given possible Pneumonia on Ceftriaxone Avoid nephrotoxic Follow BMP (2) UTI (urinary tract infection) ICD Codes: N39.0 - Urinary tract infection, site not specified Plan: Her urine culture negative (3) Chronic systolic CHF (congestive heart failure) ICD Codes: I50.22 - Chronic systolic (congestive) heart failure Plan: Echocardiogram is ordered (4) Hypoglycemia ICD Codes: E16.2 - Hypoglycemia, unspecified Plan: Continue to monitor Sam Pike MD Aug 02, 2017 12:19
--- NOTE | 2017-08-02 12:54 | PD.CONS ---
Consult Service Palliative Care Consult Requested By Dr. Vazquez Primary Care Physician No Primary Care Physician Reason for Consultation a. To assist with evaluation and management of symptoms including: Cough, dyspnea, anorexia, confusion b. To assist medical decision maker(s) with: better understanding of current medical conditions; weighing benefits/burdens of medical treatment options; making medical treatment decisions. . HPI History of Present Illness This 72-year-old female brought to the [facility] emergency department from a local [facility] due to altered level of consciousness. EMS found her to have an oxygen saturation in the 60s while on nasal cannula O2, pulmonary congestion and a blood sugar of 20. This was treated in the field, patient placed on CPAP with improved oxygenation and transported to the emergency department. She has a history of coronary artery disease, diabetes mellitus, hypertension, congestive heart failure and bilateral blindness. Her oxygenation declined in the emergency room requiring a brief course of BiPAP but has now been placed on a 15 L nonrebreather mask. ED course: * Upon initial evaluation labs and UA were drawn and the patient received 40 mg of IV Lasix, Solu-Medrol, DuoNeb, ceftriaxone and azithromycin. * Laboratory: WBC 13.8, hemoglobin 12.5, hematocrit 38.3, platelets 176, sodium 141, potassium 4.5, BUN 38, creatinine 1.77, troponin less than 0.02, B natriuretic peptide 510. ABG showed pH 7.44, PCO2 39, PaO2 76, HCO3 26, base excess +2.4 on 50% BiPAP mask. * Radiology: Chest x-ray showed patchy basilar airspace disease without significant effusion with postoperative CABG changes and pacer lead placement. This is an elderly lady resting in bed on a 100% nonrebreather mask in no acute distress. She is able to answer questions and provide history. She states she is and her son, Den, makes her decisions for her. She has little memory of what occurred prior to her admission. She is pleasant and confirms that she would not want CPR or mechanical ventilation. She states she just wants to be comfortable and passed naturally. . Function/Cognitive Trajectory She had previously lived independently with the assistance of her due to her bilateral blindness, however when her passed, she came to the [facility] continual care. She is totally blind and dependent for ADLs. Her heart function has worsened over time and ejection fraction now is 35-40%. She does have an implanted pacemaker. Her diabetes is worsening causing both renal and visual difficulties. Review of Systems Constitutional: DENIES: Diaphoretic episodes, Fatigue, Fever, Weight gain, Weight loss, Chills, Dizziness, Change in appetite, Night Sweats, Pain, Generalized weakness, Sleep problems Endocrine: DENIES: Abnorml menstrual pattern, Heat/cold intolerance, Polydipsia , Polyuria, Polyphagia Eyes: COMPLAINS OF: Vision loss Ears, nose, mouth, throat: DENIES: Tinnitus, Hearing loss, Vertigo, Nasal discharge, Oral lesions, Throat pain, Hoarseness, Ear Pain, Running Nose, Epistaxis, Sinus Pain, Toothache, Odynophagia Respiratory: COMPLAINS OF: Cough, Shortness of breath Cardiovascular: COMPLAINS OF: Dyspnea on Exertion Gastrointestinal: DENIES: Abdominal pain, Black stools, Bloody stools, Constipation, Diarrhea, Nausea, Vomiting, Difficulty Swallowing, Anorexia, Dyspepsia or heartburn, Excessive gas, Bloating, Vomiting blood Genitourinary: DENIES: Abnormal vaginal bleeding, Dysmenorrhea, Dyspareunia, Sexual dysfunction, Urinary frequency, Urinary incontinence, Urgency, Hematuria , Dysuria, Nocturia, Vaginal discharge, Hesitancy, Dribbling, Decreased stream Musculoskeletal: DENIES: Joint pain, Muscle aches, Stiffness, Joint Swelling, Back pain, Neck pain, Decreased range of motion Integumentary: DENIES: Abnormal pigmentation, Pruritus, Rash, Nail changes, Breast masses, Breast skin changes, Nipple discharge, Nodules, Tumors, Excessive dryness, Non-healing sores Hematologic/Lymphatics: DENIES: Bruising, Lymphadenopathy, Prolonged bleed w/ proced, History of transfusions Immunologic/Allergic: DENIES: Eczema, Urticaria Neurologic: DENIES: Abnormal gait, Headache, Localized weakness, Paresthesias, Seizures, Speech Problems, Tremor, Poor Balance, Change in smell or taste Psychiatric: DENIES: Anxiety, Confusion, Mood changes, Depression, Hallucinations, Agitation, Suicidal Ideation, Homicidal Ideation, Delusions, Anhedonia Past Family Social History Coded Allergies: No Known Allergies (Verified , 07/29/17) Past Medical History Diabetes Hypertension Hyperlipidemia Congestive heart failure, systolic type, EF 35-40% History of pneumonia Hypoglycemia Dementia Blindness Past Surgical History CABG Eye surgery Cholecystectomy (listed in medical records, however patient denies) Reported Medications Reported Meds & Active Scripts Active Reported [Skin Cream] TP BID Tylenol (Acetaminophen) 325 Mg Tab 650 Mg PO Q6H PRN Tussin Cough Liq (Dextromethorphan HBr) 15 Mg/5 Ml Syp 10 Ml PO Q8H PRN Humalog Inj (Insulin Human Lispro) 1,000 Unit/10 Ml Vial 4-10 Units SQ QID Max dose at bedtime:( )units; sugars < 70,(0)units; sugars 150-199,(2)units; sugars 200-249,(4)units; sugars 250-299,(7)units; sugars 300-349,(10)units; sugars more than 349,(12)units. Humalog Inj (Insulin Human Lispro) 1,000 Unit/10 Ml Vial 4-10 Units SQ ACHS Max dose at bedtime:( )units; sugars < 70,(0)units; sugars 150-199,(2)units; sugars 200-249,(4)units; sugars 250-299,(7)units; sugars 300-349,(10)units; sugars more than 349,(12)units. Duoneb (Ipratropium-Albuterol Neb) 0.5-2.5 Mg/3 Ml Neb 1 Nebule INH Q6HR NEB Carvedilol 12.5 Mg Tab 12.5 Mg PO BID Losartan (Losartan Potassium) 25 Mg Tab 25 Mg PO DAILY Lasix (Furosemide) 20 Mg Tab 20 Mg PO DAILY Lantus Inj (Insulin Glargine) 1,000 Unit/10 Ml Vial 40 Units SQ DAILY Famotidine 20 Mg Tab 20 Mg PO HS Docusate Sodium 100 Mg Cap 100 Mg PO HS Atorvastatin (Atorvastatin Calcium) 40 Mg Tab 40 Mg PO HS Aspirin Low Dose (Aspirin) 81 Mg Chew 81 Mg CHEW DAILY Amlodipine (Amlodipine Besylate) 2.5 Mg Tab 2.5 Mg PO DAILY Current Medications Medications (Trade) Dose Ordered Sig/Celi Route Start Time Stop Time Status Last Admin (NS Flush) 2 ml UNSCH PRN IV FLUSH 07/30/17 00:15 07/30/17 16:52 (NS Flush) 2 ml BID IV FLUSH 07/30/17 09:00 08/02/17 08:52 (Narcan Inj) 0.4 mg UNSCH PRN IV 07/30/17 00:15 (Duoneb Neb) 1 ampule Q6HR NEB NEB 07/30/17 04:00 08/02/17 09:52 (Duoneb Neb) 1 ampule Q2HR NEB PRN NEB 07/30/17 00:15 (Lasix Inj) 40 mg BID@09,18 IV PUSH 07/30/17 18:00 08/02/17 08:51 Ceftriaxone Sodium 1000 mg/ Sodium Chloride 100 ml @ 200 mls/hr Q24H IV 07/30/17 22:00 08/01/17 20:35 (NovoLOG SUPPLEMENTAL SCALE) 1 ACHS SLIDING SCALE SQ 07/30/17 16:00 08/02/17 08:00 (D50w (Vial) Inj) 50 ml UNSCH PRN IV 07/30/17 13:45 (Glucagon Inj) 1 mg UNSCH PRN OTHER 07/30/17 13:45 (Tylenol) 500 mg Q4H PRN PO 07/30/17 16:15 08/01/17 14:42 (Zithromax) 500 mg DAILY PO 07/31/17 09:00 08/02/17 08:52 Potassium Chloride/Sodium Chloride 1,000 ml @ 42 mls/hr [id number] IV 08/01/17 16:15 08/02/17 16:03 08/01/17 17:42 (SoluMEDROL INJ) 40 mg BID IV 08/01/17 21:00 08/03/17 20:59 08/02/17 08:51 Family History Mother at age 84 of dementia. Father at age 70 of cancer. She has one son, Den. She has been . Substance Use Tobacco: A lifetime nonsmoker. Alcohol: No use of alcohol. Prescription med abuse: No prescription drug abuse. Illicits: No illicit drug use. Psychosocial History She was born in [place] and moved to [place] as a child where she completed high school and her , Levi. They had one son, Den. 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 Spiritual/Cultural Factors She states she has her own spiritual believes and does not want bed bug exterminator visits. Living Will: Never completed Health Care Surrogate: Never completed Durable Power of Molded Candles Wicker: Copy in medical record Health Care Surrogate(s): Her son, Den, is her healthcare proxy. She is and has no other children. Documented care wishes: She wishes to be comfortable until she passes and has designated her CODE STATUS as DNR Today's verbally stated goals: Patient wishes for comfort focused goals. Physical Exam Vital Signs Date Time Temp Pulse Resp B/P (MAP) Pulse Ox O2 Delivery O2 Flow Rate FiO2 08/02/17 10:05 94 Non-Rebreather 15.00 08/02/17 05:57 Venturi Mask 50 08/02/17 04:56 94 BiPAP 45 08/02/17 04:51 94 45 08/02/17 04:00 97.8 67 18 151/69 (96) 97 08/02/17 04:00 Bi-Pap 45 08/02/17 04:00 79 08/02/17 00:00 Bi-Pap 45 08/02/17 00:00 63 08/02/17 00:00 98.3 68 16 165/81 (109) 91 08/01/17 23:02 93 40 08/01/17 20:00 Venturi Mask 50 08/01/17 20:00 68 08/01/17 20:00 98.4 55 22 157/76 (103) 86 08/01/17 18:00 67 08/01/17 17:00 60 08/01/17 16:34 95 Non-Rebreather 15.00 08/01/17 16:30 95 Non-Rebreather 15.00 08/01/17 16:07 19 08/01/17 16:07 90 Venturi Mask 6.00 08/01/17 16:00 76 08/01/17 15:00 101.5 63 17 154/74 (100) 85 08/01/17 15:00 63 08/01/17 14:01 64 08/01/17 13:00 61 Exam CONSTITUTIONAL/GENERAL: This is an adequately nourished patient, in no apparent distress. TUBES/LINES/DRAINS: 22-gauge PIV RFA SKIN: No jaundice, rashes, or lesions. No wounds seen anteriorly. Skin temperature appropriate. Not diaphoretic. HEAD: Atraumatic. Normocephalic. EYES: Eyes move from side to side on a fairly constant basis throughout the conversation. Pupils equal ENT: Hearing grossly normal. Nose without bleeding or purulent drainage. Throat without visible erythema, exudates, masses, or lesions. NECK: Trachea midline. Supple, nontender. No palpable thyroid enlargement or nodularity. CARDIOVASCULAR: Regular rate and rhythm without murmurs, gallops, or rubs. No JVD. Peripheral pulses symmetric. RESPIRATORY/CHEST: Symmetric, diminished, unlabored respirations. Occasional wheeze. GASTROINTESTINAL: Abdomen soft, non-tender, nondistended. No hepato-splenomegaly , or palpable masses. No guarding. Bowel sounds present. GENITOURINARY: Without palpable bladder distension. Velasquez catheter in place. MUSCULOSKELETAL: Extremities without clubbing, cyanosis, or edema. No joint tenderness or effusion noted. No calf tenderness. No mottling or clubbing. LYMPHATICS: No palpable cervical or supraclavicular adenopathy. NEUROLOGICAL: Awake and alert. Motor and sensory grossly within normal limits. Follows commands. Thought process is slightly slow. Moves all extremities. PSYCHIATRIC: No obvious anxiety/depression. no apparent hallucinations or other psychotic thought process. Diagnostic Tests Laboratory Laboratory Tests Test 07/31/17 05:30 08/01/17 05:40 08/02/17 06:42 White Blood Count 19.8 TH/MM3 (4.0-11.0) 21.2 TH/MM3 (4.0-11.0) 12.9 TH/MM3 (4.0-11.0) Red Blood Count 3.40 MIL/MM3 (4.00-5.30) 3.27 MIL/MM3 (4.00-5.30) 3.70 MIL/MM3 (4.00-5.30) Hemoglobin 10.2 GM/DL (11.6-15.3) 9.9 GM/DL (11.6-15.3) 11.1 GM/DL (11.6-15.3) Hematocrit 30.5 % (35.0-46.0) 29.4 % (35.0-46.0) 33.4 % (35.0-46.0) Mean Corpuscular Volume 89.8 FL (80.0-100.0) 89.7 FL (80.0-100.0) 90.3 FL (80.0-100.0) Mean Corpuscular Hemoglobin 30.0 PG (27.0-34.0) 30.1 PG (27.0-34.0) 29.9 PG (27.0-34.0) Mean Corpuscular Hemoglobin Concent 33.5 % (32.0-36.0) 33.6 % (32.0-36.0) 33.1 % (32.0-36.0) Red Cell Distribution Width 14.3 % (11.6-17.2) 14.4 % (11.6-17.2) 14.4 % (11.6-17.2) Platelet Count 159 TH/MM3 (150-450) 164 TH/MM3 (150-450) 167 TH/MM3 (150-450) Mean Platelet Volume 8.6 FL (7.0-11.0) 8.7 FL (7.0-11.0) 8.7 FL (7.0-11.0) Neutrophils (%) (Auto) 93.7 % (16.0-70.0) 93.3 % (16.0-70.0) 95.4 % (16.0-70.0) Lymphocytes (%) (Auto) 2.7 % (9.0-44.0) 3.4 % (9.0-44.0) 3.6 % (9.0-44.0) Monocytes (%) (Auto) 3.5 % (0.0-8.0) 2.5 % (0.0-8.0) 0.8 % (0.0-8.0) Eosinophils (%) (Auto) 0.0 % (0.0-4.0) 0.7 % (0.0-4.0) 0.1 % (0.0-4.0) Basophils (%) (Auto) 0.1 % (0.0-2.0) 0.1 % (0.0-2.0) 0.1 % (0.0-2.0) Neutrophils # (Auto) 18.5 TH/MM3 (1.8-7.7) 19.8 TH/MM3 (1.8-7.7) 12.3 TH/MM3 (1.8-7.7) Lymphocytes # (Auto) 0.5 TH/MM3 (1.0-4.8) 0.7 TH/MM3 (1.0-4.8) 0.5 TH/MM3 (1.0-4.8) Monocytes # (Auto) 0.7 TH/MM3 (0-0.9) 0.5 TH/MM3 (0-0.9) 0.1 TH/MM3 (0-0.9) Eosinophils # (Auto) 0.0 TH/MM3 (0-0.4) 0.1 TH/MM3 (0-0.4) 0.0 TH/MM3 (0-0.4) Basophils # (Auto) 0.0 TH/MM3 (0-0.2) 0.0 TH/MM3 (0-0.2) 0.0 TH/MM3 (0-0.2) CBC Comment DIFF FINAL DIFF FINAL DIFF FINAL Differential Comment Blood Urea Nitrogen 42 MG/DL (7-18) 52 MG/DL (7-18) 55 MG/DL (7-18) Creatinine 2.03 MG/DL (0.50-1.00) 2.01 MG/DL (0.50-1.00) 1.86 MG/DL (0.50-1.00) Random Glucose 303 MG/DL (74-106) 128 MG/DL (74-106) 377 MG/DL (74-106) Calcium Level 8.2 MG/DL (8.5-10.1) 8.4 MG/DL (8.5-10.1) 8.9 MG/DL (8.5-10.1) Sodium Level 138 MEQ/L (136-145) 143 MEQ/L (136-145) 141 MEQ/L (136-145) Potassium Level 3.6 MEQ/L (3.5-5.1) 3.5 MEQ/L (3.5-5.1) 4.1 MEQ/L (3.5-5.1) Chloride Level 103 MEQ/L (98-107) 107 MEQ/L (98-107) 104 MEQ/L (98-107) Carbon Dioxide Level 26.5 MEQ/L (21.0-32.0) 26.3 MEQ/L (21.0-32.0) 25.0 MEQ/L (21.0-32.0) Anion Gap 9 MEQ/L (5-15) 10 MEQ/L (5-15) 12 MEQ/L (5-15) Estimat Glomerular Filtration Rate 24 ML/MIN (>89) 24 ML/MIN (>89) 27 ML/MIN (>89) Result Diagram: 08/02/17 0642 08/02/17 0642 Microbiology Microbiology Date/Time Source Procedure Growth Status 08/01/17 23:20 Blood Peripheral Aerobic Blood Culture Pending Received 08/01/17 23:20 Blood Peripheral Anaerobic Blood Culture Pending Received 08/01/17 23:15 Blood Peripheral Aerobic Blood Culture Pending Received 08/01/17 23:15 Blood Peripheral Anaerobic Blood Culture Pending Received Imaging Last Impressions Chest CT 08/01/17 1916 Signed Impressions: Service Date/Time: July 21:11 - CONCLUSION: Right perihilar and bibasilar pneumonia. Micheal Oliva MD Renal Ultrasound 08/01/17 0000 Signed Impressions: Service Date/Time: , August 01, 2017 19:59 - CONCLUSION: No acute abnormality demonstrated. Benign-appearing bilateral renal cysts. Micheal Oliva MD Chest X-Ray 08/01/17 0000 Signed Impressions: Service Date/Time: July 11:13 - CONCLUSION: 1. Bibasilar infiltrates consistent with atelectasis and/or pneumonia. Clinical correlation is recommended. Jack Todd MD Patient/Family Conference Present at Family Conference: There was no family at bedside during my interview with the patient. Family Conference Location: Bedside Issues Discussed: * Palliative care role, purpose, approach * Additional medical, psychosocial, and spiritual history * Patients general health, functional status, and cognitive changes in the months leading up to the current hospitalization * Patient/family understanding of the current medical problems * Patient/family understanding of prognosis * Patients goals of care as best understood from advance directives and/or conversations and/or values * Current medical treatment options and benefits/burdens of those options * Likely scenarios comparing ongoing aggressive care with a transition to comfort measures only * Questions answered to the best of my ability * Palliative care contact information provided Assessment and Plan Disease Oriented Problem List: (1) Hyperlipemia (2) Hypertension (3) Acute renal failure (4) Hypoglycemia (5) UTI (urinary tract infection) (6) CHF exacerbation (7) Chronic systolic CHF (congestive heart failure) (8) Pneumonia Symptom Scale: (1) Confusion 0-10 Scale: Unable to quantify (2) Anorexia 0-10 Scale: Unable to quantify (3) Cough 0-10 Scale: Unable to quantify (4) Dyspnea and respiratory abnormalities 0-10 Scale: Unable to quantify Pertinent Non-Medical Issues Psychosocial: She was born in [place] and moved to [place] as a child where she completed high school and her , Levi. They had one son, Den. 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 Spiritual: Has her own spiritual beliefs, declines bed bug exterminator. Legal: Her son, Den, is her legal proxy. Ethical issues impacting care: None noted. Important Contacts Son - Julio C Ramírez Prognosis This is a 72-year-old female with multiple comorbidities to include uncontrolled diabetes mellitus, coronary artery disease, congestive heart failure, dementia, blindness, chronic kidney disease and recurrent pneumonia. She resides in a [facility] facility secondary to her blindness and inability to care for herself. She is at elevated risk for recurrent hospitalizations due to her uncontrolled diabetes, dementia, heart failure and history of pneumonia. Her prognosis is poor. Code Status: No Code Plan PLAN: Legal decision maker: SonJulio C Goals: She states her goals to be comfort oriented. CODE STATUS: DNR SYMPTOMS: * Cough - cough during exam has been dry and nonproductive. She is receiving duo nebs, ceftriaxone, Zithromax and Solu-Medrol for pneumonia. Would recommend the addition of guaifenesin to facilitate comfort. * Dyspnea - she is currently on 100% nonrebreather but has required CPAP and BiPAP during her hospitalization. Would recommend swallow evaluation to rule out aspiration. * Anorexia - states she is feeling better but had no appetite at [facility]. Monitor intake and output. * Confusion - alert and oriented today. Has difficulty collecting her thoughts. Confusion on admission likely related to the acute process of hypoxia , hypoglycemia and infection. Summary: This is a 72-year-old female admitted with severe hypoglycemia, found to have pneumonia and lactobacillus UTI. She is receiving oxygen, steroids and antibiotics and is slowly improving. Her symptoms are improving and her mentation is clearing at this time. Her goals are comfort related and her son, Den, is her healthcare proxy. She has discussed her wishes with him including comfort and cremation once she passes. Palliative care will continue to follow the patient during hospital course as condition evolves, to assist patient/decision-maker with understanding of their medical conditions, weighing benefits/burdens of treatment options, for clarification of goals of treatment. Additionally will assist with any symptoms of palliative concern Time Spent >50% Counseling/Coord of Care: Yes Thank you for the opportunity to participate in the care of Ms. Ramírez. Attestation To help prompt me to consider important information that might be impacting today's encounter and assessment, information from prior notes written by myself or my colleagues may have been "brought forward" into today's note. My signature on this note, however, is an attestation that I personally performed the exam, history, and/or decision-making noted today, and, unless otherwise indicated, the interactions with patient, family, and staff as well as the review of records all occurred today. I also attest that the listed assessment and stated plan reflect my best clinical judgment today based on the combination of historical information, prior notes, and today's exam/ interactions. When time spent is documented, it refers only to time spent today by the signer, or if indicated, combined time spent today by collaborating physician/nurse practitioner. Kimmy Khalil Aug 02, 2017 12:54
[2017-08-02] MEDS: INSULIN DETEMIR 100 UNITS/ML VIAL SQ SCH ×2 (13:45→20:43)
--- NOTE | 2017-08-02 19:41 | HHI.PR ---
Subjective Remarks Alert and Still on a NRB mask. Sats 99. Cough persists. CT shows basal infiltrates. No fever Objective Vital Signs Date Time Temp Pulse Resp B/P (MAP) Pulse Ox O2 Delivery O2 Flow Rate FiO2 08/02/17 19:24 71 20 122/70 (87) 94 08/02/17 15:30 92 Partial Rebreather 15.00 08/02/17 13:31 95 Partial Rebreather 8.00 08/02/17 10:05 94 Non-Rebreather 15.00 08/02/17 05:57 Venturi Mask 50 08/02/17 04:56 94 BiPAP 45 08/02/17 04:51 94 45 08/02/17 04:00 97.8 67 18 151/69 (96) 97 08/02/17 04:00 Bi-Pap 45 08/02/17 04:00 79 08/02/17 00:00 Bi-Pap 45 08/02/17 00:00 63 08/02/17 00:00 98.3 68 16 165/81 (109) 91 08/01/17 23:02 93 40 08/01/17 20:00 Venturi Mask 50 08/01/17 20:00 68 08/01/17 20:00 98.4 55 22 157/76 (103) 86 I/O 08/01/17 08/01/17 08/01/17 08/02/17 08/02/17 08/02/17 07:00 15:00 23:00 07:00 15:00 23:00 Intake Total 240 ml 240 ml 669 ml Output Total 850 ml 850 ml 600 ml Balance -610 ml -610 ml 69 ml Intake Oral 240 ml 240 ml 240 ml IV Total 429 ml Output Urine Total 850 ml 850 ml 600 ml # Bowel Movements 0 Result Diagram: 08/02/17 0642 08/02/17 0642 Objective Remarks GENERAL: This is a well-nourished, well-developed patient, in no mild distress. CARDIOVASCULAR: IRRegular rate and rhythm without murmurs, gallops, or rubs. RESPIRATORY: Diffuse expiratory wheezes, diminish breath sounds bilaterally. Basal crackles GASTROINTESTINAL: Abdomen soft, non-tender,nondistended. Normal active bowel sounds MUSCULOSKELETAL: Extremities without clubbing, cyanosis,but has 1 +edema. NEURO: Alert & Oriented. Moves all ext x4 Assessment and Plan Assessment and Plan Assessment and Plan Disease Oriented Problem List: (1) Hyperlipemia (2) Hypertension (3) Acute renal failure (4) Hypoglycemia (5) UTI (urinary tract infection) (6) CHF exacerbation (7) Chronic systolic CHF (congestive heart failure) (8) Pneumonia, Aspiration Symptom Scale: (1) Confusion 0-10 Scale: Unable to quantify (2) Anorexia 0-10 Scale: Unable to quantify (3) Cough 0-10 Scale: Unable to quantify (4) Dyspnea and respiratory abnormalities Plan : 1. Continue Rocephin 1 GM IV daily. 2. Zithromax 500 mg IV daily. 3. lasix 40 mg IV BID. 4. Chest X ray in am 5. Nebs qid , Duoneb. 6. BiPAP at HS if she tolerates it. 7. Wean O2 to N/c 5L Rohan Gates MD Aug 02, 2017 19:41
[2017-08-02] MEDS: cefTRIAXone INJ 1,000 MG in SODIUM CHLORIDE 0.9% INJ 100 ML IV SCH (20:43)
[2017-08-02] MEDS: BUDESONIDE-FORMOTEROL 160/4.5 MCG INHALER INH SCH (20:44)
[2017-08-03] VITALS (23 sets, daily range): BP systolic 164–182; BP diastolic 83–96; PULSE 60–90; RESP 20–24; TEMP 97.7–98.8; O2SAT 92–99
--- NOTE | 2017-08-03 00:38 | MB ---
cc: Rohan GATES M.D. DATE OF CONSULTATION 08/01/17 REASON FOR CONSULTATION Respiratory distress and pneumonia. HISTORY OF PRESENT ILLNESS This is a 72-year-old white female who was admitted through the emergency room with altered mental status and unresponsiveness, was found to have a blood sugars in the 20s range. The patient was brought by [facility]. She had to be given IV dextrose and she then became more responsive and apparently a chest x-ray showed evidence of bibasilar infiltrates. The patient was initially placed on BiPap and subsequently switched to a non-rebreather mask and presently she is awake, talking and seems to be appropriate. She has a cough. She brings up a little thick whitish-yellow mucus but denies any fevers, chills. Denied nausea, vomiting but there is a suspicion of aspiration since she was poorly responsive. There is no history of abdominal pains or chest pains. PAST HISTORY Has included history of CHF, history of hypertension, history of diabetes mellitus type 2, history of chronic kidney disease. The patient also has dementia and visual problems. PAST SURGICAL HISTORY Surgery includes CABG x2 and permanent pacemaker placement, eye surgery. MEDICATIONS List included: 1. Humalog insulin subcu q.i.d. 2. DuoNeb nebs q.i.d. 3. Losartan 25 milligrams daily. 4. Lasix 20 milligrams daily. 5. Lantus insulin 40 units subcu daily. 6. Famotidine 20 milligrams a day. 7. Atorvastatin 40 milligrams h.s. 8. Amlodipine 2.5 milligrams a day. HABITS The patient denies smoking. No history of alcohol use. ALLERGIES No drug allergies listed. FAMILY HISTORY Essentially noncontributory, unavailable. REVIEW OF SYSTEMS Patient is a poor historian. Denies chest pains. She has had some leg swelling. She has dizziness. She has blurriness of vision. Denies any nausea, vomiting or GI bleed. No urinary symptoms or flank pains. She has no depression or anxiety. She has had memory loss. PHYSICAL EXAMINATION GENERAL: This moderately obese elderly lady who is lying flat. She is on a non-rebreather mask. VITAL SIGNS: Blood pressure 130/80, pulse is 76, respirations 16, temperature 99.2. HEENT: Head normocephalic. Pupils are reactive and equal. Tongue is dry. Throat is injected. Nasal mucosa is clear. NECK: Supple with mild venous distension. Trachea midline. No thyroid enlargement or lymphadenopathy. CHEST: Equal movements with bibasilar crackles with expiratory wheezes in the right lung field. HEART: The heart sounds were regular S1-S2. No murmur. No S3. ABDOMEN: Soft, obese without masses. No organomegaly or tenderness. Bowel sounds are active. EXTREMITIES: Mild varicosities and minimal edema, decreased pulses. Reflexes are 1+ with no gross motor deficits. 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 SKIN: Skin was cool and dry. IMPRESSION 1. Altered mental status with hypoglycemia. 2. Possible sepsis. 3. Basilar pneumonia with possible aspiration. 4. CHF, chronic systolic. 5. Acute kidney injury. 6. Diabetes mellitus type 2. PLAN The patient will be placed on a Ventimask at 50%. We could also place her on BiPap at nights to maintain sats over 92. She has been started on antibiotic coverage including Zithromax 500 milligrams p.o. daily and Rocephin 1 gram IV daily which we will continue and sputum will be sent for Gram stain and culture. Diuretic therapy including Lasix 40 milligrams b.i.d. for pulmonary edema and the patient will also be placed on DuoNeb solution with a nebulizer q.i.d. CT scan of the chest was ordered. The patient will also be placed on Symbicort 160/4.51 2 puffs twice a day for the wheezing and a pulmonary function study done when she is clinically stable. Thank you Dr. Vazquez for this consultation. Micheal Gates MD JOMAR/BRANDON /7:30 PM /12:20 AM
--- NOTE | 2017-08-03 05:35 | RADRPT ---
EXAM DATE/TIME: 08/03/2017 05:21 [facility] COMPARISON: CHEST SINGLE AP, August 01, 2017, 11:13. INDICATIONS : Infiltrate. MEDICAL HISTORY : Cardiovascular disease. SURGICAL HISTORY : CABG. Pacemaker. ENCOUNTER: Subsequent ACUITY: 4 - 6 days PAIN SCORE: Non-responsive. LOCATION: Bilateral chest FINDINGS: A single view of the chest demonstrates the lungs to be symmetrically aerated with persistent bibasil ar atelectatic changes and associated left-sided effusion. No significant interval change. Median toni rnotomy wires. The most cephalad wire is fractured. Left subclavian bipolar pacer is radiographically intact. Accounting for low lung lines normal heart size is upper limits of normal. Osseous structure s are intact. CONCLUSION: 1. Hypoinflation with bibasilar atelectatic changes. Associated effusion on the left. 2. Slight improved aeration right base. Left base is stable. James Cross MD on August 03, 2017 at 5:32 Board Certified Radiologist. This report was verified electronically.
[2017-08-03] MEDS: INSULIN DETEMIR 100 UNITS/ML VIAL SQ SCH ×2 (09:00→21:59)
[2017-08-03] MEDS: BUDESONIDE-FORMOTEROL 160/4.5 MCG INHALER INH SCH ×2 (09:00→21:00)
[2017-08-03] MEDS ORDERED: guaiFENesin SOLUTION 200 MG/10 ML CUP PO PRN (09:00)
--- NOTE | 2017-08-03 09:03 | HHI.PR ---
Subjective Remarks in no acute distress. has occasional dry cough. no fever. denies pain. Objective Vitals Vital Signs Date Time Temp Pulse Resp B/P (MAP) Pulse Ox O2 Delivery O2 Flow Rate FiO2 08/03/17 07:48 72 08/03/17 05:28 97 60 08/03/17 03:04 98.0 74 20 182/96 (124) 93 08/03/17 03:00 66 08/03/17 01:00 78 08/03/17 00:59 95 BiPAP 60 08/03/17 00:59 95 60 08/03/17 00:00 85 08/02/17 23:00 78 08/02/17 22:57 98.2 79 20 160/88 (112) 97 08/02/17 22:00 70 08/02/17 21:00 66 08/02/17 20:00 75 08/02/17 20:00 88 Venturi Mask 50 08/02/17 19:37 98.0 69 20 171/87 (115) 94 08/02/17 19:24 71 20 122/70 (87) 94 08/02/17 19:00 66 08/02/17 15:30 92 Partial Rebreather 15.00 08/02/17 13:31 95 Partial Rebreather 8.00 08/02/17 12:00 98.3 67 20 164/85 (111) 94 08/02/17 10:05 94 Non-Rebreather 15.00 I/O 08/02/17 08/02/17 08/02/17 08/03/17 08/03/17 08/03/17 07:00 15:00 23:00 07:00 15:00 23:00 Intake Total 669 ml 240 ml Output Total 600 ml 600 ml Balance 69 ml -360 ml Intake Oral 240 ml 240 ml IV Total 429 ml Output Urine Total 600 ml 600 ml # Bowel Movements 0 0 Result Diagram: 08/02/1742 08/02/1742 Imaging Last Impressions Chest X-Ray 08/03/17 06 Signed Impressions: Service Date/Time: Thursday, August 03, 2017 05:21 - CONCLUSION: 1. Hypoinflation with bibasilar atelectatic changes. Associated effusion on the left. 2. Slight improved aeration right base. Left base is stable. James Cross MD Chest CT 08/01/17 1916 Signed Impressions: Service Date/Time: July 21:11 - CONCLUSION: Right perihilar and bibasilar pneumonia. Micheal Oliva MD Renal Ultrasound 08/01/17 0000 Signed Impressions: Service Date/Time: July 19:59 - CONCLUSION: No acute abnormality demonstrated. Benign-appearing bilateral renal cysts. Micheal Oliva MD Objective Remarks GENERAL: This is a well-nourished, well-developed patient, in no apparent distress. CARDIOVASCULAR: Regular rate and regular rhythm without murmurs, gallops, or rubs. RESPIRATORY: diminished air entry in bases. GASTROINTESTINAL: Abdomen soft, non-tender, nondistended. Normal, active bowel sounds MUSCULOSKELETAL: Extremities without clubbing, cyanosis, or edema. NEURO: Alert & Oriented x4 to person, place, time, situation. Moves all ext x4 Procedures None Medications and IVs Current Medications Dextrose (D50w (Vial) Inj) 50 ml UNSCH PRN IV HYPOGLYCEMIA-SEE COMMENTS; Start 07/29/17 at 22:30; Stop 07/30/17 at 00:16; Status DC Dextrose/Sodium Chloride 1,000 ml @ 75 mls/hr [id number] IV Last administered on 07/29/17 22:42; Start 07/29/17 at 22:16; Stop 07/30/17 at 00:17; Status DC Furosemide (Lasix Inj) 40 mg ONCE ONCE IV PUSH Last administered on 07/29/17 22:45; Start 07/29/17 at 22:30; Stop 07/29/17 at 22:31; Status DC Sodium Chloride (NS Flush) 2 ml UNSCH PRN IVF FLUSH AFTER USING IV ACCESS; Start 07/29/17 at 22:30; Stop 07/30/17 at 00:17; Status DC Methylprednisolone Sodium Succinate (SoluMEDROL INJ) 125 mg ONCE ONCE IVP Last administered on 07/29/17 22:43; Start 07/29/17 at 22:30; Stop 07/29/17 at 22:31; Status DC Albuterol/ Ipratropium (Duoneb Neb) 1 ampule Q15M INH Last administered on 07/29 22:59; Start 07/29/17 at 22:30; Stop 07/29/17 at 23:01; Status DC Dextrose (D50w (Syr) Inj) 50 ml STK-MED ONCE .ROUTE Last administered on 23:06; Start 07/29/17 at 23:05; Stop 07/29/17 at 23:06; Status DC Ceftriaxone Sodium 1000 mg/ Sodium Chloride 100 ml @ 200 mls/hr ONCE ONCE IV Last administered on 07/30/17 00:01; Start 07/30/17 at 00:00; Stop 07/30/17 at 00:29; Status DC Azithromycin 500 mg/Sodium Chloride 250 ml @ 250 mls/hr ONCE ONCE IV Last administered on 07/30/17 00:39; Start 07/30/17 at 00:00; Stop 07/30/17 at 00:59 ; Status DC Sodium Chloride (NS Flush) 2 ml UNSCH PRN IV FLUSH FLUSH AFTER USING IV ACCESS Last administered on 07/30/17 16:52; Start 07/30/17 at 00:15 Sodium Chloride (NS Flush) 2 ml BID IV FLUSH Last administered on 08/02/17 20: 44; Start 07/30/17 at 09:00 Naloxone HCl (Narcan Inj) 0.4 mg UNSCH PRN IV SEE LABEL COMMENTS; Start at 00:15 Dextrose (D50w (Vial) Inj) 50 ml UNSCH PRN IV HYPOGLYCEMIA-SEE COMMENTS; Start 07/30/17 at 00:15; Stop 07/30/17 at 13:43; Status DC Glucagon (Glucagon Inj) 1 mg UNSCH PRN OTHER HYPOGLYCEMIA-SEE COMMENTS; Start 07/30/17 at 00:15; Stop 07/30/17 at 13:43; Status DC Albuterol/ Ipratropium (Duoneb Neb) 1 ampule Q6HR NEB NEB Last administered on 08/02/17 21:01; Start 07/30/17 at 04:00; Stop 08/03/17 at 03:59; Status DC Albuterol/ Ipratropium (Duoneb Neb) 1 ampule Q2HR NEB PRN NEB wheezing; Start 07/30/17 at 00:15 Dextrose 500 ml @ 42 mls/hr [id number] IV Last administered on 07/30/17 01:00; Start 07/30/17 at 00:30; Stop 07/30/17 at 13:43; Status DC Furosemide (Lasix Inj) 40 mg BID@09,18 IV PUSH Last administered on 08/02/17 18:28; Start 07/30/17 at 18:00 Furosemide (Lasix Inj) 40 mg ONCE ONCE IV PUSH Last administered on 07/30/17 12:15; Start 07/30/17 at 11:15; Stop 07/30/17 at 11:16; Status DC Ceftriaxone Sodium 1000 mg/ Sodium Chloride 100 ml @ 200 mls/hr Q24H IV Last administered on 08/02/17 20:43; Start 07/30/17 at 22:00 Insulin Aspart (NovoLOG SUPPLEMENTAL SCALE) 1 ACHS SLIDING SCALE SQ Last administered on 08/02/17 21:11; Start 07/30/17 at 16:00 Dextrose (D50w (Vial) Inj) 50 ml UNSCH PRN IV HYPOGLYCEMIA-SEE COMMENTS; Start 07/30/17 at 13:45 Glucagon (Glucagon Inj) 1 mg UNSCH PRN OTHER HYPOGLYCEMIA-SEE COMMENTS; Start 07/30/17 at 13:45 Dextrose/Sodium Chloride 1,000 ml @ 40 mls/hr Q24H IV Last administered on 13:45; Start 07/30/17 at 13:45; Stop 07/30/17 at 21:47; Status DC Acetaminophen (Tylenol) 500 mg Q4H PRN PO FEVER Last administered on 08/01/17 14:42; Start 07/30/17 at 16:15 Azithromycin (Zithromax) 500 mg DAILY PO Last administered on 08/02/17 08:52; Start 07/31/17 at 09:00 Potassium Chloride/Sodium Chloride 1,000 ml @ 42 mls/hr [id number] IV Last administered on 07/31/17 10:35; Start 07/31/17 at 09:45; Stop 08/01/17 at 09:33 ; Status DC Potassium Chloride/Sodium Chloride 1,000 ml @ 42 mls/hr [id number] IV Last administered on 08/01/17 17:42; Start 08/01/17 at 16:15; Stop 08/02/17 at 16:03 ; Status DC Methylprednisolone Sodium Succinate (SoluMEDROL INJ) 40 mg BID IV Last administered on 08/02/17 20:44; Start 08/01/17 at 21:00; Stop 08/03/17 at 20:59 Insulin Detemir (Levemir Inj) 5 units BID SQ Last administered on 08/02/17 20: 43; Start 08/02/17 at 13:45 Budesonide/ Formoterol Fumarate (Symbicort 160-4.5 Inh) 2 puff Q12HR INH Last administered on 08/02/17 20:44; Start 08/02/17 at 21:00 A/P Assessment and Plan A/P 1. Unresponsiveness: Secondary to severe hypoglycemia. Glucose has improved. Continue sliding scale insulin coverage. 2. Acute exacerbation of chronic systolic congestive heart failure: Continue diuresis with Lasix. Caution with IV fluids. 3. diabetes mellitus; uncontrolled now- will increase levemir and continue with accu-checks. 4. renal insufficiency with unknown duration- likely chronic- will monitor renal function- nephrology following. 5. DVT prophylaxis:lovenox 6. Leukocytosis: WBCs improving. Likely secondary to pneumonia. Continue antibiotics. 7. CODE STATUS: DO NOT RESUSCITATE. 8. Palliative care consult appreciated. 9. Pneumonia: Continue antibiotics, oxygen. Appreciate pulmonology recommendations.ST consulted for swallow evaluation. Arya Garcia MD Aug 03, 2017 09:03
[2017-08-03] MEDS: AZITHROMYCIN 250 MG TAB PO SCH (09:17)
[2017-08-03] MEDS: methylPREDNISolone SOD SUCC 40 MG/1 ML VIAL IV SCH (09:17)
[2017-08-03] MEDS: FUROSEMIDE 40 MG/4 ML VIAL IV PUSH SCH ×2 (09:17→17:36)
[2017-08-03] MEDS: SODIUM CHLORIDE 0.9% FLUSH 10 ML FLUSH IV FLUSH SCH ×2 (09:24→21:58)
[2017-08-03] MEDS: INSULIN ASPART SUPPLEMENTAL SCALE SQ SCH ×4 (09:27→22:10)
[2017-08-03] MEDS: ENOXAPARIN SODIUM 30 MG/0.3 ML SYRINGE SQ SCH (10:08)
[2017-08-03] MEDS: RESP: ALBUTEROL 2.5 MG/IPRATROPIUM 0.5 MG NEB (SCH) INH (20:32)
[2017-08-03] MEDS: cefTRIAXone INJ 1,000 MG in SODIUM CHLORIDE 0.9% INJ 100 ML IV SCH (21:57)
[2017-08-03] MEDS ORDERED: cloNIDine HCL 0.1 MG TAB PO PRN (23:15)
[2017-08-04] VITALS (31 sets, daily range): BP systolic 111–186; BP diastolic 62–99; PULSE 60–76; RESP 18–22; TEMP 96.9–98.9; O2SAT 90–100
[2017-08-04] MEDS: methylPREDNISolone SOD SUCC 40 MG/1 ML VIAL IV SCH ×2 (06:39→08:27)
[2017-08-04 07:11] LABS: AUTOMATED NEUTROPHIL # 15.1 TH/MM3 (1.8-7.7); BASOPHIL % 0.1 % (0.0-2.0); HEMATOCRIT 35.2 % (35.0-46.0); HEMO FLAGS DIFF FINAL; LYMPH % 4.7 % (9.0-44.0); LYMPHOCYTE # 0.8 TH/MM3 (1.0-4.8); MEAN CELL VOLUME 90.7 FL (80.0-100.0); MEAN CORPUSCULAR HGB CONC 33.1 % (32.0-36.0); NEUT % 91.2 % (16.0-70.0); PLATELET COUNT 182 TH/MM3 (150-450); RED BLOOD COUNT 3.88 MIL/MM3 (4.00-5.30); RED CELL DISTRIBUTION WIDTH 14.2 % (11.6-17.2); WHITE BLOOD COUNT 16.5 TH/MM3 (4.0-11.0)
[2017-08-04 07:12] LABS: BICARBONATE 29.5 MEQ/L (21.0-32.0); POTASSIUM 3.6 MEQ/L (3.5-5.1)
[2017-08-04] MEDS: INSULIN ASPART SUPPLEMENTAL SCALE SQ SCH ×3 (08:00→17:00)
[2017-08-04] MEDS: FUROSEMIDE 40 MG/4 ML VIAL IV PUSH SCH ×2 (08:26→18:03)
[2017-08-04] MEDS: AZITHROMYCIN 250 MG TAB PO SCH (08:28)
[2017-08-04] MEDS: SODIUM CHLORIDE 0.9% FLUSH 10 ML FLUSH IV FLUSH SCH ×2 (08:28→22:26)
[2017-08-04] MEDS: INSULIN DETEMIR 100 UNITS/ML VIAL SQ SCH ×3 (08:29→21:00)
[2017-08-04] MEDS: ENOXAPARIN SODIUM 30 MG/0.3 ML SYRINGE SQ SCH (08:29)
[2017-08-04] MEDS ORDERED: DOCUSATE SODIUM 100 MG CAP PO PRN (08:45)
[2017-08-04] MEDS: BUDESONIDE-FORMOTEROL 160/4.5 MCG INHALER INH SCH ×2 (08:49→22:26)
--- NOTE | 2017-08-04 08:56 | HHI.PR ---
Subjective Remarks in no acute distress. still with some cough. afebrile. BP trend noted. d/w the RN. Objective Vitals Vital Signs Date Time Temp Pulse Resp B/P (MAP) Pulse Ox O2 Delivery O2 Flow Rate FiO2 08/04/17 07:55 98.2 74 20 186/87 (120) 92 08/04/17 07:00 177/86 (116) 08/04/17 06:00 60 08/04/17 05:00 66 08/04/17 04:00 64 08/04/17 03:30 98.4 72 22 127/81 (96) 94 08/04/17 03:00 138/99 (112) 08/04/17 03:00 64 08/04/17 02:00 154/80 (104) 08/04/17 02:00 60 08/04/17 01:00 62 08/04/17 00:00 60 08/03/17 23:53 98.8 22 165/83 (110) 95 08/03/17 23:00 72 08/03/17 22:12 75 20 177/86 (116) 98 08/03/17 22:00 72 08/03/17 21:00 98.8 72 22 182/91 (121) 99 08/03/17 21:00 72 08/03/17 20:37 94 Non-Rebreather 15.00 08/03/17 20:00 66 08/03/17 17:00 60 08/03/17 16:00 97.7 76 24 174/90 (118) 97 08/03/17 15:00 60 08/03/17 14:00 60 08/03/17 13:00 64 08/03/17 12:40 98.7 90 22 175/94 (121) 96 08/03/17 11:00 96 Venturi Mask 50 08/03/17 11:00 62 08/03/17 10:44 86 Venturi Mask 50 08/03/17 10:00 66 08/03/17 09:00 66 08/03/17 09:00 98.4 86 20 164/86 (112) 92 I/O 08/03/17 08/03/17 08/03/17 08/04/17 08/04/17 08/04/17 07:00 15:00 23:00 07:00 15:00 23:00 Intake Total 240 ml 800 ml 916 ml Output Total 600 ml 1200 ml 650 ml Balance -360 ml -400 ml 266 ml Intake Oral 240 ml 800 ml 720 ml IV Total 196 ml Output Urine Total 600 ml 1200 ml 650 ml # Voids 3 # Bowel Movements 0 0 Result Diagram: 08/04/17 0607 08/04/17 0607 Imaging Last Impressions Chest X-Ray 08/03/17 0600 Signed Impressions: Service Date/Time: Thursday, August 03, 2017 05:21 - CONCLUSION: 1. Hypoinflation with bibasilar atelectatic changes. Associated effusion on the left. 2. Slight improved aeration right base. Left base is stable. James Cross MD Chest CT 08/01/17 1916 Signed Impressions: Service Date/Time: July 21:11 - CONCLUSION: Right perihilar and bibasilar pneumonia. Micheal Oliva MD Renal Ultrasound 08/01/17 0000 Signed Impressions: Service Date/Time: July 19:59 - CONCLUSION: No acute abnormality demonstrated. Benign-appearing bilateral renal cysts. Micheal Oliva MD Objective Remarks GENERAL: This is a well-nourished, well-developed patient, in no apparent distress. CARDIOVASCULAR: Regular rate and regular rhythm without murmurs, gallops, or rubs. RESPIRATORY: diminished air entry in bases. GASTROINTESTINAL: Abdomen soft, non-tender, nondistended. Normal, active bowel sounds MUSCULOSKELETAL: Extremities without clubbing, cyanosis, or edema. NEURO: Alert & Oriented x4 to person, place, time, situation. Moves all ext x4 Procedures None Medications and IVs Current Medications Dextrose (D50w (Vial) Inj) 50 ml UNSCH PRN IV HYPOGLYCEMIA-SEE COMMENTS; Start 07/29/17 at 22:30; Stop 07/30/17 at 00:16; Status DC Dextrose/Sodium Chloride 1,000 ml @ 75 mls/hr [id number] IV Last administered on 07/29/17 22:42; Start 07/29/17 at 22:16; Stop 07/30/17 at 00:17; Status DC Furosemide (Lasix Inj) 40 mg ONCE ONCE IV PUSH Last administered on 07/29/17 22:45; Start 07/29/17 at 22:30; Stop 07/29/17 at 22:31; Status DC Sodium Chloride (NS Flush) 2 ml UNSCH PRN IVF FLUSH AFTER USING IV ACCESS; Start 07/29/17 at 22:30; Stop 07/30/17 at 00:17; Status DC Methylprednisolone Sodium Succinate (SoluMEDROL INJ) 125 mg ONCE ONCE IVP Last administered on 07/29/17 22:43; Start 07/29/17 at 22:30; Stop 07/29/17 at 22:31; Status DC Albuterol/ Ipratropium (Duoneb Neb) 1 ampule Q15M INH Last administered on 07/29 22:59; Start 07/29/17 at 22:30; Stop 07/29/17 at 23:01; Status DC Dextrose (D50w (Syr) Inj) 50 ml STK-MED ONCE .ROUTE Last administered on 23:06; Start 07/29/17 at 23:05; Stop 07/29/17 at 23:06; Status DC Ceftriaxone Sodium 1000 mg/ Sodium Chloride 100 ml @ 200 mls/hr ONCE ONCE IV Last administered on 07/30/17 00:01; Start 07/30/17 at 00:00; Stop 07/30/17 at 00:29; Status DC Azithromycin 500 mg/Sodium Chloride 250 ml @ 250 mls/hr ONCE ONCE IV Last administered on 07/30/17 00:39; Start 07/30/17 at 00:00; Stop 07/30/17 at 00:59 ; Status DC Sodium Chloride (NS Flush) 2 ml UNSCH PRN IV FLUSH FLUSH AFTER USING IV ACCESS Last administered on 07/30/17 16:52; Start 07/30/17 at 00:15 Sodium Chloride (NS Flush) 2 ml BID IV FLUSH Last administered on 08/04/17 08: 28; Start 07/30/17 at 09:00 Naloxone HCl (Narcan Inj) 0.4 mg UNSCH PRN IV SEE LABEL COMMENTS; Start at 00:15 Dextrose (D50w (Vial) Inj) 50 ml UNSCH PRN IV HYPOGLYCEMIA-SEE COMMENTS; Start 07/30/17 at 00:15; Stop 07/30/17 at 13:43; Status DC Glucagon (Glucagon Inj) 1 mg UNSCH PRN OTHER HYPOGLYCEMIA-SEE COMMENTS; Start 07/30/17 at 00:15; Stop 07/30/17 at 13:43; Status DC Albuterol/ Ipratropium (Duoneb Neb) 1 ampule Q6HR NEB NEB Last administered on 08/02/17 21:01; Start 07/30/17 at 04:00; Stop 08/03/17 at 03:59; Status DC Albuterol/ Ipratropium (Duoneb Neb) 1 ampule Q2HR NEB PRN NEB wheezing; Start 07/30/17 at 00:15 Dextrose 500 ml @ 42 mls/hr [id number] IV Last administered on 07/30/17 01:00; Start 07/30/17 at 00:30; Stop 07/30/17 at 13:43; Status DC Furosemide (Lasix Inj) 40 mg BID@09,18 IV PUSH Last administered on 08/04/17 08:26; Start 07/30/17 at 18:00 Furosemide (Lasix Inj) 40 mg ONCE ONCE IV PUSH Last administered on 07/30/17 12:15; Start 07/30/17 at 11:15; Stop 07/30/17 at 11:16; Status DC Ceftriaxone Sodium 1000 mg/ Sodium Chloride 100 ml @ 200 mls/hr Q24H IV Last administered on 08/03/17 21:57; Start 07/30/17 at 22:00 Insulin Aspart (NovoLOG SUPPLEMENTAL SCALE) 1 ACHS SLIDING SCALE SQ Last administered on 08/04/17 08:00; Start 07/30/17 at 16:00 Dextrose (D50w (Vial) Inj) 50 ml UNSCH PRN IV HYPOGLYCEMIA-SEE COMMENTS; Start 07/30/17 at 13:45 Glucagon (Glucagon Inj) 1 mg UNSCH PRN OTHER HYPOGLYCEMIA-SEE COMMENTS; Start 07/30/17 at 13:45 Dextrose/Sodium Chloride 1,000 ml @ 40 mls/hr Q24H IV Last administered on 13:45; Start 07/30/17 at 13:45; Stop 07/30/17 at 21:47; Status DC Acetaminophen (Tylenol) 500 mg Q4H PRN PO FEVER Last administered on 08/01/17 14:42; Start 07/30/17 at 16:15 Azithromycin (Zithromax) 500 mg DAILY PO Last administered on 08/04/17 08:28; Start 07/31/17 at 09:00 Potassium Chloride/Sodium Chloride 1,000 ml @ 42 mls/hr [id number] IV Last administered on 07/31/17 10:35; Start 07/31/17 at 09:45; Stop 08/01/17 at 09:33 ; Status DC Potassium Chloride/Sodium Chloride 1,000 ml @ 42 mls/hr [id number] IV Last administered on 08/01/17 17:42; Start 08/01/17 at 16:15; Stop 08/02/17 at 16:03 ; Status DC Methylprednisolone Sodium Succinate (SoluMEDROL INJ) 40 mg BID IV Last administered on 08/03/17 09:17; Start 08/01/17 at 21:00; Stop 08/03/17 at 11:56 ; Status DC Insulin Detemir (Levemir Inj) 5 units BID SQ Last administered on 08/03/17 09: 00; Start 08/02/17 at 13:45; Stop 08/03/17 at 09:07; Status DC Budesonide/ Formoterol Fumarate (Symbicort 160-4.5 Inh) 2 puff Q12HR INH Last administered on 08/03/17 09:00; Start 08/02/17 at 21:00 Guaifenesin (Robitussin Liq) 200 mg Q4H PRN PO COUGH; Start 08/03/17 at 09:00 Insulin Detemir (Levemir Inj) 7 units BID SQ Last administered on 08/04/17 08: 29; Start 08/03/17 at 21:00 Enoxaparin Sodium (Lovenox Inj) 30 mg Q24H SQ Last administered on 08/04/17 08 :29; Start 08/03/17 at 10:00 Methylprednisolone Sodium Succinate (SoluMEDROL INJ) 40 mg DAILY IV Last administered on 08/04/17 08:27; Start 08/04/17 at 07:00 Albuterol/ Ipratropium (Duoneb Neb) 1 ampule BID NEB INH Last administered on 08/03/17 20:32; Start 08/03/17 at 20:00 Clonidine (Catapres) 0.1 mg Q6H PRN PO SBP>160, DBP>90 Last administered on t 00:03; Start 08/03/17 at 23:15 A/P Assessment and Plan A/P 1. Unresponsiveness: Secondary to severe hypoglycemia; this has resolved. 2. Acute exacerbation of chronic systolic congestive heart failure: Continue diuresis with Lasix. Caution with IV fluids. will resume Coreg- will restart losartan if renal function stable and ok with nephrology. 3. diabetes mellitus; uncontrolled now- will further increase levemir and continue with accu-checks. the blood sugar level expected to improve as the steroids being tapered off. 4. renal insufficiency with unknown duration- likely chronic- will monitor renal function- nephrology following. 5. Leukocytosis: due to pneumonia and steroids- afebrile- will monitor. 7. CODE STATUS: DO NOT RESUSCITATE. 8. Palliative care consult appreciated. 9. Pneumonia: Continue antibiotics, oxygen. Appreciate pulmonology recommendations.ST consulted for swallow evaluation; started on puree diet. 10.hypertension; uncontrolled; will resume amlodipine and coreg- DVT prophylaxis with subq lovenox. consult PT. Arya Garcia MD Aug 04, 2017 08:56
[2017-08-04] MEDS: RESP: ALBUTEROL 2.5 MG/IPRATROPIUM 0.5 MG NEB (SCH) INH ×2 (08:58→20:06)
[2017-08-04] MEDS: ASPIRIN 81 MG CHEW TAB CHEW SCH (09:09)
[2017-08-04] MEDS: amLODIPine BESYLATE 5 MG TAB PO SCH (09:09)
[2017-08-04] MEDS: CARVEDILOL 6.25 MG TAB PO SCH ×2 (09:09→22:26)
[2017-08-04] MEDS: MEDIUM DOSE INSULIN NOVOLOG SUPPLEMENTAL SCALE SQ SCH ×2 (17:57→21:00)
[2017-08-04] MEDS ORDERED: GLUCAGON 1 MG/ML VIAL OTHER PRN (18:00)
[2017-08-04] MEDS ORDERED: DEXTROSE 50% IN WATER 50 ML VIAL(D50) IV PUSH PRN (18:00)
[2017-08-04] MEDS ORDERED: PLEASE DISCONTINUE PREVIOUS SUPPLEMENTAL SCALE INSULIN ORDERS ONE (18:00)
[2017-08-04] MEDS: cefTRIAXone INJ 1,000 MG in SODIUM CHLORIDE 0.9% INJ 100 ML IV SCH (22:00)
[2017-08-05] VITALS (27 sets, daily range): BP systolic 110–146; BP diastolic 59–91; PULSE 60–80; RESP 14–18; TEMP 97.8–98.7; O2SAT 90–100
[2017-08-05 07:09] LABS: BICARBONATE 29.8 MEQ/L (21.0-32.0); POTASSIUM 3.5 MEQ/L (3.5-5.1)
[2017-08-05] MEDS: MEDIUM DOSE INSULIN NOVOLOG SUPPLEMENTAL SCALE SQ SCH ×4 (08:00→21:00)
[2017-08-05] MEDS: RESP: ALBUTEROL 2.5 MG/IPRATROPIUM 0.5 MG NEB (SCH) INH ×2 (08:35→20:13)
[2017-08-05] MEDS: INSULIN DETEMIR 100 UNITS/ML VIAL SQ SCH ×2 (08:51→19:44)
[2017-08-05] MEDS: ENOXAPARIN SODIUM 30 MG/0.3 ML SYRINGE SQ SCH (08:52)
[2017-08-05] MEDS: ASPIRIN 81 MG CHEW TAB CHEW SCH (08:53)
[2017-08-05] MEDS: AZITHROMYCIN 250 MG TAB PO SCH (08:53)
[2017-08-05] MEDS: CARVEDILOL 6.25 MG TAB PO SCH ×2 (08:53→19:44)
[2017-08-05] MEDS: FUROSEMIDE 40 MG/4 ML VIAL IV PUSH SCH (08:54)
[2017-08-05] MEDS: methylPREDNISolone SOD SUCC 40 MG/1 ML VIAL IV SCH (08:54)
[2017-08-05] MEDS: BUDESONIDE-FORMOTEROL 160/4.5 MCG INHALER INH SCH ×2 (08:54→19:44)
[2017-08-05] MEDS: SODIUM CHLORIDE 0.9% FLUSH 10 ML FLUSH IV FLUSH SCH ×2 (08:54→19:44)
[2017-08-05] MEDS: amLODIPine BESYLATE 5 MG TAB PO SCH (08:56)
--- NOTE | 2017-08-05 09:17 | HHI.PR ---
Subjective Remarks sitting on the chair with no acute distress. however on five liters of oxygen via n/C. denies pain. no fever. Objective Vitals Vital Signs Date Time Temp Pulse Resp B/P (MAP) Pulse Ox O2 Delivery O2 Flow Rate FiO2 08/05/17 08:00 61 08/05/17 07:00 98.0 61 15 141/85 (103) 98 08/05/17 07:00 66 08/05/17 07:00 99 Nasal Cannula 5.00 08/05/17 06:00 78 08/05/17 05:00 80 08/05/17 04:00 66 08/05/17 03:00 97.8 66 146/78 (100) 97 08/05/17 03:00 66 08/05/17 02:00 60 08/05/17 01:00 60 08/05/17 00:00 60 08/04/17 23:00 97.3 64 151/78 (102) 100 08/04/17 23:00 60 08/04/17 22:00 62 08/04/17 21:00 60 08/04/17 20:09 99 Partial Rebreather 15.00 08/04/17 20:00 62 08/04/17 19:00 96.9 67 158/74 (102) 96 08/04/17 19:00 96 Non-Rebreather 100 08/04/17 19:00 62 08/04/17 18:00 61 08/04/17 17:00 60 08/04/17 16:00 70 08/04/17 15:06 98.7 71 18 111/62 (78) 90 08/04/17 15:00 63 08/04/17 14:00 67 08/04/17 13:00 68 08/04/17 12:45 94 Partial Rebreather 08/04/17 12:00 72 08/04/17 11:14 98.9 72 18 140/78 (98) 90 08/04/17 11:00 69 08/04/17 10:00 66 I/O 08/04/17 08/04/17 08/04/17 08/05/17 08/05/17 08/05/17 07:00 15:00 23:00 07:00 15:00 23:00 Intake Total 916 ml 820 ml 348 ml Output Total 650 ml 425 ml 450 ml Balance 266 ml 395 ml -102 ml Intake Oral 720 ml 720 ml 240 ml IV Total 196 ml 100 ml 108 ml Output Urine Total 650 ml 425 ml 450 ml # Voids 3 # Bowel Movements 0 0 Result Diagram: 08/04/17 0607 08/05/17 0515 Imaging Last Impressions Chest X-Ray 08/03/17 0600 Signed Impressions: Service Date/Time: Thursday, August 03, 2017 05:21 - CONCLUSION: 1. Hypoinflation with bibasilar atelectatic changes. Associated effusion on the left. 2. Slight improved aeration right base. Left base is stable. James Cross MD Chest CT 08/01/17 1916 Signed Impressions: Service Date/Time: July 21:11 - CONCLUSION: Right perihilar and bibasilar pneumonia. Micheal Oliva MD Renal Ultrasound 08/01/17 0000 Signed Impressions: Service Date/Time: July 19:59 - CONCLUSION: No acute abnormality demonstrated. Benign-appearing bilateral renal cysts. Micheal Oliva MD Objective Remarks GENERAL: This is a well-nourished, well-developed patient, in no apparent distress. CARDIOVASCULAR: Regular rate and regular rhythm without murmurs, gallops, or rubs. RESPIRATORY: better air entry bilaterally. GASTROINTESTINAL: Abdomen soft, non-tender, nondistended. Normal, active bowel sounds MUSCULOSKELETAL: Extremities without clubbing, cyanosis, or edema. NEURO: Alert & Oriented x4 to person, place, time, situation. Moves all ext x4 Procedures None Medications and IVs Current Medications Dextrose (D50w (Vial) Inj) 50 ml UNSCH PRN IV HYPOGLYCEMIA-SEE COMMENTS; Start 07/29/17 at 22:30; Stop 07/30/17 at 00:16; Status DC Dextrose/Sodium Chloride 1,000 ml @ 75 mls/hr [id number] IV Last administered on 07/29/17 22:42; Start 07/29/17 at 22:16; Stop 07/30/17 at 00:17; Status DC Furosemide (Lasix Inj) 40 mg ONCE ONCE IV PUSH Last administered on 07/29/17 22:45; Start 07/29/17 at 22:30; Stop 07/29/17 at 22:31; Status DC Sodium Chloride (NS Flush) 2 ml UNSCH PRN IVF FLUSH AFTER USING IV ACCESS; Start 07/29/17 at 22:30; Stop 07/30/17 at 00:17; Status DC Methylprednisolone Sodium Succinate (SoluMEDROL INJ) 125 mg ONCE ONCE IVP Last administered on 07/29/17 22:43; Start 07/29/17 at 22:30; Stop 07/29/17 at 22:31; Status DC Albuterol/ Ipratropium (Duoneb Neb) 1 ampule Q15M INH Last administered on 07/29 22:59; Start 07/29/17 at 22:30; Stop 07/29/17 at 23:01; Status DC Dextrose (D50w (Syr) Inj) 50 ml STK-MED ONCE .ROUTE Last administered on 23:06; Start 07/29/17 at 23:05; Stop 07/29/17 at 23:06; Status DC Ceftriaxone Sodium 1000 mg/ Sodium Chloride 100 ml @ 200 mls/hr ONCE ONCE IV Last administered on 07/30/17 00:01; Start 07/30/17 at 00:00; Stop 07/30/17 at 00:29; Status DC Azithromycin 500 mg/Sodium Chloride 250 ml @ 250 mls/hr ONCE ONCE IV Last administered on 07/30/17 00:39; Start 07/30/17 at 00:00; Stop 07/30/17 at 00:59 ; Status DC Sodium Chloride (NS Flush) 2 ml UNSCH PRN IV FLUSH FLUSH AFTER USING IV ACCESS Last administered on 07/30/17 16:52; Start 07/30/17 at 00:15 Sodium Chloride (NS Flush) 2 ml BID IV FLUSH Last administered on 08/05/17 08: 54; Start 07/30/17 at 09:00 Naloxone HCl (Narcan Inj) 0.4 mg UNSCH PRN IV SEE LABEL COMMENTS; Start at 00:15 Dextrose (D50w (Vial) Inj) 50 ml UNSCH PRN IV HYPOGLYCEMIA-SEE COMMENTS; Start 07/30/17 at 00:15; Stop 07/30/17 at 13:43; Status DC Glucagon (Glucagon Inj) 1 mg UNSCH PRN OTHER HYPOGLYCEMIA-SEE COMMENTS; Start 07/30/17 at 00:15; Stop 07/30/17 at 13:43; Status DC Albuterol/ Ipratropium (Duoneb Neb) 1 ampule Q6HR NEB NEB Last administered on 08/02/17 21:01; Start 07/30/17 at 04:00; Stop 08/03/17 at 03:59; Status DC Albuterol/ Ipratropium (Duoneb Neb) 1 ampule Q2HR NEB PRN NEB wheezing; Start 07/30/17 at 00:15 Dextrose 500 ml @ 42 mls/hr [id number] IV Last administered on 07/30/17 01:00; Start 07/30/17 at 00:30; Stop 07/30/17 at 13:43; Status DC Furosemide (Lasix Inj) 40 mg BID@09,18 IV PUSH Last administered on 08/05/17 08:54; Start 07/30/17 at 18:00 Furosemide (Lasix Inj) 40 mg ONCE ONCE IV PUSH Last administered on 07/30/17 12:15; Start 07/30/17 at 11:15; Stop 07/30/17 at 11:16; Status DC Ceftriaxone Sodium 1000 mg/ Sodium Chloride 100 ml @ 200 mls/hr Q24H IV Last administered on 08/04/17 22:00; Start 07/30/17 at 22:00 Insulin Aspart (NovoLOG SUPPLEMENTAL SCALE) 1 ACHS SLIDING SCALE SQ Last administered on 08/04/17 12:00; Start 07/30/17 at 16:00; Stop 08/04/17 at 17:58 ; Status DC Dextrose (D50w (Vial) Inj) 50 ml UNSCH PRN IV HYPOGLYCEMIA-SEE COMMENTS; Start 07/30/17 at 13:45; Stop 08/04/17 at 17:58; Status DC Glucagon (Glucagon Inj) 1 mg UNSCH PRN OTHER HYPOGLYCEMIA-SEE COMMENTS; Start 07/30/17 at 13:45; Stop 08/04/17 at 17:59; Status DC Dextrose/Sodium Chloride 1,000 ml @ 40 mls/hr Q24H IV Last administered on 13:45; Start 07/30/17 at 13:45; Stop 07/30/17 at 21:47; Status DC Acetaminophen (Tylenol) 500 mg Q4H PRN PO FEVER Last administered on 08/01/17 14:42; Start 07/30/17 at 16:15 Azithromycin (Zithromax) 500 mg DAILY PO Last administered on 08/05/17 08:53; Start 07/31/17 at 09:00 Potassium Chloride/Sodium Chloride 1,000 ml @ 42 mls/hr [id number] IV Last administered on 07/31/17 10:35; Start 07/31/17 at 09:45; Stop 08/01/17 at 09:33 ; Status DC Potassium Chloride/Sodium Chloride 1,000 ml @ 42 mls/hr [id number] IV Last administered on 08/01/17 17:42; Start 08/01/17 at 16:15; Stop 08/02/17 at 16:03 ; Status DC Methylprednisolone Sodium Succinate (SoluMEDROL INJ) 40 mg BID IV Last administered on 08/03/17 09:17; Start 08/01/17 at 21:00; Stop 08/03/17 at 11:56 ; Status DC Insulin Detemir (Levemir Inj) 5 units BID SQ Last administered on 08/03/17 09: 00; Start 08/02/17 at 13:45; Stop 08/03/17 at 09:07; Status DC Budesonide/ Formoterol Fumarate (Symbicort 160-4.5 Inh) 2 puff Q12HR INH Last administered on 08/05/17 08:54; Start 08/02/17 at 21:00 Guaifenesin (Robitussin Liq) 200 mg Q4H PRN PO COUGH; Start 08/03/17 at 09:00 Insulin Detemir (Levemir Inj) 7 units BID SQ Last administered on 08/04/17 08: 29; Start 08/03/17 at 21:00; Stop 08/04/17 at 08:51; Status DC Enoxaparin Sodium (Lovenox Inj) 30 mg Q24H SQ Last administered on 08/05/17 08 :52; Start 08/03/17 at 10:00 Methylprednisolone Sodium Succinate (SoluMEDROL INJ) 40 mg DAILY IV Last administered on 08/05/17 08:54; Start 08/04/17 at 07:00 Albuterol/ Ipratropium (Duoneb Neb) 1 ampule BID NEB INH Last administered on 08/05/17 08:35; Start 08/03/17 at 20:00 Clonidine (Catapres) 0.1 mg Q6H PRN PO SBP>160, DBP>90 Last administered on 00:03; Start 08/03/17 at 23:15 Insulin Detemir (Levemir Inj) 10 units BID SQ Last administered on 08/05/17 08 :51; Start 08/04/17 at 09:00 Docusate Sodium (Colace) 100 mg BID PRN PO CONSTIPATION Last administered on 18:03; Start 08/04/17 at 08:45 Amlodipine Besylate (Norvasc) 5 mg DAILY PO Last administered on 08/05/17 08: 56; Start 08/04/17 at 09:00 Carvedilol (Coreg) 6.25 mg Q12HR PO Last administered on 08/05/17 08:53; Start 08/04/17 at 09:00 Aspirin (Aspirin Chew) 81 mg DAILY CHEW Last administered on 08/05/17 08:53; Start 08/04/17 at 09:00 Miscellaneous Medication ([facility]) Please discontinue previ... ONCE ONCE .XX Last administered on 08/04/17 18:00; Start 08/04/17 at 18:00; Stop 08/04/17 at 18:01; Status DC Dextrose (D50w (Vial) Inj) 50 ml UNSCH PRN IV PUSH HYPOGLYCEMIA - SEE COMMENTS ; Start 08/04/17 at 18:00 Glucagon (Glucagon Inj) 1 mg UNSCH PRN OTHER HYPOGLYCEMIA-SEE COMMENTS; Start 08/04/17 at 18:00 Insulin Aspart (NovoLOG SUPPLEMENTAL SCALE) 1 ACHS SLIDING SCALE SQ Last administered on 08/05/17 08:00; Start 08/04/17 at 17:57 A/P Assessment and Plan A/P 1. Unresponsiveness: Secondary to severe hypoglycemia; this has resolved. 2. Acute exacerbation of chronic systolic congestive heart failure: Continue diuresis with Lasix. Caution with IV fluids. resumed Coreg- will restart losartan if renal function stable and ok with nephrology. 3. diabetes mellitus; uncontrolled now- continue levemir and continue with accu- checks. the blood sugar level expected to improve as the steroids being tapered off. 4. renal insufficiency with unknown duration- likely chronic- will monitor renal function- nephrology following. 5. Leukocytosis: due to pneumonia and steroids- afebrile- will monitor. 7. CODE STATUS: DO NOT RESUSCITATE. 8. Palliative care consult appreciated. 9. Pneumonia: Continue antibiotics, oxygen. Appreciate pulmonology recommendations.ST consulted for swallow evaluation; started on puree diet. 10.hypertension; uncontrolled- however overall improved; resumed amlodipine and coreg- will monitor and adjust the regimen as needed. DVT prophylaxis with subq lovenox. consulted PT. Arya Garcia MD Aug 05, 2017 09:17
--- NOTE | 2017-08-05 12:59 | HHI.PR ---
Subjective Remarks Alert and better . On O 2 3 L. Refused Bipap. No SOB at Rest. CT shows basal infiltrates. No fever Objective Vital Signs Date Time Temp Pulse Resp B/P (MAP) Pulse Ox O2 Delivery O2 Flow Rate FiO2 08/05/17 12:08 64 08/05/17 11:00 98.6 75 18 114/63 (80) 92 08/05/17 11:00 75 08/05/17 10:00 69 08/05/17 09:00 76 08/05/17 08:35 90 Nasal Cannula 5.00 08/05/17 08:00 61 08/05/17 07:00 98.0 61 15 141/85 (103) 98 08/05/17 07:00 66 08/05/17 07:00 99 Nasal Cannula 5.00 08/05/17 06:00 78 08/05/17 05:00 80 08/05/17 04:00 66 08/05/17 03:00 97.8 66 146/78 (100) 97 08/05/17 03:00 66 08/05/17 02:00 60 08/05/17 01:00 60 08/05/17 00:00 60 08/04/17 23:00 97.3 64 151/78 (102) 100 08/04/17 23:00 60 08/04/17 22:00 62 08/04/17 21:00 60 08/04/17 20:09 99 Partial Rebreather 15.00 08/04/17 20:00 62 08/04/17 19:00 96.9 67 158/74 (102) 96 08/04/17 19:00 96 Non-Rebreather 100 08/04/17 19:00 62 08/04/17 18:00 61 08/04/17 17:00 60 08/04/17 16:00 70 08/04/17 15:06 98.7 71 18 111/62 (78) 90 08/04/17 15:00 63 08/04/17 14:00 67 08/04/17 13:00 68 I/O 08/04/17 08/04/17 08/04/17 08/05/17 08/05/17 08/05/17 07:00 15:00 23:00 07:00 15:00 23:00 Intake Total 916 ml 820 ml 348 ml Output Total 650 ml 425 ml 450 ml Balance 266 ml 395 ml -102 ml Intake Oral 720 ml 720 ml 240 ml IV Total 196 ml 100 ml 108 ml Output Urine Total 650 ml 425 ml 450 ml # Voids 3 # Bowel Movements 0 0 Result Diagram: 08/04/17 0607 08/05/17 0515 Objective Remarks GENERAL: This is a well-nourished, well-developed patient, in no distress. CARDIOVASCULAR: Irregular rate and rhythm without murmurs, gallops, or rubs. RESPIRATORY: Diffuse expiratory wheezes, diminish breath sounds bilaterally.Occ Basal crackles GASTROINTESTINAL: Abdomen soft, non-tender,nondistended. Normal active bowel sounds MUSCULOSKELETAL: Extremities without clubbing, cyanosis,but has 1 + edema. NEURO: Alert & Oriented. Moves all ext x4 Assessment and Plan Assessment and Plan Assessment and Plan Disease Oriented Problem List: (1) Hyperlipemia (2) Hypertension (3) Acute renal failure (4) Hypoglycemia (5) UTI (urinary tract infection) (6) CHF exacerbation (7) Chronic systolic CHF (congestive heart failure) (8) Pneumonia, Aspiration Symptom Scale: (1) Confusion 0-10 Scale: Unable to quantify (2) Anorexia 0-10 Scale: Unable to quantify (3) Cough 0-10 Scale: Unable to quantify (4) Dyspnea and respiratory abnormalities Plan : 1. D/C Rocephin 2. D/C Zithromax 500 mg 3. lasix 40 mg IV daily 4. CBC,BMP in am 5. Nebs qid , Duoneb. 6. D/C BiPAP at HS 7. Wean O2 to N/c 3 L Rohan Gates MD Aug 05, 2017 12:59
--- NOTE | 2017-08-05 14:33 | HHI.NPPN ---
Subjective History of Present Illness 72-year-old with history of confusion, pneumonia and chronic kidney disease with MARTINA Review of Systems General Constitutional: Fatigue Objective Data Data Vital Signs Date Time Temp Pulse Resp B/P (MAP) Pulse Ox O2 Delivery O2 Flow Rate FiO2 08/05/17 14:19 60 08/05/17 13:17 60 08/05/17 12:08 64 08/05/17 11:00 98.6 75 18 114/63 (80) 92 08/05/17 11:00 75 08/05/17 10:00 69 08/05/17 09:00 76 08/05/17 08:35 90 Nasal Cannula 5.00 08/05/17 08:00 61 08/05/17 07:00 98.0 61 15 141/85 (103) 98 08/05/17 07:00 66 08/05/17 07:00 99 Nasal Cannula 5.00 08/05/17 06:00 78 08/05/17 05:00 80 08/05/17 04:00 66 08/05/17 03:00 97.8 66 146/78 (100) 97 08/05/17 03:00 66 08/05/17 02:00 60 08/05/17 01:00 60 08/05/17 00:00 60 08/04/17 23:00 97.3 64 151/78 (102) 100 08/04/17 23:00 60 08/04/17 22:00 62 08/04/17 21:00 60 08/04/17 20:09 99 Partial Rebreather 15.00 08/04/17 20:00 62 08/04/17 19:00 96.9 67 158/74 (102) 96 08/04/17 19:00 96 Non-Rebreather 100 08/04/17 19:00 62 08/04/17 18:00 61 08/04/17 17:00 60 08/04/17 16:00 70 08/04/17 15:06 98.7 71 18 111/62 (78) 90 08/04/17 15:00 63 -: 08/04/17 0607 08/05/17 0515 Physical Exam General Appearance: Well Developed Neck Neck Exam: Neck Supple Pulmonary Resp Exam: Decreased Bases Cardiology CV Exam: Regular Gastrointestinal/Abdomen GI Exam: Soft, Non-Tender Extremeties Extremities Exam: No Edema Neurologic Neuro Exam: Alert Assessment/Plan Problem List: (1) Acute renal failure ICD Codes: N17.9 - Acute kidney failure, unspecified Plan: Creatinine is trending downwards ultrasound showed chronic kidney disease with bilateral renal cysts Cr 2.05 possible Pneumonia on Ceftriaxone Lasix 40 mg daily ordered Avoid nephrotoxic Follow BMP (2) UTI (urinary tract infection) ICD Codes: N39.0 - Urinary tract infection, site not specified Plan: Her urine culture negative (3) Chronic systolic CHF (congestive heart failure) ICD Codes: I50.22 - Chronic systolic (congestive) heart failure Plan: Echocardiogram is ordered (4) Hypoglycemia ICD Codes: E16.2 - Hypoglycemia, unspecified Plan: Continue to monitor Sam Pike MD Aug 05, 2017 14:33
[2017-08-05] MEDS: cefTRIAXone INJ 1,000 MG in SODIUM CHLORIDE 0.9% INJ 100 ML IV SCH (22:00)
[2017-08-06] VITALS (26 sets, daily range): BP systolic 108–137; BP diastolic 60–91; PULSE 60–140; RESP 14–18; TEMP 98.1–98.6; O2SAT 89–98
[2017-08-06] MEDS: MEDIUM DOSE INSULIN NOVOLOG SUPPLEMENTAL SCALE SQ SCH ×4 (08:00→21:00)
--- NOTE | 2017-08-06 08:53 | HHI.PR ---
Subjective Remarks resting comfortably with no distress. however still on four liters of oxygen via N/C. no fever. d/w the RN and no acute issues over night. Objective Vitals Vital Signs Date Time Temp Pulse Resp B/P (MAP) Pulse Ox O2 Delivery O2 Flow Rate FiO2 08/06/17 07:53 98.1 66 113/67 (82) 90 08/06/17 06:23 62 08/06/17 05:00 63 08/06/17 04:15 98.6 61 18 108/60 (76) 94 08/06/17 04:13 62 08/06/17 03:00 95 Nasal Cannula 4.00 08/06/17 03:00 60 08/06/17 02:00 70 08/06/17 01:00 68 08/06/17 00:00 72 08/05/17 23:19 98.6 62 18 117/60 (79) 98 08/05/17 23:00 62 08/05/17 23:00 98 Nasal Cannula 4.00 08/05/17 22:00 77 08/05/17 21:24 70 08/05/17 20:13 96 Nasal Cannula 4.00 08/05/17 20:00 68 08/05/17 19:00 67 08/05/17 19:00 98.4 65 18 118/91 (100) 93 08/05/17 19:00 94 Nasal Cannula 4.00 08/05/17 18:23 70 08/05/17 17:06 62 08/05/17 16:32 60 08/05/17 15:25 96 Nasal Cannula 3.00 08/05/17 15:20 61 08/05/17 15:20 98.4 61 18 110/59 (76) 95 08/05/17 14:19 60 08/05/17 13:17 60 08/05/17 12:08 64 08/05/17 11:00 98.6 75 18 114/63 (80) 92 08/05/17 11:00 75 08/05/17 10:00 69 08/05/17 09:00 76 I/O 08/05/17 08/05/17 08/05/17 08/06/17 08/06/17 08/06/17 07:00 15:00 23:00 07:00 15:00 23:00 Intake Total 348 ml 640 ml 560 ml Output Total 450 ml 460 ml Balance -102 ml 640 ml 100 ml Intake Oral 240 ml 640 ml 360 ml IV Total 108 ml 200 ml Output Urine Total 450 ml 460 ml # Voids 4 # Bowel Movements 0 0 1 Result Diagram: 08/04/17 0607 08/05/17 0515 Imaging Last Impressions Chest X-Ray 08/03/17 0600 Signed Impressions: Service Date/Time: Thursday, August 03, 2017 05:21 - CONCLUSION: 1. Hypoinflation with bibasilar atelectatic changes. Associated effusion on the left. 2. Slight improved aeration right base. Left base is stable. James Cross MD Chest CT 08/01/17 1916 Signed Impressions: Service Date/Time: July 21:11 - CONCLUSION: Right perihilar and bibasilar pneumonia. Micheal Oliva MD Renal Ultrasound 08/01/17 0000 Signed Impressions: Service Date/Time: July 19:59 - CONCLUSION: No acute abnormality demonstrated. Benign-appearing bilateral renal cysts. Micheal Oliva MD Objective Remarks GENERAL: This is a well-nourished, well-developed patient, in no apparent distress. CARDIOVASCULAR: Regular rate and regular rhythm without murmurs, gallops, or rubs. RESPIRATORY: better air entry bilaterally. GASTROINTESTINAL: Abdomen soft, non-tender, nondistended. Normal, active bowel sounds MUSCULOSKELETAL: Extremities without clubbing, cyanosis, or edema. NEURO: Alert & Oriented x4 to person, place, time, situation. Moves all ext x4 Procedures None Medications and IVs Current Medications Dextrose (D50w (Vial) Inj) 50 ml UNSCH PRN IV HYPOGLYCEMIA-SEE COMMENTS; Start 07/29/17 at 22:30; Stop 07/30/17 at 00:16; Status DC Dextrose/Sodium Chloride 1,000 ml @ 75 mls/hr [id number] IV Last administered on 07/29/17 22:42; Start 07/29/17 at 22:16; Stop 07/30/17 at 00:17; Status DC Furosemide (Lasix Inj) 40 mg ONCE ONCE IV PUSH Last administered on 07/29/17 22:45; Start 07/29/17 at 22:30; Stop 07/29/17 at 22:31; Status DC Sodium Chloride (NS Flush) 2 ml UNSCH PRN IVF FLUSH AFTER USING IV ACCESS; Start 07/29/17 at 22:30; Stop 07/30/17 at 00:17; Status DC Methylprednisolone Sodium Succinate (SoluMEDROL INJ) 125 mg ONCE ONCE IVP Last administered on 07/29/17 22:43; Start 07/29/17 at 22:30; Stop 07/29/17 at 22:31; Status DC Albuterol/ Ipratropium (Duoneb Neb) 1 ampule Q15M INH Last administered on 07/29 22:59; Start 07/29/17 at 22:30; Stop 07/29/17 at 23:01; Status DC Dextrose (D50w (Syr) Inj) 50 ml STK-MED ONCE .ROUTE Last administered on 23:06; Start 07/29/17 at 23:05; Stop 07/29/17 at 23:06; Status DC Ceftriaxone Sodium 1000 mg/ Sodium Chloride 100 ml @ 200 mls/hr ONCE ONCE IV Last administered on 07/30/17 00:01; Start 07/30/17 at 00:00; Stop 07/30/17 at 00:29; Status DC Azithromycin 500 mg/Sodium Chloride 250 ml @ 250 mls/hr ONCE ONCE IV Last administered on 07/30/17 00:39; Start 07/30/17 at 00:00; Stop 07/30/17 at 00:59 ; Status DC Sodium Chloride (NS Flush) 2 ml UNSCH PRN IV FLUSH FLUSH AFTER USING IV ACCESS Last administered on 07/30/17 16:52; Start 07/30/17 at 00:15 Sodium Chloride (NS Flush) 2 ml BID IV FLUSH Last administered on 08/05/17 19: 44; Start 07/30/17 at 09:00 Naloxone HCl (Narcan Inj) 0.4 mg UNSCH PRN IV SEE LABEL COMMENTS; Start at 00:15 Dextrose (D50w (Vial) Inj) 50 ml UNSCH PRN IV HYPOGLYCEMIA-SEE COMMENTS; Start 07/30/17 at 00:15; Stop 07/30/17 at 13:43; Status DC Glucagon (Glucagon Inj) 1 mg UNSCH PRN OTHER HYPOGLYCEMIA-SEE COMMENTS; Start 07/30/17 at 00:15; Stop 07/30/17 at 13:43; Status DC Albuterol/ Ipratropium (Duoneb Neb) 1 ampule Q6HR NEB NEB Last administered on 08/02/17 21:01; Start 07/30/17 at 04:00; Stop 08/03/17 at 03:59; Status DC Albuterol/ Ipratropium (Duoneb Neb) 1 ampule Q2HR NEB PRN NEB wheezing; Start 07/30/17 at 00:15 Dextrose 500 ml @ 42 mls/hr [id number] IV Last administered on 07/30/17 01:00; Start 07/30/17 at 00:30; Stop 07/30/17 at 13:43; Status DC Furosemide (Lasix Inj) 40 mg BID@09,18 IV PUSH Last administered on 08/05/17 08:54; Start 07/30/17 at 18:00; Stop 08/05/17 at 13:01; Status DC Furosemide (Lasix Inj) 40 mg ONCE ONCE IV PUSH Last administered on 07/30/17 12:15; Start 07/30/17 at 11:15; Stop 07/30/17 at 11:16; Status DC Ceftriaxone Sodium 1000 mg/ Sodium Chloride 100 ml @ 200 mls/hr Q24H IV Last administered on 08/05/17 22:00; Start 07/30/17 at 22:00 Insulin Aspart (NovoLOG SUPPLEMENTAL SCALE) 1 ACHS SLIDING SCALE SQ Last administered on 08/04/17 12:00; Start 07/30/17 at 16:00; Stop 08/04/17 at 17:58 ; Status DC Dextrose (D50w (Vial) Inj) 50 ml UNSCH PRN IV HYPOGLYCEMIA-SEE COMMENTS; Start 07/30/17 at 13:45; Stop 08/04/17 at 17:58; Status DC Glucagon (Glucagon Inj) 1 mg UNSCH PRN OTHER HYPOGLYCEMIA-SEE COMMENTS; Start 07/30/17 at 13:45; Stop 08/04/17 at 17:59; Status DC Dextrose/Sodium Chloride 1,000 ml @ 40 mls/hr Q24H IV Last administered on 13:45; Start 07/30/17 at 13:45; Stop 07/30/17 at 21:47; Status DC Acetaminophen (Tylenol) 500 mg Q4H PRN PO FEVER Last administered on 08/01/17 14:42; Start 07/30/17 at 16:15 Azithromycin (Zithromax) 500 mg DAILY PO Last administered on 08/05/17 08:53; Start 07/31/17 at 09:00; Stop 08/05/17 at 13:00; Status DC Potassium Chloride/Sodium Chloride 1,000 ml @ 42 mls/hr [id number] IV Last administered on 07/31/17 10:35; Start 07/31/17 at 09:45; Stop 08/01/17 at 09:33 ; Status DC Potassium Chloride/Sodium Chloride 1,000 ml @ 42 mls/hr [id number] IV Last administered on 08/01/17 17:42; Start 08/01/17 at 16:15; Stop 08/02/17 at 16:03 ; Status DC Methylprednisolone Sodium Succinate (SoluMEDROL INJ) 40 mg BID IV Last administered on 08/03/17 09:17; Start 08/01/17 at 21:00; Stop 08/03/17 at 11:56 ; Status DC Insulin Detemir (Levemir Inj) 5 units BID SQ Last administered on 08/03/17 09: 00; Start 08/02/17 at 13:45; Stop 08/03/17 at 09:07; Status DC Budesonide/ Formoterol Fumarate (Symbicort 160-4.5 Inh) 2 puff Q12HR INH Last administered on 08/05/17 19:44; Start 08/02/17 at 21:00 Guaifenesin (Robitussin Liq) 200 mg Q4H PRN PO COUGH; Start 08/03/17 at 09:00 Insulin Detemir (Levemir Inj) 7 units BID SQ Last administered on 08/04/17 08: 29; Start 08/03/17 at 21:00; Stop 08/04/17 at 08:51; Status DC Enoxaparin Sodium (Lovenox Inj) 30 mg Q24H SQ Last administered on 08/05/17 08 :52; Start 08/03/17 at 10:00 Methylprednisolone Sodium Succinate (SoluMEDROL INJ) 40 mg DAILY IV Last administered on 08/05/17 08:54; Start 08/04/17 at 07:00; Stop 08/05/17 at 09:13 ; Status DC Albuterol/ Ipratropium (Duoneb Neb) 1 ampule BID NEB INH Last administered on 08/05/17 20:13; Start 08/03/17 at 20:00 Clonidine (Catapres) 0.1 mg Q6H PRN PO SBP>160, DBP>90 Last administered on 00:03; Start 08/03/17 at 23:15 Insulin Detemir (Levemir Inj) 10 units BID SQ Last administered on 08/05/17 19 :44; Start 08/04/17 at 09:00 Docusate Sodium (Colace) 100 mg BID PRN PO CONSTIPATION Last administered on 18:03; Start 08/04/17 at 08:45 Amlodipine Besylate (Norvasc) 5 mg DAILY PO Last administered on 08/05/17 08: 56; Start 08/04/17 at 09:00 Carvedilol (Coreg) 6.25 mg Q12HR PO Last administered on 08/05/17 19:44; Start 08/04/17 at 09:00 Aspirin (Aspirin Chew) 81 mg DAILY CHEW Last administered on 08/05/17 08:53; Start 08/04/17 at 09:00 Miscellaneous Medication ([facility] Information) Please discontinue previ... ONCE ONCE .XX Last administered on 08/04/17 18:00; Start 08/04/17 at 18:00; Stop 08/04/17 at 18:01; Status DC Dextrose (D50w (Vial) Inj) 50 ml UNSCH PRN IV PUSH HYPOGLYCEMIA - SEE COMMENTS ; Start 08/04/17 at 18:00 Glucagon (Glucagon Inj) 1 mg UNSCH PRN OTHER HYPOGLYCEMIA-SEE COMMENTS; Start 08/04/17 at 18:00 Insulin Aspart (NovoLOG SUPPLEMENTAL SCALE) 1 ACHS SLIDING SCALE SQ Last administered on 08/05/17 21:00; Start 08/04/17 at 17:57 Methylprednisolone Sodium Succinate (SoluMEDROL INJ) 20 mg DAILY IV ; Start at 10:00 Furosemide (Lasix Inj) 40 mg DAILY IV PUSH ; Start 08/06/17 at 09:00 A/P Assessment and Plan A/P 1. Unresponsiveness: Secondary to severe hypoglycemia; this has resolved. 2. Acute exacerbation of chronic systolic congestive heart failure: Continue diuresis with Lasix. Caution with IV fluids. resumed Coreg- will restart losartan if renal function stable and ok with nephrology. 3. diabetes mellitus; uncontrolled now- continue levemir and continue with accu- checks. the blood sugar level expected to improve as the steroids being tapered off. 4. renal insufficiency with unknown duration- likely chronic- will monitor renal function- nephrology following. 5. Leukocytosis: due to pneumonia and steroids- afebrile- will monitor. 7. CODE STATUS: DO NOT RESUSCITATE. 8. Palliative care consult appreciated. 9. Pneumonia: Continue antibiotics.will taper down the oxygen- Appreciate pulmonology recommendations.ST consulted for swallow evaluation; started on puree diet. 10.hypertension; has much improved; continue amlodipine and coreg- will monitor and adjust the regimen as needed. DVT prophylaxis with subq lovenox. consulted PT. Discharge Planning will continue to taper down the oxygen. dc to rehab within the next 24-48 hrs if stable. Arya Garcia MD Aug 06, 2017 08:53
[2017-08-06] MEDS: INSULIN DETEMIR 100 UNITS/ML VIAL SQ SCH ×2 (09:00→20:20)
[2017-08-06] MEDS ORDERED: FUROSEMIDE 40 MG/4 ML VIAL IV PUSH SCH (09:00)
[2017-08-06] MEDS: RESP: ALBUTEROL 2.5 MG/IPRATROPIUM 0.5 MG NEB (SCH) INH ×2 (09:03→21:15)
[2017-08-06] MEDS: CARVEDILOL 6.25 MG TAB PO SCH ×2 (09:49→20:19)
[2017-08-06] MEDS: ASPIRIN 81 MG CHEW TAB CHEW SCH (09:50)
[2017-08-06] MEDS: amLODIPine BESYLATE 5 MG TAB PO SCH (09:51)
[2017-08-06] MEDS: ENOXAPARIN SODIUM 30 MG/0.3 ML SYRINGE SQ SCH (09:51)
[2017-08-06] MEDS: BUDESONIDE-FORMOTEROL 160/4.5 MCG INHALER INH SCH ×2 (09:53→20:20)
[2017-08-06] MEDS: SODIUM CHLORIDE 0.9% FLUSH 10 ML FLUSH IV FLUSH SCH ×2 (09:54→20:20)
[2017-08-06] MEDS: methylPREDNISolone SOD SUCC 40 MG/1 ML VIAL IV SCH (10:25)
--- NOTE | 2017-08-06 11:16 | HHI.NPPN ---
Subjective History of Present Illness 72-year-old with history of confusion, pneumonia and chronic kidney disease with MARTINA Review of Systems General Constitutional: Fatigue Objective Data Data Vital Signs Date Time Temp Pulse Resp B/P (MAP) Pulse Ox O2 Delivery O2 Flow Rate FiO2 08/06/17 10:57 98.2 70 14 117/91 (100) 89 08/06/17 09:09 91 Nasal Cannula 4.00 08/06/17 07:53 98.1 66 113/67 (82) 90 08/06/17 07:30 60 08/06/17 06:23 62 08/06/17 05:00 63 08/06/17 04:15 98.6 61 18 108/60 (76) 94 08/06/17 04:13 62 08/06/17 03:00 95 Nasal Cannula 4.00 08/06/17 03:00 60 08/06/17 02:00 70 08/06/17 01:00 68 08/06/17 00:00 72 08/05/17 23:19 98.6 62 18 117/60 (79) 98 08/05/17 23:00 62 08/05/17 23:00 98 Nasal Cannula 4.00 08/05/17 22:00 77 08/05/17 21:24 70 08/05/17 20:13 96 Nasal Cannula 4.00 08/05/17 20:00 68 08/05/17 19:00 67 08/05/17 19:00 98.4 65 18 118/91 (100) 93 08/05/17 19:00 94 Nasal Cannula 4.00 08/05/17 18:23 70 08/05/17 17:06 62 08/05/17 16:32 60 08/05/17 15:25 96 Nasal Cannula 3.00 08/05/17 15:20 61 08/05/17 15:20 98.4 61 18 110/59 (76) 95 08/05/17 14:19 60 08/05/17 13:17 60 08/05/17 12:08 64 -: 08/04/17 0607 08/05/17 0515 Physical Exam General Appearance: Well Developed Neck Neck Exam: Neck Supple Pulmonary Resp Exam: Decreased Bases Cardiology CV Exam: Regular Gastrointestinal/Abdomen GI Exam: Soft, Non-Tender Extremeties Extremities Exam: No Edema Neurologic Neuro Exam: Alert Assessment/Plan Problem List: (1) Acute renal failure ICD Codes: N17.9 - Acute kidney failure, unspecified Plan: Creatinine1.7-2 range ultrasound showed chronic kidney disease with bilateral renal cysts Cr 2.05 possible Pneumonia on Ceftriaxone Lasix 40 mg daily ordered Avoid nephrotoxic Follow BMP (2) UTI (urinary tract infection) ICD Codes: N39.0 - Urinary tract infection, site not specified Plan: Her urine culture negative (3) Chronic systolic CHF (congestive heart failure) ICD Codes: I50.22 - Chronic systolic (congestive) heart failure Plan: Echocardiogram is ordered (4) Hypoglycemia ICD Codes: E16.2 - Hypoglycemia, unspecified Plan: Continue to monitor Sam Pike MD Aug 06, 2017 11:16
--- NOTE | 2017-08-06 13:01 | HHI.PR ---
Subjective Remarks Alert and better . On O 2 4 L. Will need O2 at [facility] No SOB at Rest. CT shows basal infiltrates. No fever Objective Vital Signs Date Time Temp Pulse Resp B/P (MAP) Pulse Ox O2 Delivery O2 Flow Rate FiO2 08/06/17 11:47 98.2 70 14 117/91 (100) 89 08/06/17 11:00 98 08/06/17 11:00 Nasal Cannula 3.00 100 08/06/17 10:57 98.2 70 14 117/91 (100) 89 08/06/17 09:09 91 Nasal Cannula 4.00 08/06/17 07:53 98.1 66 113/67 (82) 90 08/06/17 07:30 60 08/06/17 06:23 62 08/06/17 05:00 63 08/06/17 04:15 98.6 61 18 108/60 (76) 94 08/06/17 04:13 62 08/06/17 03:00 95 Nasal Cannula 4.00 08/06/17 03:00 60 08/06/17 02:00 70 08/06/17 01:00 68 08/06/17 00:00 72 08/05/17 23:19 98.6 62 18 117/60 (79) 98 08/05/17 23:00 62 08/05/17 23:00 98 Nasal Cannula 4.00 08/05/17 22:00 77 08/05/17 21:24 70 08/05/17 20:13 96 Nasal Cannula 4.00 08/05/17 20:00 68 08/05/17 19:00 67 08/05/17 19:00 98.4 65 18 118/91 (100) 93 08/05/17 19:00 94 Nasal Cannula 4.00 08/05/17 18:23 70 08/05/17 17:06 62 08/05/17 16:32 60 08/05/17 15:25 96 Nasal Cannula 3.00 08/05/17 15:20 61 08/05/17 15:20 98.4 61 18 110/59 (76) 95 08/05/17 14:19 60 08/05/17 13:17 60 I/O 08/05/17 08/05/17 08/05/17 08/06/17 08/06/17 08/06/17 07:00 15:00 23:00 07:00 15:00 23:00 Intake Total 348 ml 640 ml 560 ml Output Total 450 ml 460 ml Balance -102 ml 640 ml 100 ml Intake Oral 240 ml 640 ml 360 ml IV Total 108 ml 200 ml Output Urine Total 450 ml 460 ml # Voids 4 # Bowel Movements 0 0 1 Result Diagram: 08/04/17 0607 08/05/17 0515 Objective Remarks GENERAL: This is a well-nourished, well-developed patient, in no distress. CARDIOVASCULAR: Irregular rate and rhythm without murmurs, gallops, or rubs. RESPIRATORY: No wheezes, diminished breath sounds bilaterally.Occ Basal crackles GASTROINTESTINAL: Abdomen soft, non-tender,nondistended. Normal active bowel sounds MUSCULOSKELETAL: Extremities without clubbing, cyanosis,but has 1 + edema. NEURO: Alert & Oriented. Moves all ext x4 Assessment and Plan Assessment and Plan Assessment and Plan Disease Oriented Problem List: (1) Hyperlipemia (2) Hypertension (3) Acute renal failure (4) Hypoglycemia (5) UTI (urinary tract infection) (6) CHF exacerbation (7) Chronic systolic CHF (congestive heart failure) (8) Pneumonia, Aspiration Symptom Scale: (1) Confusion 0-10 Scale: Unable to quantify (2) Anorexia 0-10 Scale: Unable to quantify (3) Cough 0-10 Scale: Unable to quantify (4) Dyspnea and respiratory abnormalities Plan : 1. Ceftin 500 mg bid X 7 days 2. D/C Zithromax 3. Hold lasix 4. CBC,BMP in am 5. Nebs qid , Duoneb. 6. D/C BiPAP at HS 7. Wean O2 to N/C 2 L Rohan Gates MD Aug 06, 2017 13:01
[2017-08-06] MEDS: cefTRIAXone INJ 1,000 MG in SODIUM CHLORIDE 0.9% INJ 100 ML IV SCH (22:00)
[2017-08-07] VITALS (25 sets, daily range): BP systolic 103–139; BP diastolic 54–66; PULSE 60–70; RESP 14–20; TEMP 97.8–98.8; O2SAT 92–99
[2017-08-07 07:12] LABS: POTASSIUM 3.8 MEQ/L (3.5-5.1)
[2017-08-07] MEDS: RESP: ALBUTEROL 2.5 MG/IPRATROPIUM 0.5 MG NEB (SCH) INH (07:46)
--- NOTE | 2017-08-07 08:45 | HHI.PR ---
Subjective Remarks still on four liters of oxygen via N/C- however with no acute distress. no fever. denies pain. d/w the RN. Objective Vitals Vital Signs Date Time Temp Pulse Resp B/P (MAP) Pulse Ox O2 Delivery O2 Flow Rate FiO2 08/07/17 08:07 66 08/07/17 07:49 97 Nasal Cannula 4.00 08/07/17 07:28 98.5 61 14 139/65 (89) 99 08/07/17 06:07 60 08/07/17 05:17 65 08/07/17 04:07 60 08/07/17 03:45 61 08/07/17 03:00 97.8 64 16 103/54 (70) 92 08/07/17 03:00 Nasal Cannula 5.00 08/07/17 02:57 65 08/07/17 01:23 68 08/07/17 00:00 64 08/06/17 23:48 98.6 63 18 129/60 (83) 98 08/06/17 23:00 75 08/06/17 23:00 Nasal Cannula 4.00 08/06/17 22:23 71 08/06/17 21:29 69 08/06/17 20:08 94 Nasal Cannula 4.00 08/06/17 20:00 65 08/06/17 19:00 61 08/06/17 19:00 Nasal Cannula 4.00 08/06/17 19:00 98.2 61 18 137/76 (96) 96 08/06/17 18:40 140 08/06/17 17:00 96 08/06/17 16:00 79 08/06/17 15:00 89 08/06/17 15:00 Nasal Cannula 6.00 08/06/17 15:00 98.4 89 18 131/70 (90) 97 08/06/17 14:00 96 08/06/17 11:47 98.2 70 14 117/91 (100) 89 08/06/17 11:00 98 08/06/17 11:00 Nasal Cannula 3.00 100 08/06/17 10:57 98.2 70 14 117/91 (100) 89 08/06/17 09:09 91 Nasal Cannula 4.00 I/O 08/06/17 08/06/17 08/06/17 08/07/17 08/07/1717 07:00 15:00 23:00 07:00 15:00 23:00 Intake Total 560 ml 450 ml 580 ml Output Total 460 ml 350 ml Balance 100 ml 450 ml 230 ml Intake Oral 360 ml 450 ml 480 ml IV Total 200 ml 100 ml Output Urine Total 460 ml 350 ml # Voids 3 # Bowel Movements 1 0 Result Diagram: 08/04/17 0607 08/07/17 0540 Imaging Last Impressions Chest X-Ray 08/03/17 0600 Signed Impressions: Service Date/Time: Thursday, August 03, 2017 05:21 - CONCLUSION: 1. Hypoinflation with bibasilar atelectatic changes. Associated effusion on the left. 2. Slight improved aeration right base. Left base is stable. James Cross MD Chest CT 08/01/17 1916 Signed Impressions: Service Date/Time: July 21:11 - CONCLUSION: Right perihilar and bibasilar pneumonia. Micheal Oliva MD Renal Ultrasound 08/01/17 0000 Signed Impressions: Service Date/Time: July 19:59 - CONCLUSION: No acute abnormality demonstrated. Benign-appearing bilateral renal cysts. Micheal Oliva MD Objective Remarks GENERAL: This is a well-nourished, well-developed patient, in no apparent distress. CARDIOVASCULAR: Regular rate and regular rhythm without murmurs, gallops, or rubs. RESPIRATORY: better air entry bilaterally. GASTROINTESTINAL: Abdomen soft, non-tender, nondistended. Normal, active bowel sounds MUSCULOSKELETAL: Extremities without clubbing, cyanosis, or edema. NEURO: Alert & Oriented x4 to person, place, time, situation. Moves all ext x4 Procedures None Medications and IVs Current Medications Dextrose (D50w (Vial) Inj) 50 ml UNSCH PRN IV HYPOGLYCEMIA-SEE COMMENTS; Start 07/29/17 at 22:30; Stop 07/30/17 at 00:16; Status DC Dextrose/Sodium Chloride 1,000 ml @ 75 mls/hr [id number] IV Last administered on 07/29/17t 22:42; Start 07/29/17 at 22:16; Stop 07/30/17 at 00:17; Status DC Furosemide (Lasix Inj) 40 mg ONCE ONCE IV PUSH Last administered on 07/29/17 22:45; Start 07/29/17 at 22:30; Stop 07/29/17 at 22:31; Status DC Sodium Chloride (NS Flush) 2 ml UNSCH PRN IVF FLUSH AFTER USING IV ACCESS; Start 07/29/17 at 22:30; Stop 07/30/17 at 00:17; Status DC Methylprednisolone Sodium Succinate (SoluMEDROL INJ) 125 mg ONCE ONCE IVP Last administered on 07/29/17 22:43; Start 07/29/17 at 22:30; Stop 07/29/17 at 22:31; Status DC Albuterol/ Ipratropium (Duoneb Neb) 1 ampule Q15M INH Last administered on 07/29 22:59; Start 07/29/17 at 22:30; Stop 07/29/17 at 23:01; Status DC Dextrose (D50w (Syr) Inj) 50 ml STK-MED ONCE .ROUTE Last administered on 23:06; Start 07/29/17 at 23:05; Stop 07/29/17 at 23:06; Status DC Ceftriaxone Sodium 1000 mg/ Sodium Chloride 100 ml @ 200 mls/hr ONCE ONCE IV Last administered on 07/30/17 00:01; Start 07/30/17 at 00:00; Stop 07/30/17 at 00:29; Status DC Azithromycin 500 mg/Sodium Chloride 250 ml @ 250 mls/hr ONCE ONCE IV Last administered on 07/30/17 00:39; Start 07/30/17 at 00:00; Stop 07/30/17 at 00:59 ; Status DC Sodium Chloride (NS Flush) 2 ml UNSCH PRN IV FLUSH FLUSH AFTER USING IV ACCESS Last administered on 07/30/17 16:52; Start 07/30/17 at 00:15 Sodium Chloride (NS Flush) 2 ml BID IV FLUSH Last administered on 08/06/17 20: 20; Start 07/30/17 at 09:00 Naloxone HCl (Narcan Inj) 0.4 mg UNSCH PRN IV SEE LABEL COMMENTS; Start at 00:15 Dextrose (D50w (Vial) Inj) 50 ml UNSCH PRN IV HYPOGLYCEMIA-SEE COMMENTS; Start 07/30/17 at 00:15; Stop 07/30/17 at 13:43; Status DC Glucagon (Glucagon Inj) 1 mg UNSCH PRN OTHER HYPOGLYCEMIA-SEE COMMENTS; Start 07/30/17 at 00:15; Stop 07/30/17 at 13:43; Status DC Albuterol/ Ipratropium (Duoneb Neb) 1 ampule Q6HR NEB NEB Last administered on 08/02/17 21:01; Start 07/30/17 at 04:00; Stop 08/03/17 at 03:59; Status DC Albuterol/ Ipratropium (Duoneb Neb) 1 ampule Q2HR NEB PRN NEB wheezing; Start 07/30/17 at 00:15 Dextrose 500 ml @ 42 mls/hr [id number] IV Last administered on 07/30/17 01:00; Start 07/30/17 at 00:30; Stop 07/30/17 at 13:43; Status DC Furosemide (Lasix Inj) 40 mg BID@09,18 IV PUSH Last administered on 08/05/17 08:54; Start 07/30/17 at 18:00; Stop 08/05/17 at 13:01; Status DC Furosemide (Lasix Inj) 40 mg ONCE ONCE IV PUSH Last administered on 07/30/17 12:15; Start 07/30/17 at 11:15; Stop 07/30/17 at 11:16; Status DC Ceftriaxone Sodium 1000 mg/ Sodium Chloride 100 ml @ 200 mls/hr Q24H IV Last administered on 08/06/17 22:00; Start 07/30/17 at 22:00 Insulin Aspart (NovoLOG SUPPLEMENTAL SCALE) 1 ACHS SLIDING SCALE SQ Last administered on 08/04/17 12:00; Start 07/30/17 at 16:00; Stop 08/04/17 at 17:58 ; Status DC Dextrose (D50w (Vial) Inj) 50 ml UNSCH PRN IV HYPOGLYCEMIA-SEE COMMENTS; Start 07/30/17 at 13:45; Stop 08/04/17 at 17:58; Status DC Glucagon (Glucagon Inj) 1 mg UNSCH PRN OTHER HYPOGLYCEMIA-SEE COMMENTS; Start 07/30/17 at 13:45; Stop 08/04/17 at 17:59; Status DC Dextrose/Sodium Chloride 1,000 ml @ 40 mls/hr Q24H IV Last administered on 13:45; Start 07/30/17 at 13:45; Stop 07/30/17 at 21:47; Status DC Acetaminophen (Tylenol) 500 mg Q4H PRN PO FEVER Last administered on 08/01/17 14:42; Start 07/30/17 at 16:15 Azithromycin (Zithromax) 500 mg DAILY PO Last administered on 08/05/17 08:53; Start 07/31/17 at 09:00; Stop 08/05/17 at 13:00; Status DC Potassium Chloride/Sodium Chloride 1,000 ml @ 42 mls/hr [id number] IV Last administered on 07/31/17 10:35; Start 07/31/17 at 09:45; Stop 08/01/17 at 09:33 ; Status DC Potassium Chloride/Sodium Chloride 1,000 ml @ 42 mls/hr [id number] IV Last administered on 08/01/17 17:42; Start 08/01/17 at 16:15; Stop 08/02/17 at 16:03 ; Status DC Methylprednisolone Sodium Succinate (SoluMEDROL INJ) 40 mg BID IV Last administered on 08/03/17 09:17; Start 08/01/17 at 21:00; Stop 08/03/17 at 11:56 ; Status DC Insulin Detemir (Levemir Inj) 5 units BID SQ Last administered on 08/03/17 09: 00; Start 08/02/17 at 13:45; Stop 08/03/17 at 09:07; Status DC Budesonide/ Formoterol Fumarate (Symbicort 160-4.5 Inh) 2 puff Q12HR INH Last administered on 08/06/17 20:20; Start 08/02/17 at 21:00 Guaifenesin (Robitussin Liq) 200 mg Q4H PRN PO COUGH; Start 08/03/17 at 09:00 Insulin Detemir (Levemir Inj) 7 units BID SQ Last administered on 08/04/17 08: 29; Start 08/03/17 at 21:00; Stop 08/04/17 at 08:51; Status DC Enoxaparin Sodium (Lovenox Inj) 30 mg Q24H SQ Last administered on 08/06/17 09 :51; Start 08/03/17 at 10:00 Methylprednisolone Sodium Succinate (SoluMEDROL INJ) 40 mg DAILY IV Last administered on 08/05/17 08:54; Start 08/04/17 at 07:00; Stop 08/05/17 at 09:13 ; Status DC Albuterol/ Ipratropium (Duoneb Neb) 1 ampule BID NEB INH Last administered on 08/07/17 07:46; Start 08/03/17 at 20:00 Clonidine (Catapres) 0.1 mg Q6H PRN PO SBP>160, DBP>90 Last administered on 00:03; Start 08/03/17 at 23:15 Insulin Detemir (Levemir Inj) 10 units BID SQ Last administered on 08/06/17 20 :20; Start 08/04/17 at 09:00 Docusate Sodium (Colace) 100 mg BID PRN PO CONSTIPATION Last administered on 18:03; Start 08/04/17 at 08:45 Amlodipine Besylate (Norvasc) 5 mg DAILY PO Last administered on 08/06/17 09: 51; Start 08/04/17 at 09:00 Carvedilol (Coreg) 6.25 mg Q12HR PO Last administered on 08/06/17 20:19; Start 08/04/17 at 09:00 Aspirin (Aspirin Chew) 81 mg DAILY CHEW Last administered on 08/06/17 09:50; Start 08/04/17 at 09:00 Miscellaneous Medication ([facility] [place] [facility] Information) Please discontinue previ... ONCE ONCE .XX Last administered on 08/04/17 18:00; Start 08/04/17 at 18:00; Stop 08/04/17 at 18:01; Status DC Dextrose (D50w (Vial) Inj) 50 ml UNSCH PRN IV PUSH HYPOGLYCEMIA - SEE COMMENTS ; Start 08/04/17 at 18:00 Glucagon (Glucagon Inj) 1 mg UNSCH PRN OTHER HYPOGLYCEMIA-SEE COMMENTS; Start 08/04/17 at 18:00 Insulin Aspart (NovoLOG SUPPLEMENTAL SCALE) 1 ACHS SLIDING SCALE SQ Last administered on 08/06/17 21:00; Start 08/04/17 at 17:57 Methylprednisolone Sodium Succinate (SoluMEDROL INJ) 20 mg DAILY IV Last administered on 08/06/17 10:25; Start 08/06/17 at 10:00 Furosemide (Lasix Inj) 40 mg DAILY IV PUSH Last administered on 08/06/17 09:53 ; Start 08/06/17 at 09:00; Status Future Hold A/P Assessment and Plan A/P 1. Unresponsiveness: Secondary to severe hypoglycemia; this has resolved. 2. Acute exacerbation of chronic systolic congestive heart failure: Continue diuresis with Lasix. Caution with IV fluids. resumed Coreg-hold losartan for now due to renal insufficiency and low- normal BP's. 3. diabetes mellitus; uncontrolled now- continue levemir and continue with accu- checks. the blood sugar level expected to improve as the steroids being tapered off. 4. renal insufficiency with unknown duration- likely chronic- will monitor renal function- nephrology following. 5. Leukocytosis: due to pneumonia and steroids- afebrile- will monitor. 7. CODE STATUS: DO NOT RESUSCITATE. 8. Palliative care consult appreciated. 9. Pneumonia: Continue antibiotics.will taper down the oxygen- Appreciate pulmonology recommendations.ST consulted for swallow evaluation; started on puree diet. 10.hypertension; has much improved; continue amlodipine and coreg- will monitor and adjust the regimen as needed. DVT prophylaxis with subq lovenox. consulted PT. Discharge Planning still on four liters of oxygen via N/C. possible dc to SNF within the next two days if clinically improves. Arya Garcia MD Aug 07, 2017 08:45
[2017-08-07] MEDS: ENOXAPARIN SODIUM 30 MG/0.3 ML SYRINGE SQ SCH (09:26)
[2017-08-07] MEDS: amLODIPine BESYLATE 5 MG TAB PO SCH (09:26)
[2017-08-07] MEDS: CARVEDILOL 6.25 MG TAB PO SCH ×2 (09:26→20:40)
[2017-08-07] MEDS: ASPIRIN 81 MG CHEW TAB CHEW SCH (09:26)
[2017-08-07] MEDS: methylPREDNISolone SOD SUCC 40 MG/1 ML VIAL IV SCH (09:27)
[2017-08-07] MEDS: SODIUM CHLORIDE 0.9% FLUSH 10 ML FLUSH IV FLUSH SCH ×2 (09:28→20:40)
[2017-08-07] MEDS: MEDIUM DOSE INSULIN NOVOLOG SUPPLEMENTAL SCALE SQ SCH ×4 (09:28→17:00)
[2017-08-07] MEDS: INSULIN DETEMIR 100 UNITS/ML VIAL SQ SCH ×2 (09:29→20:41)
[2017-08-07] MEDS: BUDESONIDE-FORMOTEROL 160/4.5 MCG INHALER INH SCH ×2 (09:30→20:37)
--- NOTE | 2017-08-07 12:54 | HHI.NPPN ---
Subjective History of Present Illness 72-year-old with history of confusion, pneumonia and chronic kidney disease with MARTINA Review of Systems General Constitutional: Fatigue Objective Data Data Vital Signs Date Time Temp Pulse Resp B/P (MAP) Pulse Ox O2 Delivery O2 Flow Rate FiO2 08/07/17 12:48 66 08/07/17 12:06 92 Nasal Cannula 4.50 08/07/17 11:00 98.8 70 14 120/59 (79) 92 08/07/17 11:00 70 08/07/17 10:03 69 08/07/17 08:15 Nasal Cannula 4.00 08/07/17 08:07 66 08/07/17 07:49 97 Nasal Cannula 4.00 08/07/17 07:28 98.5 61 14 139/65 (89) 99 08/07/17 06:07 60 08/07/17 05:17 65 08/07/17 04:07 60 08/07/17 03:45 61 08/07/17 03:00 97.8 64 16 103/54 (70) 92 08/07/17 03:00 Nasal Cannula 5.00 08/07/17 02:57 65 08/07/17 01:23 68 08/07/17 00:00 64 08/06/17 23:48 98.6 63 18 129/60 (83) 98 08/06/17 23:00 75 08/06/17 23:00 Nasal Cannula 4.00 08/06/17 22:23 71 08/06/17 21:29 69 08/06/17 20:08 94 Nasal Cannula 4.00 08/06/17 20:00 65 08/06/17 19:00 61 08/06/17 19:00 Nasal Cannula 4.00 08/06/17 19:00 98.2 61 18 137/76 (96) 96 08/06/17 18:40 140 08/06/17 17:00 96 08/06/17 16:00 79 08/06/17 15:00 89 08/06/17 15:00 Nasal Cannula 6.00 08/06/17 15:00 98.4 89 18 131/70 (90) 97 08/06/17 14:00 96 -: 08/04/17 0607 08/07/17 0540 Physical Exam General Appearance: Well Developed Neck Neck Exam: Neck Supple Pulmonary Resp Exam: Decreased Bases Cardiology CV Exam: Regular Gastrointestinal/Abdomen GI Exam: Soft, Non-Tender Extremeties Extremities Exam: No Edema Neurologic Neuro Exam: Alert Assessment/Plan Problem List: (1) Acute renal failure ICD Codes: N17.9 - Acute kidney failure, unspecified Plan: Creatinine1.7-2 range ultrasound showed chronic kidney disease with bilateral renal cysts Cr 1.9 possible Pneumonia on Ceftriaxone Lasix on hold has CKD watch diet, Follow up as out patient is legally blind live in Rehab at [facility] Avoid nephrotoxic Follow BMP (2) UTI (urinary tract infection) ICD Codes: N39.0 - Urinary tract infection, site not specified Plan: Her urine culture negative (3) Chronic systolic CHF (congestive heart failure) ICD Codes: I50.22 - Chronic systolic (congestive) heart failure Plan: Echocardiogram is ordered (4) Hypoglycemia ICD Codes: E16.2 - Hypoglycemia, unspecified Plan: Continue to monitor Sam Pike MD Aug 07, 2017 12:54
--- NOTE | 2017-08-07 18:27 | HHI.PR ---
Subjective Remarks Feels better . On O 2 4 L. Will need O2 at [facility]. Renal profile stable. No SOB at Rest. CT shows basal infiltrates. No fever Objective Vital Signs Date Time Temp Pulse Resp B/P (MAP) Pulse Ox O2 Delivery O2 Flow Rate FiO2 08/07/17 17:07 69 08/07/17 16:09 60 08/07/17 15:21 98.8 63 15 124/66 (85) 93 08/07/17 15:21 93 Nasal Cannula 4.50 08/07/17 15:00 61 08/07/17 14:44 62 08/07/17 13:14 64 08/07/17 12:48 66 08/07/17 12:06 92 Nasal Cannula 4.50 08/07/17 11:00 98.8 70 14 120/59 (79) 92 08/07/17 11:00 70 08/07/17 10:03 69 08/07/17 08:15 Nasal Cannula 4.00 08/07/17 08:07 66 08/07/17 07:49 97 Nasal Cannula 4.00 08/07/17 07:28 98.5 61 14 139/65 (89) 99 08/07/17 06:07 60 08/07/17 05:17 65 08/07/17 04:07 60 08/07/17 03:45 61 08/07/17 03:00 97.8 64 16 103/54 (70) 92 08/07/17 03:00 Nasal Cannula 5.00 08/07/17 02:57 65 08/07/17 01:23 68 08/07/17 00:00 64 08/06/17 23:48 98.6 63 18 129/60 (83) 98 08/06/17 23:00 75 08/06/17 23:00 Nasal Cannula 4.00 08/06/17 22:23 71 08/06/17 21:29 69 08/06/17 20:08 94 Nasal Cannula 4.00 08/06/17 20:00 65 08/06/17 19:00 61 08/06/17 19:00 Nasal Cannula 4.00 08/06/17 19:00 98.2 61 18 137/76 (96) 96 08/06/17 18:40 140 I/O 08/06/17 08/06/17 08/06/17 08/07/1720/17 9/20/17 07:00 15:00 23:00 07:00 15:00 23:00 Intake Total 560 ml 450 ml 580 ml 720 ml Output Total 460 ml 350 ml 175 ml Balance 100 ml 450 ml 230 ml 545 ml Intake Oral 360 ml 450 ml 480 ml 720 ml IV Total 200 ml 100 ml Output Urine Total 460 ml 350 ml 175 ml # Voids 3 # Bowel Movements 1 0 0 Result Diagram: 08/04/17 0607 08/07/17 0540 Objective Remarks GENERAL: This is a well-nourished, well-developed patient, in no distress. CARDIOVASCULAR: Irregular rate and rhythm without murmurs, gallops, or rubs. RESPIRATORY: No wheezes, diminished breath sounds bilaterally.Occ Basal crackles GASTROINTESTINAL: Abdomen soft, non-tender,nondistended. Normal active bowel sounds MUSCULOSKELETAL: Extremities without clubbing, cyanosis,and has no edema. NEURO: Alert & Oriented. Moves all ext x4 Assessment and Plan Assessment and Plan Assessment and Plan Disease Oriented Problem List: (1) Hyperlipemia (2) Hypertension (3) Acute renal failure (4) Hypoglycemia (5) UTI (urinary tract infection) (6) CHF exacerbation (7) Chronic systolic CHF (congestive heart failure) (8) Pneumonia, Aspiration Symptom Scale: (1) Confusion 0-10 Scale: Unable to quantify (2) Anorexia 0-10 Scale: Unable to quantify (3) Cough 0-10 Scale: Unable to quantify (4) Dyspnea and respiratory abnormalities Plan : 1. Ceftin 500 mg bid X 7 days 2. Increase po Liquids 3. Hold lasix 4. BMP in am 5. Nebs qid , Duoneb. 6. D/C BiPAP at HS 7. Wean O2 to N/C 3 L Rohan Gates MD Aug 07, 2017 18:27
[2017-08-07] MEDS ORDERED: SODIUM CHLORID 0.9% 500 ML INJ 500 ML IV ONE (18:45)
[2017-08-07] MEDS: CEFUROXIME AXETIL 500 MG TAB PO SCH (20:40)
[2017-08-08] VITALS (17 sets, daily range): BP systolic 95–144; BP diastolic 55–70; PULSE 60–73; RESP 18–20; TEMP 98–98.4; O2SAT 91–96
[2017-08-08 06:03] LABS: AUTOMATED NEUTROPHIL # 12.7 TH/MM3 (1.8-7.7); BASOPHIL % 0.1 % (0.0-2.0); EOSINOPHIL # 0.1 TH/MM3 (0-0.4); EOSINOPHIL % 0.4 % (0.0-4.0); HEMATOCRIT 35.1 % (35.0-46.0); HEMO FLAGS DIFF FINAL; LYMPH % 5.9 % (9.0-44.0); LYMPHOCYTE # 0.8 TH/MM3 (1.0-4.8); MEAN CELL VOLUME 89.6 FL (80.0-100.0); MEAN CORPUSCULAR HEMOGLOBIN 29.2 PG (27.0-34.0); MEAN CORPUSCULAR HGB CONC 32.6 % (32.0-36.0); MONO % 3.8 % (0.0-8.0); NEUT % 89.8 % (16.0-70.0); PLATELET COUNT 224 TH/MM3 (150-450); RED BLOOD COUNT 3.92 MIL/MM3 (4.00-5.30); RED CELL DISTRIBUTION WIDTH 13.9 % (11.6-17.2); WHITE BLOOD COUNT 14.2 TH/MM3 (4.0-11.0)
[2017-08-08 06:33] LABS: BICARBONATE 27.6 MEQ/L (21.0-32.0); POTASSIUM 3.8 MEQ/L (3.5-5.1)
[2017-08-08] MEDS: MEDIUM DOSE INSULIN NOVOLOG SUPPLEMENTAL SCALE SQ SCH ×2 (08:00→11:52)
--- NOTE | 2017-08-08 08:47 | HHI.PR ---
Subjective Remarks resting comfortably with no distress. denies sob or chest pain. oxygen is down to three liters via N/C. no new complaints. d/w the RN. Objective Vitals Vital Signs Date Time Temp Pulse Resp B/P (MAP) Pulse Ox O2 Delivery O2 Flow Rate FiO2 08/08/17 08:00 Nasal Cannula 3.00 08/08/17 07:15 98.0 65 19 144/66 (92) 96 08/08/17 07:15 96 Nasal Cannula 4.00 08/08/17 07:15 65 08/08/17 06:00 60 08/08/17 05:00 60 08/08/17 04:00 98.4 63 18 95/55 (68) 94 08/08/17 04:00 60 08/08/17 04:00 96 Nasal Cannula 4.00 08/08/17 03:00 60 08/08/17 02:00 66 08/08/17 01:00 60 08/08/17 00:00 98.4 63 20 118/70 (86) 94 08/08/17 00:00 64 08/08/17 00:00 96 Nasal Cannula 4.00 08/07/17 23:00 60 08/07/17 22:00 62 08/07/17 21:00 70 08/07/17 20:19 93 Nasal Cannula 5.00 08/07/17 20:00 96 Nasal Cannula 4.00 08/07/17 20:00 98.5 63 20 116/60 (78) 96 08/07/17 20:00 60 08/07/17 17:07 69 08/07/17 16:09 60 08/07/17 15:21 98.8 63 15 124/66 (85) 93 08/07/17 15:21 93 Nasal Cannula 4.50 08/07/17 15:00 61 08/07/17 14:44 62 08/07/17 13:14 64 08/07/17 12:48 66 08/07/17 12:06 92 Nasal Cannula 4.50 08/07/17 11:00 98.8 70 14 120/59 (79) 92 08/07/17 11:00 70 08/07/17 10:03 69 I/O 08/07/17 08/07/17 08/07/17 08/08/17 08/08/17 08/08/17 07:00 15:00 23:00 07:00 15:00 23:00 Intake Total 580 ml 720 ml 320 ml Output Total 350 ml 175 ml Balance 230 ml 545 ml 320 ml Intake Oral 480 ml 720 ml 320 ml IV Total 100 ml Output Urine Total 350 ml 175 ml # Voids 3 # Bowel Movements 0 0 Result Diagram: 08/08/17 0503 08/08/17 0503 Imaging Last Impressions Chest X-Ray 08/03/17 0600 Signed Impressions: Service Date/Time: Thursday, August 03, 2017 05:21 - CONCLUSION: 1. Hypoinflation with bibasilar atelectatic changes. Associated effusion on the left. 2. Slight improved aeration right base. Left base is stable. James Cross MD Chest CT 08/01/17 1916 Signed Impressions: Service Date/Time: July 21:11 - CONCLUSION: Right perihilar and bibasilar pneumonia. Micheal Oliva MD Renal Ultrasound 08/01/17 0000 Signed Impressions: Service Date/Time: July 19:59 - CONCLUSION: No acute abnormality demonstrated. Benign-appearing bilateral renal cysts. Micheal Oliva MD Objective Remarks GENERAL: This is a well-nourished, well-developed patient, in no apparent distress. CARDIOVASCULAR: Regular rate and regular rhythm without murmurs, gallops, or rubs. RESPIRATORY: better air entry bilaterally. GASTROINTESTINAL: Abdomen soft, non-tender, nondistended. Normal, active bowel sounds MUSCULOSKELETAL: Extremities without clubbing, cyanosis, or edema. NEURO: Alert & Oriented x4 to person, place, time, situation. Moves all ext x4 Procedures None Medications and IVs Current Medications Dextrose (D50w (Vial) Inj) 50 ml UNSCH PRN IV HYPOGLYCEMIA-SEE COMMENTS; Start 07/29/17 at 22:30; Stop 07/30/17 at 00:16; Status DC Dextrose/Sodium Chloride 1,000 ml @ 75 mls/hr [id number] IV Last administered on 07/29/17 22:42; Start 07/29/17 at 22:16; Stop 07/30/17 at 00:17; Status DC Furosemide (Lasix Inj) 40 mg ONCE ONCE IV PUSH Last administered on 07/29/17 22:45; Start 07/29/17 at 22:30; Stop 07/29/17 at 22:31; Status DC Sodium Chloride (NS Flush) 2 ml UNSCH PRN IVF FLUSH AFTER USING IV ACCESS; Start 07/29/17 at 22:30; Stop 07/30/17 at 00:17; Status DC Methylprednisolone Sodium Succinate (SoluMEDROL INJ) 125 mg ONCE ONCE IVP Last administered on 07/29/17 22:43; Start 07/29/17 at 22:30; Stop 07/29/17 at 22:31; Status DC Albuterol/ Ipratropium (Duoneb Neb) 1 ampule Q15M INH Last administered on 07/29 22:59; Start 07/29/17 at 22:30; Stop 07/29/17 at 23:01; Status DC Dextrose (D50w (Syr) Inj) 50 ml STK-MED ONCE .ROUTE Last administered on 23:06; Start 07/29/17 at 23:05; Stop 07/29/17 at 23:06; Status DC Ceftriaxone Sodium 1000 mg/ Sodium Chloride 100 ml @ 200 mls/hr ONCE ONCE IV Last administered on 07/30/17 00:01; Start 07/30/17 at 00:00; Stop 07/30/17 at 00:29; Status DC Azithromycin 500 mg/Sodium Chloride 250 ml @ 250 mls/hr ONCE ONCE IV Last administered on 07/30/17 00:39; Start 07/30/17 at 00:00; Stop 07/30/17 at 00:59 ; Status DC Sodium Chloride (NS Flush) 2 ml UNSCH PRN IV FLUSH FLUSH AFTER USING IV ACCESS Last administered on 07/30/17 16:52; Start 07/30/17 at 00:15 Sodium Chloride (NS Flush) 2 ml BID IV FLUSH Last administered on 08/07/17 09: 28; Start 07/30/17 at 09:00 Naloxone HCl (Narcan Inj) 0.4 mg UNSCH PRN IV SEE LABEL COMMENTS; Start at 00:15 Dextrose (D50w (Vial) Inj) 50 ml UNSCH PRN IV HYPOGLYCEMIA-SEE COMMENTS; Start 07/30/17 at 00:15; Stop 07/30/17 at 13:43; Status DC Glucagon (Glucagon Inj) 1 mg UNSCH PRN OTHER HYPOGLYCEMIA-SEE COMMENTS; Start 07/30/17 at 00:15; Stop 07/30/17 at 13:43; Status DC Albuterol/ Ipratropium (Duoneb Neb) 1 ampule Q6HR NEB NEB Last administered on 08/02/17 21:01; Start 07/30/17 at 04:00; Stop 08/03/17 at 03:59; Status DC Albuterol/ Ipratropium (Duoneb Neb) 1 ampule Q2HR NEB PRN NEB wheezing; Start 07/30/17 at 00:15 Dextrose 500 ml @ 42 mls/hr [id number] IV Last administered on 07/30/17 01:00; Start 07/30/17 at 00:30; Stop 07/30/17 at 13:43; Status DC Furosemide (Lasix Inj) 40 mg BID@09,18 IV PUSH Last administered on 08/05/17 08:54; Start 07/30/17 at 18:00; Stop 08/05/17 at 13:01; Status DC Furosemide (Lasix Inj) 40 mg ONCE ONCE IV PUSH Last administered on 07/30/17 12:15; Start 07/30/17 at 11:15; Stop 07/30/17 at 11:16; Status DC Ceftriaxone Sodium 1000 mg/ Sodium Chloride 100 ml @ 200 mls/hr Q24H IV Last administered on 08/06/17 22:00; Start 07/30/17 at 22:00; Stop 08/07/17 at 18:28 ; Status DC Insulin Aspart (NovoLOG SUPPLEMENTAL SCALE) 1 ACHS SLIDING SCALE SQ Last administered on 08/04/17 12:00; Start 07/30/17 at 16:00; Stop 08/04/17 at 17:58 ; Status DC Dextrose (D50w (Vial) Inj) 50 ml UNSCH PRN IV HYPOGLYCEMIA-SEE COMMENTS; Start 07/30/17 at 13:45; Stop 08/04/17 at 17:58; Status DC Glucagon (Glucagon Inj) 1 mg UNSCH PRN OTHER HYPOGLYCEMIA-SEE COMMENTS; Start 07/30/17 at 13:45; Stop 08/04/17 at 17:59; Status DC Dextrose/Sodium Chloride 1,000 ml @ 40 mls/hr Q24H IV Last administered on 13:45; Start 07/30/17 at 13:45; Stop 07/30/17 at 21:47; Status DC Acetaminophen (Tylenol) 500 mg Q4H PRN PO FEVER Last administered on 08/01/17 14:42; Start 07/30/17 at 16:15 Azithromycin (Zithromax) 500 mg DAILY PO Last administered on 08/05/17 08:53; Start 07/31/17 at 09:00; Stop 08/05/17 at 13:00; Status DC Potassium Chloride/Sodium Chloride 1,000 ml @ 42 mls/hr [id number] IV Last administered on 07/31/17 10:35; Start 07/31/17 at 09:45; Stop 08/01/17 at 09:33 ; Status DC Potassium Chloride/Sodium Chloride 1,000 ml @ 42 mls/hr [id number] IV Last administered on 08/01/17 17:42; Start 08/01/17 at 16:15; Stop 08/02/17 at 16:03 ; Status DC Methylprednisolone Sodium Succinate (SoluMEDROL INJ) 40 mg BID IV Last administered on 08/03/17 09:17; Start 08/01/17 at 21:00; Stop 08/03/17 at 11:56 ; Status DC Insulin Detemir (Levemir Inj) 5 units BID SQ Last administered on 08/03/17 09: 00; Start 08/02/17 at 13:45; Stop 08/03/17 at 09:07; Status DC Budesonide/ Formoterol Fumarate (Symbicort 160-4.5 Inh) 2 puff Q12HR INH Last administered on 08/07/17 20:37; Start 08/02/17 at 21:00 Guaifenesin (Robitussin Liq) 200 mg Q4H PRN PO COUGH; Start 08/03/17 at 09:00 Insulin Detemir (Levemir Inj) 7 units BID SQ Last administered on 08/04/17 08: 29; Start 08/03/17 at 21:00; Stop 08/04/17 at 08:51; Status DC Enoxaparin Sodium (Lovenox Inj) 30 mg Q24H SQ Last administered on 08/07/17 09 :26; Start 08/03/17 at 10:00 Methylprednisolone Sodium Succinate (SoluMEDROL INJ) 40 mg DAILY IV Last administered on 08/05/17 08:54; Start 08/04/17 at 07:00; Stop 08/05/17 at 09:13 ; Status DC Albuterol/ Ipratropium (Duoneb Neb) 1 ampule BID NEB INH Last administered on 08/07/17 07:46; Start 08/03/17 at 20:00; Stop 08/07/17 at 19:59; Status DC Clonidine (Catapres) 0.1 mg Q6H PRN PO SBP>160, DBP>90 Last administered on 00:03; Start 08/03/17 at 23:15 Insulin Detemir (Levemir Inj) 10 units BID SQ Last administered on 08/07/17 20 :41; Start 08/04/17 at 09:00 Docusate Sodium (Colace) 100 mg BID PRN PO CONSTIPATION Last administered on 18:03; Start 08/04/17 at 08:45 Amlodipine Besylate (Norvasc) 5 mg DAILY PO Last administered on 08/07/17 09: 26; Start 08/04/17 at 09:00 Carvedilol (Coreg) 6.25 mg Q12HR PO Last administered on 08/07/17 20:40; Start 08/04/17 at 09:00 Aspirin (Aspirin Chew) 81 mg DAILY CHEW Last administered on 08/07/17 09:26; Start 08/04/17 at 09:00 Miscellaneous Medication ([facility]) Please discontinue previ... ONCE ONCE .XX Last administered on 08/04/17 18:00; Start 08/04/17 at 18:00; Stop 08/04/17 at 18:01; Status DC Dextrose (D50w (Vial) Inj) 50 ml UNSCH PRN IV PUSH HYPOGLYCEMIA - SEE COMMENTS ; Start 08/04/17 at 18:00 Glucagon (Glucagon Inj) 1 mg UNSCH PRN OTHER HYPOGLYCEMIA-SEE COMMENTS; Start 08/04/17 at 18:00 Insulin Aspart (NovoLOG SUPPLEMENTAL SCALE) 1 ACHS SLIDING SCALE SQ Last administered on 08/07/17 17:00; Start 08/04/17 at 17:57 Methylprednisolone Sodium Succinate (SoluMEDROL INJ) 20 mg DAILY IV Last administered on 08/07/17 09:27; Start 08/06/17 at 10:00 Furosemide (Lasix Inj) 40 mg DAILY IV PUSH Last administered on 08/06/17 09:53 ; Start 08/06/17 at 09:00; Status Future Hold Cefuroxime Axetil (Ceftin) 500 mg Q12HR PO Last administered on 08/07/17 20:40 ; Start 08/07/17 at 21:00 Sodium Chloride 500 ml @ 50 mls/hr ONCE ONCE IV Last administered on 18:45; Start 08/07/17 at 18:45; Stop 08/08/17 at 04:44; Status DC A/P Assessment and Plan A/P 1. Unresponsiveness: Secondary to severe hypoglycemia; this has resolved. 2. Acute exacerbation of chronic systolic congestive heart failure: Continue diuresis with Lasix upon discharge.. Caution with IV fluids. resumed Coreg-hold losartan for now due to renal insufficiency and low- normal BP's. will consider resuming losartan as outpatient if BP and renal function stable; will defer to PCP. 3. diabetes mellitus; uncontrolled now- continue levemir and continue with accu- checks. the blood sugar level expected to improve as the steroids being tapered off. 4. renal insufficiency with unknown duration- likely chronic- will monitor renal function- nephrology following. 5. Leukocytosis: due to pneumonia and steroids- afebrile- will monitor. 7. CODE STATUS: DO NOT RESUSCITATE. 8. Palliative care consult appreciated. 9. Pneumonia: Continue antibiotics.continue oxygen- Appreciate pulmonology recommendations.ST consulted for swallow evaluation; started on puree diet. 10.hypertension; has much improved; continue amlodipine and coreg- will monitor and adjust the regimen as needed. DVT prophylaxis with subq lovenox. consulted PT. Discharge Planning tapered down the oxygen to three liters via N/C. possible dc to rehab later today if stable. see med list. f/u; pcp and pulmonary. d/w the patient and RN. time spent 35 min. Arya Garcia MD Aug 08, 2017 08:47
[2017-08-08] MEDS ORDERED: CARV6.25 PO (08:53)
[2017-08-08] MEDS ORDERED: CEFU1TAB20 PO (08:53)
[2017-08-08] MEDS ORDERED: PRED5TAB PO (08:53)
[2017-08-08] MEDS ORDERED: SYMB160A INH (08:53)
--- NOTE | 2017-08-08 08:54 | HHI.DCPOC ---
Discharge Care Plan Diagnosis: (1) Pneumonia Your Health Problems Are: Cough Shortness of Breath Goals to Promote Your Health * To prevent worsening of your condition and complications * To maintain your health at the optimal level Directions to Meet Your Goals Take your medications as prescribed Follow your dietary instruction Follow activity as directed Keep your appointments as scheduled Take your immunizations and boosters as scheduled If your symptoms worsen call your PCP, if no PCP go to Urgent Care Center or Emergency Room Smoking is Dangerous to Your Health. Avoid second hand smoke Call the 24-hour hour crisis hotline for domestic abuse at Arya Garcia MD Aug 08, 2017 08:54
--- NOTE | 2017-08-08 08:55 | HHI.DS ---
Discharge Summary Admission Date Jul 30, 2017 at 00:11 Discharge Date: Aug 08, 2017 Admitting Diagnosis hypoglycemia, chf exacerbation, pneumonia (1) CHF exacerbation ICD Code: I50.9 - Heart failure, unspecified Diagnosis: Principal (2) Hypoglycemia ICD Code: E16.2 - Hypoglycemia, unspecified Diagnosis: Principal (3) UTI (urinary tract infection) ICD Code: N39.0 - Urinary tract infection, site not specified Diagnosis: Secondary (4) Acute renal failure ICD Code: N17.9 - Acute kidney failure, unspecified Diagnosis: Principal Procedures None Brief History - From Admission History from patient, ER physician communication, and review of [place] [facility] notes. Patient reported that she actually does not remember anything. She does not know why she is in hospital. She thinks that she might have passed out. Per EMS communication and ER communication, patient was brought in from the [place] [facility] because of altered mental status/unresponsiveness. Patient was found to have blood sugars in the 20s upon EMS arrival. She was also in respiratory distress for which they had to put her on nebulizer treatments and on BiPAP upon transport. By the time patient arrives ER, patient's blood sugars were improving initially. Patient also reports of one week of coughing. She denies shortness of breath associated with it. Also denies fever. She states that her cough was productive of whitish phlegm and that it has changed her voice. She denies any nausea or vomiting. Denies diarrhea. Denies any chest pains or abdominal pains. Denies any history of burning or pain on urination. She states that she is diabetic and takes pills. She also takes some insulin as needed. In the emergency room, patient's workup revealed elevated BNP for which Lasix 40 mg IV was given as well. She was then placed on Velasquez catheter and currently the Velasquez bag has 1400 cc of urine. Patient was also off BiPAP by the time I see her. She was saturating about 95% on 2 L nasal cannula I then after this Lasix treatment. CBC/BMP: 08/08/17 0503 08/08/17 0503 Significant Findings Laboratory Tests Test 08/07/17 05:40 08/08/17 05:03 Blood Urea Nitrogen 77 MG/DL (7-18) 77 MG/DL (7-18) Creatinine 1.98 MG/DL (0.50-1.00) 1.95 MG/DL (0.50-1.00) Random Glucose 198 MG/DL (74-106) 208 MG/DL (74-106) Estimat Glomerular Filtration Rate 25 ML/MIN (>89) 25 ML/MIN (>89) White Blood Count 14.2 TH/MM3 (4.0-11.0) Red Blood Count 3.92 MIL/MM3 (4.00-5.30) Hemoglobin 11.5 GM/DL (11.6-15.3) Neutrophils (%) (Auto) 89.8 % (16.0-70.0) Lymphocytes (%) (Auto) 5.9 % (9.0-44.0) Neutrophils # (Auto) 12.7 TH/MM3 (1.8-7.7) Lymphocytes # (Auto) 0.8 TH/MM3 (1.0-4.8) Imaging Last Impressions Chest X-Ray 08/03/17 0600 Signed Impressions: Service Date/Time: Thursday, August 03, 2017 05:21 - CONCLUSION: 1. Hypoinflation with bibasilar atelectatic changes. Associated effusion on the left. 2. Slight improved aeration right base. Left base is stable. James Cross MD Chest CT 08/01/17 1916 Signed Impressions: Service Date/Time: July 21:11 - CONCLUSION: Right perihilar and bibasilar pneumonia. Micheal Oliva MD Renal Ultrasound 08/01/17 0000 Signed Impressions: Service Date/Time: July 19:59 - CONCLUSION: No acute abnormality demonstrated. Benign-appearing bilateral renal cysts. Micheal Oliva MD PE at Discharge GENERAL: This is a well-nourished, well-developed patient, in no apparent distress. CARDIOVASCULAR: Regular rate and regular rhythm without murmurs, gallops, or rubs. RESPIRATORY: better air entry bilaterally. GASTROINTESTINAL: Abdomen soft, non-tender, nondistended. Normal, active bowel sounds MUSCULOSKELETAL: Extremities without clubbing, cyanosis, or edema. NEURO: Alert & Oriented x4 to person, place, time, situation. Moves all ext x4 Hospital Course 1. Unresponsiveness: Secondary to severe hypoglycemia; this has resolved. 2. Acute exacerbation of chronic systolic congestive heart failure: Continue diuresis with Lasix upon discharge.. Caution with IV fluids. resumed Coreg-hold losartan for now due to renal insufficiency and low- normal BP's. will consider resuming losartan as outpatient if BP and renal function stable; will defer to PCP. 3. diabetes mellitus; uncontrolled now- continue levemir and continue with accu- checks. the blood sugar level expected to improve as the steroids being tapered off. 4. renal insufficiency with unknown duration- likely chronic- will monitor renal function- nephrology following. 5. Leukocytosis: due to pneumonia and steroids- afebrile- will monitor. 7. CODE STATUS: DO NOT RESUSCITATE. 8. Palliative care consult appreciated. 9. Pneumonia: Continue antibiotics.continue oxygen- Appreciate pulmonology recommendations.ST consulted for swallow evaluation; started on puree diet. 10.hypertension; has much improved; continue amlodipine and coreg- will monitor and adjust the regimen as needed. DVT prophylaxis with subq lovenox. consulted PT. Pt Condition on Discharge: Fair Discharge Disposition: Discharge to SNF Discharge Time: > 30 minutes Discharge Instructions DIET: Follow Instructions for: Heart Healthy Diet, Diabetic Diet Speech Therapy-Diet Recommends: Pureed Activities you can perform: Regular-No Restrictions Follow up Referrals: Nephrology PCP Follow-up Pulmonology New Medications: Prednisone (Prednisone) 5 Mg Tab 5 MG PO DIRECTED for copd for 10 Days, TAB 0 Refills 40 mg po daily for two days then 30 mg po daily for two days then 20 mg po daily for two days then 10 mg po daily for two days then 5 mg po daily for two days then stop. Budesonide-Formoterol Inh (Symbicort Inh) 160-4.5 Mcg/Act Aero 2 PUFF INH Q12HR for copd, #1 INHALER 0 Refills Carvedilol (Coreg) 6.25 Mg Tab 6.25 MG PO Q12HR for hypertension for 30 Days, TAB 0 Refills Cefuroxime (Cefuroxime) 500 Mg Tab 500 MG PO Q12HR for pneumonia for 5 Days, TAB 0 Refills Continued Medications: Acetaminophen (Tylenol) 325 Mg Tab 650 MG PO Q6H PRN for PAIN 1 TO 10 AND/OR AGITATION, TAB 0 Refills Amlodipine (Amlodipine) 2.5 Mg Tab 2.5 MG PO DAILY for Blood Pressure Management, #30 TAB 0 Refills Aspirin (Aspirin Low Dose) 81 Mg Chew 81 MG CHEW DAILY, TAB 0 Refills Atorvastatin (Atorvastatin) 40 Mg Tab 40 MG PO HS for Cholesterol Management, #30 TAB 0 Refills Dextromethorphan Liq (Tussin Cough Liq) 15 Mg/5 Ml Syp 10 ML PO Q8H PRN for COUGH, #1 BOTTLE 0 Refills Docusate Sodium (Docusate Sodium) 100 Mg Cap 100 MG PO HS for Prevent Constipation, #60 CAP 0 Refills Famotidine (Famotidine) 20 Mg Tab 20 MG PO HS, #60 TAB 0 Refills Furosemide (Lasix) 20 Mg Tab 20 MG PO DAILY, #30 TAB 0 Refills Insulin Glargine Inj (Lantus Inj) 1,000 Unit/10 Ml Vial 40 UNITS SQ DAILY for Blood Sugar Management, VIAL 0 Refills Insulin Lispro (Human) Inj (Humalog Inj) 1,000 Unit/10 Ml Vial 4-10 UNITS SQ ACHS for Blood Sugar Management, #1 VIAL 0 Refills Max dose at bedtime:( )units; sugars < 70,(0)units; sugars 150-199,(2)units; sugars 200-249,(4)units; sugars 250-299,(7)units; sugars 300-349,(10)units; sugars more than 349,(12)units. Insulin Lispro (Human) Inj (Humalog Inj) 1,000 Unit/10 Ml Vial 4-10 UNITS SQ QID for Blood Sugar Management, #1 VIAL 0 Refills Max dose at bedtime:( )units; sugars < 70,(0)units; sugars 150-199,(2)units; sugars 200-249,(4)units; sugars 250-299,(7)units; sugars 300-349,(10)units; sugars more than 349,(12)units. Ipratropium-Albuterol Neb (Duoneb) 0.5-2.5 Mg/3 Ml Neb 1 NEBULE INH Q6HR NEB for Breathing Treatment, #120 NEBULE 0 Refills [Skin Cream] () TP BID for Rash Discontinued Medications: Carvedilol (Carvedilol) 12.5 Mg Tab 12.5 MG PO BID, #60 TAB 0 Refills Losartan (Losartan) 25 Mg Tab 25 MG PO DAILY for Blood Pressure Management, #30 TAB 0 Refills Arya Garcia MD Aug 08, 2017 08:55
[2017-08-08] MEDS: BUDESONIDE-FORMOTEROL 160/4.5 MCG INHALER INH SCH (09:00)
[2017-08-08] MEDS: CEFUROXIME AXETIL 500 MG TAB PO SCH (09:02)
[2017-08-08] MEDS: ASPIRIN 81 MG CHEW TAB CHEW SCH (09:02)
[2017-08-08] MEDS: amLODIPine BESYLATE 5 MG TAB PO SCH (09:02)
[2017-08-08] MEDS: CARVEDILOL 6.25 MG TAB PO SCH (09:03)
[2017-08-08] MEDS: SODIUM CHLORIDE 0.9% FLUSH 10 ML FLUSH IV FLUSH SCH (09:03)
[2017-08-08] MEDS: INSULIN DETEMIR 100 UNITS/ML VIAL SQ SCH (09:03)
[2017-08-08] MEDS: ENOXAPARIN SODIUM 30 MG/0.3 ML SYRINGE SQ SCH (09:04)
[2017-08-08] MEDS ORDERED: predniSONE 20 MG TAB PO SCH (10:00)
--- NOTE | 2017-08-08 12:59 | HHI.PR ---
Subjective Remarks Feels better . On O 2 at 3 L. Will need O2 at [facility]. No SOB at Rest. CT shows basal infiltrates. No fever Objective Vital Signs Date Time Temp Pulse Resp B/P (MAP) Pulse Ox O2 Delivery O2 Flow Rate FiO2 08/08/17 12:00 60 08/08/17 11:16 96 Nasal Cannula 2.00 08/08/17 11:00 61 08/08/17 11:00 91 Nasal Cannula 2.00 Humidified 08/08/17 11:00 98.4 66 20 100/59 (73) 91 08/08/17 10:00 93 Nasal Cannula 2.00 Humidified 08/08/17 10:00 61 08/08/17 09:00 62 08/08/17 08:00 Nasal Cannula 3.00 08/08/17 08:00 64 08/08/17 07:15 98.0 65 19 144/66 (92) 96 08/08/17 07:15 96 Nasal Cannula 4.00 08/08/17 07:15 65 08/08/17 06:00 60 08/08/17 05:00 60 08/08/17 04:00 98.4 63 18 95/55 (68) 94 08/08/17 04:00 60 08/08/17 04:00 96 Nasal Cannula 4.00 08/08/17 03:00 60 08/08/17 02:00 66 08/08/17 01:00 60 08/08/17 00:00 98.4 63 20 118/70 (86) 94 08/08/17 00:00 64 08/08/17 00:00 96 Nasal Cannula 4.00 08/07/17 23:00 60 08/07/17 22:00 62 08/07/17 21:00 70 08/07/17 20:19 93 Nasal Cannula 5.00 08/07/17 20:00 96 Nasal Cannula 4.00 08/07/17 20:00 98.5 63 20 116/60 (78) 96 08/07/17 20:00 60 08/07/17 17:07 69 08/07/17 16:09 60 08/07/17 15:21 98.8 63 15 124/66 (85) 93 08/07/17 15:21 93 Nasal Cannula 4.50 08/07/17 15:00 61 08/07/17 14:44 62 08/07/17 13:14 64 I/O 08/07/17 08/07/17 08/07/17 08/08/17 08/08/17 08/08/17 07:00 15:00 23:00 07:00 15:00 23:00 Intake Total 580 ml 720 ml 320 ml Output Total 350 ml 175 ml Balance 230 ml 545 ml 320 ml Intake Oral 480 ml 720 ml 320 ml IV Total 100 ml Output Urine Total 350 ml 175 ml # Voids 3 # Bowel Movements 0 0 Result Diagram: 08/08/17 0503 08/08/17 0503 Objective Remarks GENERAL: This is a well-nourished, well-developed patient, in no distress. CARDIOVASCULAR: Irregular rate and rhythm without murmurs, gallops, or rubs. RESPIRATORY: No wheezes, diminished breath sounds bilaterally.No crackles GASTROINTESTINAL: Abdomen soft, non-tender,nondistended. Normal active bowel sounds MUSCULOSKELETAL: Extremities without clubbing, cyanosis,and has no edema. NEURO: Alert & Oriented. Moves all ext x4 Assessment and Plan Assessment and Plan Assessment and Plan Disease Oriented Problem List: (1) Hyperlipemia (2) Hypertension (3) Acute renal failure (4) Hypoglycemia (5) UTI (urinary tract infection) (6) CHF exacerbation (7) Chronic systolic CHF (congestive heart failure) (8) Pneumonia, Aspiration Symptom Scale: (1) Confusion 0-10 Scale: Unable to quantify (2) Anorexia 0-10 Scale: Unable to quantify (3) Cough 0-10 Scale: Unable to quantify (4) Dyspnea and respiratory abnormalities Plan : 1. Ceftin 500 mg bid X 5 days 2. Increase po Liquids 3. Hold lasix 4. BMP in am 5. Nebs qid , Duoneb. 6. To rehab 7. Wean O2 to N/C 2 L 8. To rehab on O2 . will see as OP in 2 weeks Rohan Gates MD Aug 08, 2017 12:59
--- NOTE | 2017-08-12 11:22 | RSPPFT ---
DATE OF PROCEDURE: 08/06/17 COMMENTS: Spirometry demonstrates an FEV1 of 0.9 at 42% of predicted, FVC of 0.9 at 36%, FEF 25-75 is 75%. Post-bronchodilator study demonstrated improvements in the FVC suggesting a response. Lung volumes were not completed. Flow volume loops suggest a restrictive pattern. IMPRESSION: 1. Moderately severe restrictive disease. 2. Mild response to use of bronchodilator indicating some reversibility.
== END 2017-08-08 15:20 | DRG 177 ==
LOC: NEPE 21:57 → NEDA 07-30 00:11 → HCIS 07-30 02:26
PROVIDERS: ADMIT Internal Medicine; ATTEND Internal Medicine
DX: J69.0 Pneumonitis due to inhalation of food and vomit (principal); G93.41 Metabolic encephalopathy; I50.23 Acute on chronic systolic (congestive) heart failure; I13.0 Hypertensive heart and chronic kidney disease with heart failure and stage 1 through stage 4 chronic kidney disease, or unspecified chronic kidney disease; N17.9 Acute kidney failure, unspecified; N39.0 Urinary tract infection, site not specified; E86.0 Dehydration; E11.649 Type 2 diabetes mellitus with hypoglycemia without coma; E78.5 Hyperlipidemia, unspecified; I25.10 Atherosclerotic heart disease of native coronary artery without angina pectoris; H54.8 Legal blindness, as defined in USA; R63.0 Anorexia; N28.1 Cyst of kidney, acquired; N18.9 Chronic kidney disease, unspecified; E11.22 Type 2 diabetes mellitus with diabetic chronic kidney disease; Z66 Do not resuscitate; F03.90 Unspecified dementia, unspecified severity, without behavioral disturbance, psychotic disturbance, mood disturbance, and anxiety; Z95.0 Presence of cardiac pacemaker; Z95.1 Presence of aortocoronary bypass graft; Z79.82 Long term (current) use of aspirin; Z79.4 Long term (current) use of insulin; Z51.5 Encounter for palliative care
CPT/HCPCS: 36600; 51702; 71010; 71250; 76775; 80048; 80053; 81001; 82550; 82552; 82805; 82948; 83605; 83690; 83735; 83880; 84484; 85025; 85610; 85730; 86140; 87040; 87086; 93005; 93306; 94002; 94003; 94060; 94150; 94620; 94640; 94664; 96374; 96375; J0456; J0696; J1650; J1815; J1940; J2920; J2930; J3480; J7040; J7042; J7050; J7512